=== PATIENT | female | born 1985 | race Caucasian/White ===

== ENCOUNTER → 2017-09-23 09:07 | Outpatient (POV) | payer OTHER, SELFPAY | PROVIDERS: PCP Internal Medicine Adolescent Medicine; Visit Provider Otolaryngology | DX: Z00.00 Encounter for general adult medical examination without abnormal findings (principal) ==

== ENCOUNTER → 2017-10-31 14:35 | Outpatient (CLI) | payer OTHER, SELFPAY ==
[2017-10-31 16:57] LABS: Free Thyroxine Index 5.2 ug/dL (5.93-13.13); T4 (Thyroxine) 15.4 ug/dl (4.7-13.3); Thyroid Stimulating Hormone 1.44 uIU/ml (0.358-3.740); Triiodothryronine (T3) Uptake 34 % (31-39)
== END ==
PROVIDERS: Visit Provider Nurse Practitioner Family
DX: E03.9 Hypothyroidism, unspecified (principal)
CPT/HCPCS: 36415; 84436; 84443; 84479

== ENCOUNTER → 2017-12-18 08:42 | Outpatient (POV) | payer OTHER, SELFPAY | PROVIDERS: Visit Provider Dermatology | DX: Z00.00 Encounter for general adult medical examination without abnormal findings (principal) ==

== ENCOUNTER → 2018-02-04 15:14 | Outpatient (CLI) | payer OTHER, SELFPAY ==
--- NOTE | 2018-02-04 15:15 | CA_ITS ---
CA echo doppler complete PROCEDURE: INDICATIONS FOR THE TEST: Chest pain COPD Heart Murmur Tobacco Smoking Palpitations Fatigue Syncope Edema Hypertension Diabetes Mellitus Rheumatic Fever SOB+THORNE Obesity Hyperlipidemia Family History HD Additional History HYPOTHYROIDISM PATIENT INFORMATION HEIGHT: 63 WEIGHT:150 GENDER: Female B/P:128/78 2-D/M-MODE INTERPRETATION: 2-D MEASUREMENTS OBSERVED VALUES IN CMS Right Ventricular Dimension (RVDd) 2.0 Interventricular Septum (Thickness)(IVsd) 1.0 Left Ventricular Internal Dimensions(LVIDd) 4.7 Left Ventricular Posterior Wall (Thickness)(LVPWd) 0.8 Aortic Root 2.9 Aortic Cusp Separation 2.1 Left Atrial Dimensions (LAD) 3.3 2D 1. Left atrium is normal size, left ventricle is normal size, there is no concentric left ventricular hypertrophy, visually estimated ejection fraction 55% with no obvious regional wall motion abnormality. 2. The right atrium and right ventricle are normal size and contractility. 3. The aortic, mitral and tricuspid valve are structurally normal. 4. The pulmonic valve is poorly visualized. 5. No significant pericardial effusion noted. DOPPLER INTERROGATION: Doppler interrogation of the aortic, mitral and tricuspid valvular presence of mild mitral and tricuspid regurgitation, tricuspid and jet velocity is insufficient for calculation of the right ventricular systolic pressure, diastolic parameters are within normal range. CONCLUSION: 1. Normal left ventricular size, preserved left ventricular systolic function, visually estimated ejection fraction 55% with no obvious regional motion abnormality, diastolic parameters are within normal range. 2. Mild mitral and tricuspid regurgitation 3. No significant pericardial effusion noted.
== END ==
PROVIDERS: Family Provider Internal Medicine Adolescent Medicine; PCP Internal Medicine Adolescent Medicine; Visit Provider Internal Medicine Cardiovascular Disease
DX: R06.00 Dyspnea, unspecified (principal)
CPT/HCPCS: 93306

== ENCOUNTER → 2018-05-06 14:43 | Outpatient (CLI) | payer OTHER, SELFPAY ==
[2018-05-06 16:36] LABS: Free Thyroxine Index 5.1 ug/dL (5.93-13.13); T4 (Thyroxine) 16.5 ug/dl (4.7-13.3); Thyroid Stimulating Hormone 1.42 uIU/ml (0.358-3.740); Triiodothryronine (T3) Uptake 31 % (31-39)
[2018-05-06 17:02] LABS: HCG,Quantitative 0 mIU/mL
== END ==
PROVIDERS: PCP Internal Medicine Adolescent Medicine; Visit Provider Physician Assistant
DX: R11.0 Nausea (principal)
CPT/HCPCS: 36415; 84436; 84443; 84479; 84702

== ENCOUNTER → 2018-06-05 12:19 | Outpatient (REF) | payer OTHER, SELFPAY | LOC: LAB 12:19 | PROVIDERS: Visit Provider Internal Medicine Adolescent Medicine | DX: J02.9 Acute pharyngitis, unspecified (principal) | CPT/HCPCS: 87070; 87077 ==

== ENCOUNTER → 2018-06-23 10:29 | Outpatient (POV) | payer OTHER, SELFPAY | PROVIDERS: Visit Provider Otolaryngology | DX: Z00.00 Encounter for general adult medical examination without abnormal findings (principal) ==

== ENCOUNTER → 2018-08-05 14:56 | Outpatient (CLI) | payer OTHER, SELFPAY ==
[2018-08-05 15:29] LABS: HCG,Quantitative 0 mIU/mL
== END ==
PROVIDERS: PCP Internal Medicine Adolescent Medicine; Visit Provider Internal Medicine Adolescent Medicine
DX: N91.2 Amenorrhea, unspecified (principal)
CPT/HCPCS: 36415; 84702

== ENCOUNTER 2018-10-03 14:45 | Emergency (ER) | payer OTHER, SELFPAY ==
--- NOTE | 2018-10-03 14:55 | XR_ITS ---
XR foot RT min 3V Ordering Physician: Terence Harrison Patient Age: 33 years: Female HISTORY: ITS.REASON: FELL OVER A TOY. Pain at the lateral foot TECHNIQUE: 3 views right foot nonweightbearing COMPARISON :May 2017 right foot 3 view FINDINGS No acute fracture nor dislocation The lateral foot, and fifth metatarsal appear intact with no fracture nor dislocation here. The other metatarsals intact. Cuboid and tarsals appear similar to previous study 2017. No acute finding. Hindfoot unremarkable.. Toes intact. IMPRESSION: . Right foot intact. No fracture
[2018-10-03 15:11] VITALS: BP 145/92; PULSE 85; RESP 18; TEMP 36.6; O2SAT 98; BMI 25.1
--- NOTE | 2018-10-03 15:13 | HMH.EDUTC ---
[facility] [place] Disposition Clinical Impression: Ankle injury Qualifiers: Encounter type: initial encounter Laterality: right Qualified Code(s): S99.911A - Unspecified injury of right ankle, initial encounter Foot injury Qualifiers: Encounter type: initial encounter Laterality: right Qualified Code(s): S99.921A - Unspecified injury of right foot, initial encounter Foot pain Qualifiers: Laterality: right Qualified Code(s): M79.671 - Pain in right foot Foot sprain Qualifiers: Encounter type: initial encounter Laterality: right Qualified Code(s): S93.601A - Unspecified sprain of right foot, initial encounter Disposition: Home, Self-Care Condition on Discharge: Good Instructions: DI for Ankle Pain, DI for Foot Pain, DI for Foot Sprain Additional Instructions: Rest the extremity, apply ice for 15 minutes 4 times per day for 15 minutes as tolerated, wear the compression bandage for comfort, elevate the extremity as tolerated while resting. Take ibuprofen for the pain. Follow up with your primary care physician or podiatry (Dr. Arboleda) if it is not getting better in 48 hours or so. GO TO THE ER FOR ANY WORSENING SYMPTOMS OR LIFE THREATENING SYMPTOMS Prescriptions: Ibuprofen [Ibuprofen 600mg Tablet] 600 mg PO Q6HP PRN #30 tab PRN Reason: Mild Pain Referrals: Nolberto Benavidez MD [Primary Care Provider] - Isadora Arboleda DPM [Staff Physician] - Forms: Work/School Release Time of Disposition: 15:33 Medical Decision Making - Medical Records Medical records reviewed: No: I reviewed the patient's medical records. - Elio Inquiry Pt receiving controlled substance: No Elio was queried for this patient: No Vital Signs: 10/03/18 15:11 10/03/18 15:39 Temperature 97.9 F 98 F Temperature Source Oral Oral Pulse Rate 82 Pulse Rate [Right Radial] 85 Respiratory Rate 18 18 Blood Pressure 140/87 Blood Pressure [Right Arm] 145/92 H Blood Pressure Mean [Right Arm] 109 02 Sat by Pulse Oximetry 98 Oxygen Delivery Method Room Air Room Air Orders (Tests/Meds): ED MEDICATIONS Discontinued Medications Generic Name Dose Route Start Last Admin Trade Name Freq PRN Reason Stop Dose Admin Ibuprofen 800 mg 10/03/18 15:16 10/03/18 15:21 Motrin 400mg Tablet PO 10/03/18 15:17 800 mg ONCE ONE Administration ORDERS Category Date Time Status XR foot RT min 3V Stat Exams 10/03/18 14:55 Taken - Radiology Data #1 Image(s): Ankle, Foot/Toes Image Reviewed: Yes I reviewed the patient's radiology image, Yes I reviewed the patient's radiology image w/the ED provider Preliminary Findings: Normal/NAD [facility] [place] HPI - General Stated complaint: AO [id number] Injured R foot Time Seen by Provider: 10/03/18 15:13 - History of Present Illness Provider Complaint: She states that earlier today she tripped over some toys in her floor. She felt a pop in her right foot and since then she has had right foot pain with ambulation. - Related Data Home Medications Medication Instructions Recorded Confirmed levothyroxine 50 mcg tablet 50 mcg PO DAILY tab 11/10/17 05/18/18 bupropion HCl XL 150 mg 24 hr 150 mg PO DAILY 05/18/18 05/18/18 tablet, extended release topiramate XR 50 mg PO 30 Days #30 cap 09/09/18 09/09/18 capsule,extended release 24 hr Previous Rx's Medication Instructions Recorded norgestimate 0.25 mg-ethinyl 1 tab PO DAILY 30 Days #30 tab 05/18/18 estradiol 35 mcg tablet fluconazole 150 mg tablet 150 mg PO ONCE 3 Days #2 tab 09/08/18 nitrofurantoin 100 mg PO BID 10 Days #20 cap 09/09/18 monohydrate/macrocrystals 100 mg capsule phenazopyridine 100 mg tablet 100 mg PO TID #9 tab 09/09/18 Ibuprofen [Ibuprofen 600mg 600 mg PO Q6HP PRN #30 tab 10/03/18 Tablet] Allergies Allergy/AdvReac Type Severity Reaction Status Date / Time amoxicillin [AMOXICILLIN] Allergy Unknown I-RASH Verified 10/03/18 15:14 [facility] History - Hepatitis A
[2018-10-03 15:39] VITALS: BP 140/87; PULSE 82; RESP 18; TEMP 36.6; O2SAT 100
== END 2018-10-03 15:43 | disposition home or self-care (01) ==
PROVIDERS: Emergency Provider Nurse Practitioner Family; PCP Internal Medicine Adolescent Medicine
DX: S93.601A Unspecified sprain of right foot, initial encounter (principal); W01.0XXA Fall on same level from slipping, tripping and stumbling without subsequent striking against object, initial encounter; Y92.019 Unspecified place in single-family (private) house as the place of occurrence of the external cause; Z88.1 Allergy status to other antibiotic agents
CPT/HCPCS: 73630; 99201

== ENCOUNTER → 2018-10-28 13:10 | Outpatient (CLI) | payer OTHER, SELFPAY ==
[2018-10-28 13:45] LABS: Basophils % 0.4 % (0.1-2.0); Eosinophils % 0.4 % (0.1-12.0); Hematocrit 43.1 % (37.0-47.0); Lymphocytes # 3.2 K/mm3 (0.7-4.5); Lymphocytes % 31.7 % (10-50); Mean Corpuscular HGB Conc 32.5 g/dL (31.8-35.4); Mean Corpuscular Volume 95.4 fl (81-99); Mean Platelet Volume 6.9 fl (7.4-10.4); Monocytes # 0.3 K/mm3 (0.1-1.0); Monocytes % 2.8 % (1.7-9.3); Neutrophils # 6.5 K/mm3 (1.8-7.8); Neutrophils % 64.5 % (37.0-80.0); Platelet Count 435 K/mm3 (142-424); Red Blood Count 4.52 M/mm3 (4.20-5.40); Red Cell Distribution Width 13.2 % (11.5-17.5)
== END ==
PROVIDERS: Visit Provider Urology
DX: R23.3 Spontaneous ecchymoses (principal); T14.8XXA Other injury of unspecified body region, initial encounter
CPT/HCPCS: 36415; 85025

== ENCOUNTER → 2018-11-10 15:32 | Outpatient (CLI) | payer OTHER, SELFPAY ==
[2018-11-10 15:35] LABS: Microscopic, Urine URINE MICROSCOPIC (MICROSCOPIC)
[2018-11-10 16:32] LABS: Appearance,Urine CLEAR (Clear); Bilirubin,Urine Negative (Negative); Blood, Urine TRACE-I (Negative); Color,Urine YELLOW (Yellow); Glucose,Urine (UA) Negative (Negative); Ketones,Urine Negative (Negative); Leukocyte Esterase,Urine 2+ (Negative); Nitrate,Urine Negative (Negative); PH,Urine 6.5 (5.0-8.5); Protein,Urine Negative (Negative); Specific Gravity, Urine <= 1.005 (1.005-1.030); Urobilinogen,Urine 0.2 EU/dl (0.2)
[2018-11-10 16:50] LABS: Bacteria,Urine Trace /lpf; RBC,Urine Occasional #/hpf (0-3)
== END ==
PROVIDERS: Visit Provider Urology
DX: R39.89 Other symptoms and signs involving the genitourinary system (principal)
CPT/HCPCS: 81001; 87086; 87088; 87186

== ENCOUNTER → 2018-11-27 14:59 | Outpatient (CLI) | payer OTHER, SELFPAY ==
--- NOTE | 2018-11-27 15:13 | CT_ITS ---
CT abdomen pelvis wo con CLINICAL INDICATION: Right flank pain ITS.REASON: STONE ORDERING PHYSICIAN: Nolberto Benavidez MD PATIENT AGE: 33 years COMPARISON: None TECHNIQUE: Axial images obtained with sagittal and coronal reformats. All CT scans at the facility use one or more dose reduction, viz: automated exposure control, ma/kV adjustment per patient size (including targeted exams where dose is matched to indication, i.e. head), or iterative reconstruction technique. PROCEDURE: Oral Contrast: None IV Contrast: None . FINDINGS: No acute finding in the lung bases. The liver, spleen, adrenal glands, and pancreas and gallbladder have an unremarkable unenhanced CT appearance. No renal or ureteral calculi. No hydronephrosis. There is minimal prominence of the right ureter nonspecific and could be related to recently passed stone or urinary tract infection. There is mild amount of retained colonic feces. No intestinal obstruction or free air apparent no evidence of appendicitis or diverticulitis. No pelvic mass or abnormal fluid collection or focal inflammatory change. No acute bony findings. IMPRESSION: There is no renal or ureteral calculi. There is minimal ectasia of the right ureter nonspecific but could be related to a recently passed stone or urinary tract infection Otherwise negative CT abdomen pelvis without contrast
== END ==
PROVIDERS: PCP Internal Medicine Adolescent Medicine; Visit Provider Internal Medicine Adolescent Medicine
DX: N20.0 Calculus of kidney (principal)
CPT/HCPCS: 74176

== ENCOUNTER → 2019-03-16 12:55 | Outpatient (CLI) | payer OTHER, SELFPAY ==
--- NOTE | 2019-03-16 12:59 | XR_ITS ---
XR chest 2V HISTORY: ITS.REASON: cough wheezing ORDERING PHYSICIAN: YEN Anguiano PATIENT AGE: 33 years COMPARISON: 02/20/2019 FINDINGS: The cardiomediastinal silhouette and pulmonary vascularity are within normal limits. The lungs are clear without infiltrates, suspicious nodules, or pleural effusions. No acute bony abnormalities. IMPRESSION: Negative chest, no acute finding
[2019-03-16 14:53] LABS: Basophils # 0.1 K/mm3 (0-0.2); Basophils % 0.4 % (0.1-2.0); Eosinophils # 0.1 K/mm3 (0.0-0.4); Eosinophils % 0.7 % (0.1-12.0); Hematocrit 43.3 % (37.0-47.0); Hemoglobin 13.9 g/dL (12.2-16.2); Lymphocytes # 2.6 K/mm3 (0.7-4.5); Lymphocytes % 19.8 % (10-50); Mean Corpuscular Hemoglobin 30.6 pg (27.0-31.2); Mean Corpuscular Volume 95.6 fl (81-99); Mean Platelet Volume 6.9 fl (7.4-10.4); Monocytes # 0.6 K/mm3 (0.1-1.0); Monocytes % 4.7 % (1.7-9.3); Neutrophils # 9.6 K/mm3 (1.8-7.8); Neutrophils % 74.4 % (37.0-80.0); Platelet Count 377 K/mm3 (142-424); Red Blood Count 4.53 M/mm3 (4.20-5.40); Red Cell Distribution Width 12.9 % (11.5-17.5); White Blood Count 12.9 K/mm3 (4.8-10.8)
== END ==
PROVIDERS: PCP Internal Medicine Adolescent Medicine; Visit Provider Physician Assistant
DX: R05 Cough (principal); R06.2 Wheezing
CPT/HCPCS: 36415; 71046; 85025

== ENCOUNTER → 2019-05-31 14:15 | Outpatient (CLI) | payer OTHER, SELFPAY ==
[2019-05-31 17:28] LABS: Free Thyroxine Index 4.9 ug/dL (5.93-13.13); T4 (Thyroxine) 14.5 ug/dl (4.7-13.3); Thyroid Stimulating Hormone 2.31 uIU/ml (0.358-3.740); Triiodothryronine (T3) Uptake 34 % (31-39)
== END ==
PROVIDERS: Visit Provider Physician Assistant
DX: E03.9 Hypothyroidism, unspecified (principal)
CPT/HCPCS: 36415; 84436; 84443; 84479

== ENCOUNTER → 2019-06-08 08:41 | Outpatient (CLI) | payer OTHER, SELFPAY ==
--- NOTE | 2019-06-08 09:00 | US_ITS ---
PROCEDURE: US GALLBLADDER CLINICAL INDICATION: UPPER ABD PAIN Right upper quadrant pain with nausea COMPARISON: No exams were available for comparison FINDINGS: Pancreas: Unremarkable/Not well seen Liver: Unremarkable. There is appropriate direction of blood flow within a non dilated portal vein. Right kidney: Unremarkable appearing. No hydronephrosis. Gallbladder: No stones are evident. There is no gallbladder wall thickening. Common duct is normal in diameter. Minimal amount of gallbladder sludge noted IMPRESSION: No gallstones apparent. Minimal gallbladder sludge of questionable clinical significance Dictated by: Delonte Murphy MD 06/08/2019 18:06 Electronically signed by Delonte Murphy MD in [place] 06/08/2019 18:06
== END ==
PROVIDERS: PCP Internal Medicine Adolescent Medicine; Visit Provider Nurse Practitioner Family
DX: R10.10 Upper abdominal pain, unspecified (principal)
CPT/HCPCS: 76705

== ENCOUNTER → 2019-08-27 13:01 | Outpatient (CLI) | payer OTHER, SELFPAY ==
--- NOTE | 2019-08-27 13:02 | CA_ITS ---
APPROVED REPORT Left Lower Extremity Venous Study for DVT. Cnc Lathe Machine Operator: Joyce Kaur RT(R) Indications Lower Extremity Pain: Lower Extremity Edema: Left left leg edema/pain Vein Imaging CFV (L): compressive, spontaneous, phasic, augmentation FEM (L): compressive, spontaneous, phasic, augmentation POP (L): compressive, spontaneous, phasic, augmentation PTV (L): Compressible GSV (L): compressive, spontaneous, phasic, augmentation SSV (L): Compressible Peroneals (L):Compressible GAS (L): Compressible Findings No evidence of DVT or superficial thrombophlebitis in the veins scanned of the left lower extremity. Conclusion No evidence of DVT or superficial thrombophlebitis in the veins scanned of the left lower extremity. Electronically signed by : Delonte Murphy MD 08/27/2019 15:46:29
== END ==
PROVIDERS: PCP Internal Medicine Adolescent Medicine; Visit Provider Internal Medicine Cardiovascular Disease
DX: R60.0 Localized edema (principal)
CPT/HCPCS: 93971

== ENCOUNTER → 2019-09-06 08:42 | Outpatient (CLI) | payer OTHER, SELFPAY ==
[2019-09-06 10:04] LABS: Free T4 (Free Thyroxine) 1.29 ng/dl (0.76-1.46); Thyroid Stimulating Hormone 1.62 uIU/ml (0.358-3.740)
[2019-09-06 10:05] LABS: HCG,Quantitative 0 mIU/mL
[2019-09-08 18:16] LABS: Triiodothyronine (T3) Free 3.1 pg/mL (2.0-4.4)
== END ==
PROVIDERS: Nurse Practitioner Obstetrics & Gynecology; Visit Provider Internal Medicine
DX: Z34.90 Encounter for supervision of normal pregnancy, unspecified, unspecified trimester (principal); E07.9 Disorder of thyroid, unspecified
CPT/HCPCS: 36415; 84439; 84443; 84481; 84702

== ENCOUNTER → 2019-09-24 15:22 | Outpatient (CLI) | payer OTHER, SELFPAY ==
[2019-09-24 16:17] LABS: Alanine Aminotransferase 17 U/L (12-78); Albumin Level 3.4 gm/dL (3.4-5.0); Albumin/Globulin Ratio 1.2 (1.1-1.8); Alkaline Phosphatase 58 U/L (46-116); Anion Gap 11.9 mEq/L (5-15); Aspartate Amino Transferase 13 U/L (15-37); Bilirubin,Total 0.3 mg/dL (0.2-1.0); Blood Urea Nitrogen 9 mg/dL (7-18); Calcium 8.5 mg/dL (8.5-10.1); Carbon Dioxide 27 mmol/L (21.0-32.0); Chloride 105 mmol/L (98-107); Creatinine,Serum 0.86 mg/dL (0.55-1.02); Estimated Glomerular Filt Rate 76 ml/min (>60); GFR (African American) 93 ML/MIN (>60); Globulin 2.8 gm/dl (1.3-3.2); Glucose 92 mg/dL (74-106); Potassium 3.9 mmoL/L (3.5-5.1); Sodium 140 mmol/L (136-145); Total Protein,Serum 6.2 gm/dL (6.4-8.2)
== END ==
PROVIDERS: Visit Provider Internal Medicine Adolescent Medicine
DX: R10.11 Right upper quadrant pain (principal)
CPT/HCPCS: 36415; 80053

== ENCOUNTER → 2019-09-30 10:20 | Outpatient (CLI) | payer OTHER, SELFPAY ==
--- NOTE | 2019-09-30 10:24 | NM_ITS ---
PROCEDURE: NM HEPATOBILIARY W PHARM CLINICAL INDICATION: RUQ pain, GB SLUDGE COMPARISON: No exams were available for comparison TECHNIQUE: DOSE: 8.14 mCi technetium Choletec and 1.3 mcg of CCK FINDINGS: Homogeneous activity is present within the hepatic parenchyma. Activity is present in the gallbladder by 50 minutes. Activity is present in the small bowel by 5 minutes. The gallbladder ejection fraction is calculated to be 22 percent.. There was delay in visualization of the gallbladder only noted at 50 minutes. At this time CCK was administered. Most of the activity at that time was in the small bowel. There was no symptoms noted with CCK infusion IMPRESSION: 1. There was some delay in visualization of the gallbladder only noted at 50 minutes. Small bowel is visualized by 5 minutes. 2. Gallbladder ejection fraction is low at 22 percent. This could however in part be due to the delayed visualization of the gallbladder versus gallbladder dyskinesia. No symptoms were reported with CCK infusion Dictated by: Delonte Murphy MD 10/01/2019 09:26 Electronically signed by Delonte Murphy MD in [place] 10/01/2019 09:26
[2019-09-30 11:03] LABS: Urine Pregnancy, HCG Qual. Negative (Negative)
== END ==
PROVIDERS: PCP Internal Medicine Adolescent Medicine; Visit Provider Internal Medicine Adolescent Medicine
DX: R10.11 Right upper quadrant pain (principal); K82.8 Other specified diseases of gallbladder
CPT/HCPCS: 78227; 81025; A9537; J2805

== ENCOUNTER → 2019-10-11 08:31 | Outpatient (CLI) | payer OTHER, SELFPAY ==
--- NOTE | 2019-10-11 08:33 | XR_ITS ---
PROCEDURE: XR CERVICAL SPINE W FLEX/EXT CLINICAL INDICATION: neck pain COMPARISON: No exams were available for comparison FINDINGS: There is straightening of the cervical lordosis. There is normal alignment. No fracture or dislocation. No lytic or blastic change. No evidence of cervical rib. No significant degenerative changes. Flexion and extension views are obtained. No abnormal subluxation in flexion. On the extension image, there is slight increased posterior subluxation C4 on C5 compared to the remaining levels. The posterior subluxation at this level is approximately 2 mm. This is of questionable clinical significance. The disc spaces are well preserved. IMPRESSION: 1. There is straightening/reversal of the normal lordosis which may be due to patient positioning or muscle spasm. 2. Mild posterior subluxation in extension of C4 on C5 of approximately 2 mm Dictated by: Delonte Murphy MD 10/11/2019 09:11 Electronically signed by Delonte Murphy MD in [place] 10/11/2019 09:11
== END ==
PROVIDERS: PCP Internal Medicine Adolescent Medicine; Visit Provider Nurse Practitioner Family
DX: G43.919 Migraine, unspecified, intractable, without status migrainosus (principal); M54.2 Cervicalgia
CPT/HCPCS: 72052

== ENCOUNTER → 2019-10-12 16:01 | Outpatient (CLI) | payer OTHER, SELFPAY ==
--- NOTE | 2019-10-12 16:01 | MR_ITS ---
PROCEDURE: MR CERVICAL SPINE WO CON CLINICAL INDICATION: abn cspine xr, neck pn, bilat upper ext weaknes Neck pain, abnormal radiograph. COMPARISON: XR CERVICAL SPINE W FLEX/EXT from 10/11/2019 MR HEAD/BRAIN WO CON from 10/12/2019 TECHNIQUE: Standard multiplanar multiecho sequences are performed without contrast. 3-D MIP and myelographic images are also rendered and reviewed FINDINGS: There is straightening of the cervical lordosis. This is nonspecific and could be due to patient positioning or muscle spasm. Craniocervical junction has an unremarkable appearance. C2-C3: Unremarkable. C3-C4: Unremarkable. C4-C5: Unremarkable. No abnormal ligamentous signal. There is normal alignment at C4-C5. C5-C6: Very minimal bulging of the disc centrally slightly eccentric toward the right without impingement. C6-C7 and C7-T1 have an unremarkable appearance. No prevertebral abnormal signal or soft tissue swelling. There is an air-fluid level in the sphenoid sinus IMPRESSION: 1. Straightening of cervical lordosis. 2. Minimal bulging disc at C5-C6 3. No disc herniation or canal stenosis. Dictated by: Delonte Murphy MD 10/13/2019 10:17 Electronically signed by Delonte Murphy MD in [place] 10/13/2019 10:17
--- NOTE | 2019-10-12 16:01 | MR_ITS ---
PROCEDURE: MR HEAD/BRAIN WO CON CLINICAL INDICATION: migraine Severe headache with neck pain, cluster headache COMPARISON: No exams were available for comparison TECHNIQUE: Routine multiplanar multi echo sequences are performed without gadolinium enhancement. FINDINGS: No midline shift, mass effect, intracranial hemorrhage, or hydrocephalus is evident. The cerebellopontine angles, cerebellum, and brainstem are unremarkable. There are few scattered small punctate foci increased T2 white matter signal intensity in the frontal lobes and right parietal lobe. These are nonspecific. Unremarkable pituitary, optic chiasm, corpus callosum, and craniocervical junction. There is an air-fluid level in the sphenoid sinus on the right with mucosal thickening of the sphenoid sinus. There is marked mucosal thickening of the left maxillary sinus with air-fluid level in the left maxillary sinus and with bilateral ethmoid sinus mucosal thickening and minimal mucosal thickening of the right maxillary sinus. IMPRESSION: 1. Nonspecific small T2 white matter hyperintensities. This may be seen with migraine headache. Ischemic gliotic foci or demyelinating process would be included in the differential diagnosis. 2. Sinusitis with air-fluid levels in the right sphenoid sinus and the left maxillary sinus. Dictated by: Delonte Murphy MD 10/13/2019 13:25 Electronically signed by Delonte Murphy MD in [place] 10/13/2019 13:25
== END ==
PROVIDERS: PCP Internal Medicine Adolescent Medicine; Visit Provider Nurse Practitioner Family
DX: G43.919 Migraine, unspecified, intractable, without status migrainosus (principal); M54.2 Cervicalgia; R29.898 Other symptoms and signs involving the musculoskeletal system; R93.7 Abnormal findings on diagnostic imaging of other parts of musculoskeletal system
CPT/HCPCS: 70551; 72141; 76376

== ENCOUNTER 2019-10-14 08:00 | Outpatient (RCR) | payer OTHER, SELFPAY ==
--- NOTE | 2019-10-11 16:12 | HMH.PTOPEV ---
PT Outpatient Evaluation Rehab PT Outpatient Evaluation Start: 10/11/19 14:59 Freq: Status: Active Protocol: Document 10/11/19 15:29 ROSALINDA (Rec: 10/11/19 16:11 ROSALINDA [id number]) Electronically Signed By Faisal Phillips, PT 10/11/19 15:29 Outpatient Therapy Subjective History Subjective History Pt reports h/o chronic neck pain and tightness, however, reports migraine/cervicogenic CAMARGO's over the last couple months. Pt reports CAMARGO freq at ~5-6x/wk, and reports R > L sided neck, no radicular s/s. Recent cervical Xray reveals some decreased lordosis. Chief Complaint Pain,Stiff Symptom Type Ache,Dull Symptoms Relieved By Rest/Positioning,Heat Symptoms Aggravated By Physical Activity,Lifting Prior Functional Limitations Reaching,Lifting,Housework Current Functional Limitations Reaching,Lifting,Housework Symptom Description Constant but Variable Level of pain today (0-10) 6 Pain scale - at its best (0-10) 5 Pain scale - at its worst (0-10) 9 Cervical Eval Palpation Cervical Muscles R Cervical Paraspinal,R Suboccipital,R CT Junction,L CT Junction,R Upper Trapezius Cervical/Thoracic Palpation Findings Tenderness,Trigger Point Posture Head/C-Spine Posture Sitting Position Neutral Position Head/C-Spine Posture Standing Position Neutral Position Flexibility Deficits Upper Trapezius Muscle Length (R) Mild Tightness,(R) Moderate Tightness Pectoralis Major Muscle Length (R) Mild Tightness,(L) Mild Tightness Pectoralis Minor Muscle Length (R) Mild Tightness,(L) Mild Tightness Passive Joint Mobility Cervical PIVM WNL: R OA L OA R AA L AA R C2/3 L C2/3 R C3/4 L C3/4 R C4/5 L C4/5 R C5/6 L C5/6 R C6/7 L C6/7 R C7/T1 L C7/T1 AROM Cervical Spine Extension Active Range of 0-35 Motion (degrees) Cervical Spine Flexion Active Range of 0-35 Motion (degrees)
== END 2019-10-14 08:55 | disposition home or self-care (01) ==
LOC: PT 08:00
PROVIDERS: PCP Internal Medicine Adolescent Medicine; Visit Provider Nurse Practitioner Family
DX: M54.2 Cervicalgia (principal); G43.919 Migraine, unspecified, intractable, without status migrainosus
CPT/HCPCS: 20560; 97010; 97014; 97035; 97110; 97140; 97163; G0283

== ENCOUNTER → 2019-11-05 13:00 | Outpatient (CLI) | payer OTHER, SELFPAY | PROVIDERS: PCP Internal Medicine Adolescent Medicine; Visit Provider Physician Assistant | DX: R06.02 Shortness of breath (principal) | CPT/HCPCS: 93306 ==

== ENCOUNTER → 2019-12-29 08:52 | Outpatient (CLI) | payer OTHER, SELFPAY ==
[2019-12-29 09:19] LABS: Basophils # 0.1 K/mm3 (0-0.2); Basophils % 0.9 % (0.1-2.0); Eosinophils # 0.1 K/mm3 (0.0-0.4); Eosinophils % 1.1 % (0.1-12.0); Hematocrit 43.6 % (37.0-47.0); Hemoglobin 14.1 g/dL (12.2-16.2); Lymphocytes # 2.5 K/mm3 (0.7-4.5); Lymphocytes % 41.3 % (10-50); Mean Corpuscular HGB Conc 32.3 g/dL (31.8-35.4); Mean Corpuscular Hemoglobin 30.6 pg (27.0-31.2); Mean Corpuscular Volume 94.6 fl (81-99); Mean Platelet Volume 7.2 fl (7.4-10.4); Monocytes # 0.3 K/mm3 (0.1-1.0); Monocytes % 4.7 % (1.7-9.3); Neutrophils # 3.2 K/mm3 (1.8-7.8); Platelet Count 343 K/mm3 (142-424); Red Blood Count 4.61 M/mm3 (4.20-5.40); Red Cell Distribution Width 12.7 % (11.5-17.5); White Blood Count 6.1 K/mm3 (4.8-10.8)
[2019-12-29 10:13] LABS: Chloride 104 mmol/L (98-107); Potassium 4.2 mmoL/L (3.5-5.1); Sodium 136 mmol/L (136-145)
[2019-12-29 10:16] LABS: Alanine Aminotransferase 8 U/L (12-78); Albumin Level 3.9 g/dl (3.5-5.0); Albumin/Globulin Ratio 1.5 (1.1-1.8); Alkaline Phosphatase 52 U/L (38-126); Anion Gap 10.2 mEq/L (5-15); Aspartate Amino Transferase 18 U/L (14-36); Bilirubin,Total 0.6 mg/dl (0.2-1.3); Blood Urea Nitrogen 15 mg/dl (7-17); Calcium 9.2 mg/dl (8.4-10.2); Carbon Dioxide 26 mmol/L (22.0-30.0); Estimated Glomerular Filt Rate 83 ml/min (>60); GFR (African American) 101 ML/MIN (>60); Globulin 2.6 g/dL (1.3-3.2); Glucose 95 mg/dl (74-100); Total Protein,Serum 6.5 g/dl (6.3-8.2)
[2019-12-29 10:21] LABS: Urine Pregnancy, HCG Qual. Negative (Negative)
[2019-12-30 14:12] LABS: Covid-19 Nasal PCR Sendout Lex NOT DETECTED
== END ==
PROVIDERS: PCP Nurse Practitioner Obstetrics & Gynecology; Visit Provider Surgery
DX: Z01.818 Encounter for other preprocedural examination (principal); R10.11 Right upper quadrant pain
CPT/HCPCS: 36415; 80053; 81025; 85025; U0004

== ENCOUNTER 2019-12-31 06:01 | Day surgery (SDC) | payer OTHER, SELFPAY ==
--- NOTE | 2019-12-28 10:21 | SUR.PREOP ---
12/28/2019 @ 1000--PHONE CALL MADE TO PATIENT. PATIENT UNDERSTANDS THAT LAB WORK AND COVID TESTING NEEDS TO BE COMPLETED BY 11 AM ON 12/29/2019. PATIENT UNDERSTANDS IF LAB WORK AND COVID-19 TESTS ARE NOT COMPLETED BY 12PM ON THAT DATE, THE SURGERY SCHEDULED WILL BE CANCELLED AND RESCHEDULED FOR ANOTHER TIME.
[2019-12-30 14:16] VITALS: BMI 24.4
[2019-12-31] VITALS (14 sets, daily range): BP systolic 127–147; BP diastolic 79–96; PULSE 70–90; RESP 12–18; TEMP 36.2–43; O2SAT 97–100
--- NOTE | 2019-12-31 08:10 | HMH.ANESCL ---
[facility] Anesthesia Checklist - Structural Data Admitted From: Home Planned Operative Procedure/s: lap nikunj/btl Consent for Planned Operative Procedure(s) Verified: Yes - Additional verifications Anesthesia Reactions: No Hx Blood Transfusions: No - Airway Assessment C-Spine Mobility Assessed: Yes TMJ Mobility Assessed: Yes Dentition: Good Dentition - Neurological Assessment Level of Consciousness: Awake, Alert, Appropriate - Anesthesia Plan Anesthesia Risk discussed: Yes Anesthesia Plan: Verified ASA Class: II Anesthesia Type: General [facility] History I have reviewed the patient's past medical history: Yes Medical History: Reports:: Anxiety, Gastroesophageal Reflux Disease(GERD), Migraine, Palpitations Denies:: Cancer, Diabetes Mellitus Type 1, Diabetes Mellitus Type 2, Internal Pacemaker, MRSA, Seizures *Have you ever received a pneumonia vaccine?: No *Have you received a flu vaccine this season?: Yes Other Medical History: Reports: Thyroid Disease Anesthesia experience/problems:: none Other Surgeries: Yes: , Other. No: Pacemaker Amputation: No Fractures: No - *Social History Educational Level: Completed College Smoking Status: Never smoker Alcohol Intake: never Alcohol Intake Frequency:: a few times a month Substance Use Type: denies use *Occupational Status:: employed Housing: house Household Members: spouse, family *Travel in the last 8 weeks: None - Psychiatric History Pschychiatric History:: Reports:: Anxiety Family Hx:: No significant family history
--- NOTE | 2019-12-31 08:25 | HMH.OPNOTE ---
Date of procedure: 12/31/19 Pre-op Diagnosis:: Biliary dyskinesia Post-op Diagnosis:: Chronic cholecystitis Procedure performed:: Laparoscopic cholecystectomy Surgeon:: Idris Lroenzo MD TIMEKEEPING SUPERVISOR:: Leonardo Brady Anesthesia: GETA Estimated blood loss (mL): 10 Operative findings:: Moderate gallbladder distention with mild wall thickening and moderate fat stranding Operative note:: After informed consent was obtained, the patient was taken to the operating room and placed in the supine position. General anesthesia was induced and the abdomen was prepped and draped in a sterile fashion. After infiltration with local anesthetic an infraumbilical incision was made. A Veress needle was placed in position. The abdomen was insufflated. A 5 mm optical trocar was placed in position. Under direct visualization, a 12 mm trocar was placed in the subxiphoid position and 2 additional 5 mm trocars were placed in the right upper quadrant. The gallbladder was elevated up and over the liver margin. The tissue around the cystic duct was carefully dissected. 3 clips were placed proximally and the duct was transected with harmonic jensen. Harmonic jensen were then utilized to dissect the gallbladder away from the liver margin with careful attention to the control of the cystic artery. The gallbladder was placed in a retrieval bag and removed through the subxiphoid trocar site. The right upper quadrant was thoroughly irrigated. No active bleeding or bile leak was noted. Fascia at the subxiphoid trocar site was reapproximated utilizing 0 Ethibond. The right upper quadrant trocars were removed. Wounds were irrigated and skin was closed with 4-0 Monocryl in a subcuticular fashion. Steri-Strips were applied. General anesthesia was maintained for the patient's laparoscopic bilateral tubal ligation (Dr. Gil). Note: The 5 mm infraumbilical trocar remained in place for the patient's laparoscopic bilateral tubal ligation. Please see Dr. Gil's operative report for separate detail. Condition: stable Disposition: PACU Specimens:: Gallbladder and contents Complications:: No immediate
--- NOTE | 2019-12-31 09:16 | HMH.ANESI ---
[facility] Anesthesia Record Part I Intake, IV Amount: 2,000 Estimated blood loss (mL): 0 Urine output (mL): 0 Blood Pressure: 135/93 SaO2: 97 Pulse Rate: 77 Respiratory Rate: 12 Temperature: 98.4 F Patient is:: Awake, Drowsy, Stable Stable to PACU at:: 09:10
--- NOTE | 2019-12-31 09:20 | HMH.OPNOTE ---
Date of procedure: 12/31/19 Pre-op Diagnosis:: Desire for sterilization Post-op Diagnosis:: Desire for sterilization Procedure performed:: Laparoscopic bilateral salpingectomy Surgeon:: Khalif Gil MD SUPERVISOR OFFSET PLATE PREPARATION:: Leonardo Brady Anesthesia: GETA Estimated blood loss (mL): 10 Clinical Note:: She is a 34-year-old 2 para 2 lady who expressed desire for sterilization. She was also here for a laparoscopic cholecystectomy performed by Dr. Lorenzo. Risk and benefits of surgery as well as the irreversibility of bilateral salpingectomy were discussed with the patient prior surgery Operative findings:: She had a normal-appearing uterus. The ovaries and tubes appeared normal. Operative note:: She had been previously prepped and draped in the supine position by Dr. Torres and we prepped and draped the perineum and place her in the lithotomy position. A weighted speculum is placed in vagina and the anterior lip of the cervix was grasped with a tenaculum. I then inserted a Shawanda uterine milliliter and inserted the balloon. The umbilical trocar was already in place. The abdominal cavity was insufflated with carbon oxide gas to pressure 15 mmHg. We then injected through and through the pubic hairline, made a small incision and inserted an 8 mm trocar under direct vision. I identified the inferior gastric arteries on the left side, went lateral to these and injected through and through. I then inserted a 5 mm trocar under direct vision. The right tube was then grasped and cauterized at the cornua. I then grasped the distal end of the tube and using harmonic scalpel I cut along the mesosalpinx. The tube was then removed. This was similar performed on the patient's left side. After assuring hemostasis we then injected approximately 10 cc of 0. 2 5% ropivacaine into the pelvis. The secondary trochars were then removed under direct vision. The gas was then of the abdomen the primary trocar was removed. The 8 mm trocar site was closed deeply with 2-0 Vicryl suture followed by subcuticular 4-0 Monocryl suture. The 5 mm trocar sites were closed with subcuticular 4-0 Monocryl suture. Sterile dressings were applied. She tolerated procedure well and was taken recovery in the next condition. All sponge, instrument and needle counts were correct. The estimated blood loss during the tubal ligation was less than 10 cc. Condition: stable Disposition: PACU Specimens:: Bilateral fallopian tubes Complications:: None
--- NOTE | 2019-12-31 10:04 | PC.NURSE ---
0935- 4 mg zofran given per blue leather setter orders. see emar. pt also has scope patch behind r ear.
--- NOTE | 2019-12-31 13:31 | SUR.OPER ---
0829-end of lap nikunj procedure at this time 0838-incision made for lap bilateral salpingectomy at this time; counts correct and verified prior to incision per Pranav,RN and Jose Alberto,RN-additional time out performed with Dr. Gil and OR team
--- NOTE | 2019-12-31 13:38 | HMH.ANESII ---
[facility] Anesthesia Record Part II Discharge Time: 09:40 Destination: [facility] PACU nurse assessment reviewed?: Yes Patient Condition:: Good Anesthesia Complications:: None Swallowing reflex intact?: Yes Cyanosis?: No Blood Pressure: 141/79 Pulse Rate: 79 Temperature: 97.1 F Mental Status: Alert & Oriented Pain level:: 8 Nausea and/or vomitting:: Nauseated Intake, IV Amount: 1,500
== END 2019-12-31 10:53 | disposition home or self-care (01) ==
LOC: OR 06:02
PROVIDERS: Nurse Practitioner Obstetrics & Gynecology; PCP Internal Medicine Adolescent Medicine; Visit Provider Surgery
PROC: 0FT44ZZ Resection of Gallbladder, Percutaneous Endoscopic Approach (ICD-10-PCS; CPT 47562; principal; 2019-12-31 07:30)
PROC: (CPT 58661; 2019-12-31 07:30)
DX: K81.1 Chronic cholecystitis (principal); Z30.2 Encounter for sterilization
CPT/HCPCS: 47562; 58661; 96374; J2405

== ENCOUNTER → 2020-01-19 10:48 | Outpatient (CLI) | payer OTHER, SELFPAY ==
--- NOTE | 2020-01-19 10:51 | US_ITS ---
PROCEDURE: US BREAST RT COMPLETE CLINICAL INDICATION: Right Breast Lump near the 4 o'clock position COMPARISON: BL US BREAST-LT from 04/12/2014 FINDINGS: Diffuse heterogenic echogenicity is seen in the areas of the breast scanned not unexpected in a young lady. There is no cystic or solid nodule identified in the area of the patient's complaint. There is a normal appearing node in the axilla. IMPRESSION: Ultrasound findings consistent with moderate fibrocystic changes not unexpected at this age, if there is a persistent lump or subsequent interval change in the possible lump than possibly a follow-up mammogram should be considered. Dictated by: Dr. Eder Car MD 01/21/2020 12:[address] Eder Car MD in [place] 01/21/2020 12:05
== END ==
PROVIDERS: PCP Internal Medicine Adolescent Medicine; Visit Provider Nurse Practitioner Obstetrics & Gynecology
DX: N63.10 Unspecified lump in the right breast, unspecified quadrant (principal)
CPT/HCPCS: 76641

== ENCOUNTER → 2020-02-09 08:56 | Outpatient (CLI) | payer OTHER, SELFPAY ==
[2020-02-09 10:25] LABS: Coronavirus 19 IgG Antibody Negative (Negative); Coronavirus 19 IgM Antibody Negative (Negative)
== END ==
PROVIDERS: Visit Provider Surgery
DX: Z01.818 Encounter for other preprocedural examination (principal)
CPT/HCPCS: 36415; 86328

== ENCOUNTER 2020-02-10 07:14 | Day surgery (SDC) | payer OTHER, SELFPAY ==
--- NOTE | 2020-02-08 09:45 | SUR.PREOP ---
02/08/2020 @ 0945--PHONE CALL MADE TO PATIENT. PATIENT UNDERSTANDS THAT LAB WORK AND COVID TESTING NEEDS TO BE COMPLETED BETWEEN 8-12 ON 02/09/2020. PATIENT UNDERSTANDS IF LAB WORK AND COVID-19 TESTS ARE NOT COMPLETED BY 12PM ON THAT DATE, THE SURGERY SCHEDULED WILL BE CANCELLED AND RESCHEDULED FOR ANOTHER TIME.
[2020-02-10 07:26] VITALS: BMI 23.9
[2020-02-10 07:27] VITALS: BP 126/66; PULSE 77; RESP 18; TEMP 36.6; O2SAT 100
--- NOTE | 2020-02-10 07:48 | P.PN_ITS ---
[facility] Anesthesia Checklist - Patient Identification Patient Identification: Arm Band, Verbal (Name & ) - Structural Data Admitted From: Home Planned Operative Procedure/s: egd Consent for Planned Operative Procedure(s) Verified: Yes Verified Documents: History and Physical - NPO Status Verified Time NPO: 00:00 - Chart Verification Results Verified: CBC, BMP - Additional verifications Patient : No Anesthesia Reactions: No Hx Blood Transfusions: No Blood Transfusion Reaction: No Cephalosporin Allergy: No Previous Colonoscopy: No - Cardiovascular Assessment Heart Sounds: S1 & S2 Pulse Strength: Baseline Pulse Rhythm: Regular Peripheral Edema: No - Airway Assessment C-Spine Mobility Assessed: Yes TMJ Mobility Assessed: Yes Dentition: Good Dentition - Neurological Assessment Level of Consciousness: Awake, Alert, Appropriate Hx Seizures: No Numbness or tingling in extremities: No - Anesthesia Plan Anesthesia Risk discussed: Yes Anesthesia Plan: Verified ASA Class: II Anesthesia Type: MAC [facility] History I have reviewed the patient's past medical history: Yes Medical History: Reports:: Anxiety, Gastroesophageal Reflux Disease(GERD), Migraine, Palpitations Denies:: Cancer, Diabetes Mellitus Type 1, Diabetes Mellitus Type 2, Internal Pacemaker, MRSA, Seizures *Have you ever received a pneumonia vaccine?: No *Have you received a flu vaccine this season?: Yes Other Medical History: Reports: Thyroid Disease Anesthesia experience/problems:: none Other Surgeries: Yes: Cholecystectomy, , Tubal Ligation, Other. No: Pacemaker Amputation: No Fractures: No - *Social History Educational Level: Completed College Smoking Status: Never smoker Alcohol Intake: current Alcohol Intake Frequency:: holidays/special occasions only Substance Use Type: denies use *Occupational Status:: employed Housing: house Household Members: spouse, family *Travel in the last 8 weeks: None - Psychiatric History Pschychiatric History:: Reports:: Anxiety Family Hx:: No significant family history
[2020-02-10 08:32] VITALS: O2SAT 99
--- NOTE | 2020-02-10 08:40 | HMH.SCOPE ---
- Procedure: Date: 02/10/20 Procedure Performed:: Esophagogastroduodenoscopy with biopsy Indications:: Epigastric pain Gastroesophageal reflux Performing Provider:: Idris Lorenzo MD Referring Provider:: . Sedation:: Monitored anesthesia care Procedure:: After informed consent was obtained the patient was taken to the endoscopy suite. Sedation ensued after the patient was transferred to the left lateral decubitus position. Pulse, blood pressure, and oxygen saturation were monitored throughout the procedure. The endoscope was advanced beyond the duodenal bulb. Retroflexion within the gastric lumen was accomplished. The gastroscope was carefully removed and the patient was transferred to recovery in stable condition. Please see findings and specimens below for detail. Findings:: Gastroesophageal junction at 40 cm Mild gastritis Acute angulation of duodenal bulb/duodenal sweep without signs of inflammation or obstruction Specimens:: Antral biopsy Recommendations:: Follow-up pathology Consider UGI/SBFT Consider gastric emptying scan Possible gastroenterology consultation Complications:: No immediate Estimated blood obtained (mL): 1
[2020-02-10 08:42] VITALS: BP 111/67; PULSE 99; RESP 18; TEMP 36.1; O2SAT 96
[2020-02-10 08:52] VITALS: BP 106/68; PULSE 88; RESP 18; O2SAT 100
[2020-02-10 09:02] VITALS: BP 122/77; PULSE 73; RESP 18; O2SAT 99
[2020-02-10 09:12] VITALS: BP 119/86; PULSE 68; RESP 18; O2SAT 99
== END 2020-02-10 09:19 | disposition home or self-care (01) ==
LOC: OUTP 07:15
PROVIDERS: PCP Internal Medicine Adolescent Medicine; Visit Provider Surgery
PROC: 0DJ08ZZ Inspection of Upper Intestinal Tract, Via Natural or Artificial Opening Endoscopic (ICD-10-PCS; CPT 43235; principal; 2020-02-10 08:30)
DX: K29.70 Gastritis, unspecified, without bleeding (principal)
CPT/HCPCS: 43239

== ENCOUNTER 2020-03-07 07:39 | Emergency (ER) | payer OTHER, SELFPAY ==
[2020-03-07 07:49] VITALS: BP 138/95; PULSE 80; RESP 16; TEMP 36.8; O2SAT 98; BMI 24.7
[2020-03-07 07:51] LABS: Microscopic, Urine URINE MICROSCOPIC (MICROSCOPIC)
[2020-03-07 07:55] LABS: Appearance,Urine CLEAR (Clear); Bilirubin,Urine Negative (Negative); Blood, Urine Negative (Negative); Color,Urine YELLOW (Yellow); Glucose,Urine (UA) Negative (Negative); Ketones,Urine Negative (Negative); Leukocyte Esterase,Urine Negative (Negative); Nitrate,Urine Negative (Negative); PH,Urine 8.5 (5.0-8.5); Protein,Urine Negative (Negative); Urobilinogen,Urine 0.2 EU/dl (0.2)
[2020-03-07 07:57] LABS: Urine Pregnancy, HCG Qual. Negative (Negative)
[2020-03-07 07:59] VITALS: BP 156/103; PULSE 96; O2SAT 97
[2020-03-07 08:07] LABS: RBC,Urine Occasional #/hpf (0-3); WBC,Urine Occasional #/hpf (0-3)
--- NOTE | 2020-03-07 08:08 | CT_ITS ---
Procedure: CT ANGIO NECK CLINICAL HISTORY: headache, neck pain, right arm numb Severe headache with pressure in front of head with nausea, right arm numbness the COMPARISON: No exams were available for comparison TECHNIQUE: IV Contrast: 100ml Optiray 350 Axial images obtained with sagittal and coronal reformats. All CT scans at the facility use one or more dose reduction, viz: automated exposure control, ma/kV adjustment per patient size (including targeted exams where dose is matched to indication, i.e. head), or iterative reconstruction technique. FINDINGS: CT angio neck: The aortic arch has an unremarkable appearance. The great vessels are unremarkable. Unremarkable appearing bilateral vertebral arteries. The carotids, carotid bulbs, and internal carotid arteries are unremarkable without evidence of stenosis, aneurysm, or dissection. There is an anatomic variant. The left occipital artery arises from the carotid bulb and not from the external carotid artery. CT angio head: No aneurysm, AVM, or major intracranial occlusive process is evident. No evidence of carotid dissection. Vertebral basilar circulation has an unremarkable appearance No midline shift, mass effect, intracranial hemorrhage, or hydrocephalus is evident. No enhancing lesions are apparent. No mastoid effusion or sinus air-fluid level. The cervical spine has an unremarkable appearance. Lung apices are clear IMPRESSION: Negative CTA of the neck and head. No acute finding Dictated by: Delonte Murphy MD 03/07/2020 09:09 Electronically signed by Delonte Murphy MD in [place] 03/07/2020 09:09
--- NOTE | 2020-03-07 08:13 | HMH.EDGENADL ---
ED Disposition Clinical Impression: Cervicogenic headache Migraine Qualifiers: Migraine type: chronic without aura Status migrainosus presence: without status migrainosus Intractability: not intractable Qualified Code(s): G43.709 - Chronic migraine without aura, not intractable, without status migrainosus Disposition: Home, Self-Care Condition on Discharge: Fair Instructions: DI for Migraine, DI for Cervical Radiculopathy Additional Instructions: You have been evaluated for headache, consistent with migraine headache. Also evaluated for cervical neck pain. Please take medications as prescribed, follow-up with your neurologist. Try to keep a headache journal, keep track of your sleep habits, diet, alleviating and exacerbating factors. Return to the emergency department if you have any new or worsening symptoms, fevers, stiff neck, worsening headache. Referrals: Nolberto Benavidez MD [Primary Care Provider] - Time of Disposition: 09:53 - Critical Care Critical Care Time: No Attestation: On 03/07/20, the high probability of a clinically significant, sudden or life threatening deterioration of the following system(s) required my full and direct attention, intervention and personal management. The time I documented below is in addition to time spent performing reported procedures but includes the following listed in this critical care notation. Medical Decision Making - Medical Records Medical records reviewed: Yes: I reviewed the patient's medical records. - Elio Inquiry Pt receiving controlled substance: No Vital Signs: 03/07/20 07:49 03/07/20 07:59 03/07/20 08:36 Temperature 98.3 F Temperature Source Oral Pulse Rate [Right] 80 96 H 81 Respiratory Rate 16 Blood Pressure [Right Arm] 138/95 H 156/103 H 147/98 H Blood Pressure Mean [Right Arm] 109 120 114 Blood Pressure Source [Right Arm] Automatic Cuff Automatic Cuff Automatic Cuff Blood Pressure Position [Right Arm] Sitting Supine Sitting 02 Sat by Pulse Oximetry 98 97 97 Oxygen Delivery Method Room Air Room Air Room Air 03/07/20 09:00 Temperature Temperature Source Pulse Rate [Right] 85 Respiratory Rate Blood Pressure [Right Arm] 130/89 Blood Pressure Mean [Right Arm] 102 Blood Pressure Source [Right Arm] Automatic Cuff Blood Pressure Position [Right Arm] Sitting 02 Sat by Pulse Oximetry 100 Oxygen Delivery Method Room Air - Lab Data Lab Results 03/07/20 07:40: Urine Color Yellow, Urine Appearance Clear, Urine pH 8.5, Ur Specific [place] 1.020, Urine Protein Negative, Urine Glucose (UA) Negative, Urine Ketones Negative, Urine Blood Negative, Urine Nitrate Negative, Urine Bilirubin Negative, Urine Urobilinogen 0.2, Ur Leukocyte Esterase Negative, Urine RBC Occasional, Urine WBC Occasional, Ur Squamous Epith Cells 10-20, Urine Bacteria None 03/07/20 07:40: Urine HCG, Qual Negative 03/07/20 08:01: WBC 9.6, RBC 4.43, Hgb 14.3, Hct 42.3, MCV 95.4, MCH 32.3 H, MCHC 33.9, RDW 13.0, Plt Count 324, MPV 7.8, Neut % (Auto) 72.7, Lymph % (Auto) 22.1, Weber % (Auto) 3.4, Eos % (Auto) 1.1, Baso % (Auto) 0.7, Neut # (Auto) 7.0, Lymph # (Auto) 2.1, Weber # (Auto) 0.3, Eos # (Auto) 0.1, Baso # (Auto) 0.1 03/07/20 08:01: Sodium 141, Potassium 3.8, Chloride 107, Carbon Dioxide 27, Anion Gap 10.8, BUN 12, Creatinine 0.70, Estimated Creat Clear 116, Estimated GFR 97, Est GFR ( Amer) 117, Glucose 111 H, Calcium 9.2, Total Bilirubin 0.5, AST 23, ALT 15, Alkaline Phosphatase 90, Total Protein 7.1, Albumin 4.3, Globulin 2.8, Albumin/Globulin Ratio 1.5 03/07/20 08:01: Serum HCG, Qual Negative Result diagrams: 03/07/20 08:01 03/07/20 08:01 Orders (Tests/Meds): ED MEDICATIONS Discontinued Medications Generic Name Dose Route Start Last Admin Trade Name Freq PRN Reason Stop Dose Admin Dexamethasone Sodium Phosphate 8 mg 03/07/20 08:56 03/07/20 09:07 Decadron 4mg/Ml 1ml Vial IV 03/07/20 08:57 8 mg ONCE ONE Administration Diphenhydramine HCl
[2020-03-07 08:18] LABS: Basophils # 0.1 K/mm3 (0-0.2); Basophils % 0.7 % (0.1-2.0); Eosinophils # 0.1 K/mm3 (0.0-0.4); Eosinophils % 1.1 % (0.1-12.0); Hematocrit 42.3 % (37.0-47.0); Hemoglobin 14.3 g/dL (12.2-16.2); Lymphocytes # 2.1 K/mm3 (0.7-4.5); Lymphocytes % 22.1 % (10-50); Mean Corpuscular HGB Conc 33.9 g/dL (31.8-35.4); Mean Corpuscular Hemoglobin 32.3 pg (27.0-31.2); Mean Corpuscular Volume 95.4 fl (81-99); Mean Platelet Volume 7.8 fl (7.4-10.4); Monocytes # 0.3 K/mm3 (0.1-1.0); Monocytes % 3.4 % (1.7-9.3); Neutrophils % 72.7 % (37.0-80.0); Platelet Count 324 K/mm3 (142-424); Red Blood Count 4.43 M/mm3 (4.20-5.40); White Blood Count 9.6 K/mm3 (4.8-10.8)
[2020-03-07 08:21] LABS: Alanine Aminotransferase 15 U/L (12-78); Albumin Level 4.3 g/dl (3.5-5.0); Albumin/Globulin Ratio 1.5 (1.1-1.8); Alkaline Phosphatase 90 U/L (38-126); Anion Gap 10.8 mEq/L (5-15); Aspartate Amino Transferase 23 U/L (14-36); Bilirubin,Total 0.5 mg/dl (0.2-1.3); Blood Urea Nitrogen 12 mg/dl (7-17); Calcium 9.2 mg/dl (8.4-10.2); Carbon Dioxide 27 mmol/L (22.0-30.0); Chloride 107 mmol/L (98-107); Creatinine Clearance Estimated 116 mL/min (50-200); Estimated Glomerular Filt Rate 97 ml/min (>60); GFR (African American) 117 ML/MIN (>60); Globulin 2.8 g/dL (1.3-3.2); Glucose 111 mg/dl (74-100); Potassium 3.8 mmoL/L (3.5-5.1); Sodium 141 mmol/L (136-145); Total Protein,Serum 7.1 g/dl (6.3-8.2)
[2020-03-07 08:23] LABS: HCG Qualitative, Serum Negative (Negative)
--- NOTE | 2020-03-07 08:26 | PC.NURSE ---
Pt with rad
--- NOTE | 2020-03-07 08:30 | PC.NURSE ---
Pt returned from rad
[2020-03-07 08:36] VITALS: BP 147/98; PULSE 81; O2SAT 97
[2020-03-07 09:00] VITALS: BP 130/89; PULSE 85; O2SAT 100
[2020-03-07 10:07] VITALS: BP 130/89; PULSE 85; RESP 16; TEMP 36.8; O2SAT 100
[2020-03-08 15:21] LABS: Covid-19 Nasal PCR Sendout Lex NOT DETECTED
== END 2020-03-07 10:09 | disposition home or self-care (01) ==
PROVIDERS: Emergency Provider Emergency Medicine; PCP Internal Medicine Adolescent Medicine
DX: G43.909 Migraine, unspecified, not intractable, without status migrainosus (principal); E11.9 Type 2 diabetes mellitus without complications; E03.9 Hypothyroidism, unspecified; K21.9 Gastro-esophageal reflux disease without esophagitis; F41.9 Anxiety disorder, unspecified; Z88.1 Allergy status to other antibiotic agents; Z90.49 Acquired absence of other specified parts of digestive tract
CPT/HCPCS: 70496; 70498; 80053; 81001; 81025; 84703; 85025; 96374; 96375; 99284; Q9967; U0004

== ENCOUNTER 2020-03-08 18:58 | Emergency (ER) | payer OTHER, SELFPAY ==
[2020-03-08 19:13] VITALS: BP 132/86; PULSE 82; RESP 21; TEMP 36.6; O2SAT 100; BMI 25.4
[2020-03-08 19:21] LABS: UTC Strep Screen (Rapid) Positive (Negative)
--- NOTE | 2020-03-08 19:24 | HMH.EDUTC ---
[facility] [place] Clinical Impression: Strep [place] Disposition: Home, Self-Care Condition on Discharge: Good Instructions: DI for Strep Throat, Strep Throat Additional Instructions: Follow up with neurology as scheduled. Drink plenty of fluids. Take tylenol or ibuprofen for pain or fever. Take the medications as directed. Follow up with your regular doctor. GO TO THE ER FOR ANY WORSENING SYMPTOMS Throw your tooth brush away and get a new one tomorrow. Prescriptions: Azithromycin [Z-Praveen 250mg Tab*] 250 mg PO UD DOSE PK #6 tab Transmission Status: Pending to [facility] Referrals: Terence Jasso MD [Primary Care Provider] - Forms: Work/School Release Time of Disposition: 19:27 Medical Decision Making - Medical Records Medical records reviewed: No: I reviewed the patient's medical records. - Elio Inquiry Pt receiving controlled substance: No Vital Signs: 03/08/20 19:13 Temperature 97.9 F Temperature Source Oral Pulse Rate [Right Brachial] 82 Respiratory Rate 21 Blood Pressure [Right Arm] 132/86 Blood Pressure Mean [Right Arm] 101 Blood Pressure Source [Right Arm] Automatic Cuff Blood Pressure Position [Right Arm] Sitting 02 Sat by Pulse Oximetry 100 Oxygen Delivery Method Room Air - Lab Data Lab results reviewed: Yes: I reviewed the patient's lab results. Lab Results 03/08/20 19:04: Strep Scn Rapid Clinic Positive [place] [facility] [place] - General Stated complaint: sore throat Time Seen by Provider: 03/08/20 19:24 Mode of Arrival: Ambulatory Source of Information: Patient Limitations: No Limitations Description of Symptoms (Recalled from Triage Doc. by RN): PATIENT C/O SORE THROAT, NECK PAIN AND NAUSEA. SHE STATES SHE WAS SEEN IN THE ER YESTERDAY AND WAS TREATED FOR MIGRAINES. SHE NOTICED AND SORE THROAT, NECK PAIN, AND WHITE PATCHES ON TONSILS TODAY. SHE STATES SHE ALSO NOTICED RED PLACES ON SCALP IN AREA WHERE SHE WAS HAVING HEAD PAIN. DENIES FEVER HEENT Symptoms (Recalled from RN notes): Yes Resp Symptoms (Recalled from RN notes): No Skin Symptoms (Recalled from RN notes): Yes MS Symptoms (Recalled from RN notes): No Functional Status (Recalled from RN notes): WNL - History of Present Illness Provider Complaint: She c/o sore throat since yesterday. She has also been having frequent headaches and a rash on the right side of her scalp. She is scheduled to see neurology tomorrow regarding the headaches. - Related Data Home Medications Medication Instructions Recorded Confirmed levothyroxine 50 mcg tablet 50 mcg PO DAILY tab 11/10/17 03/08/20 bupropion HCl 75 mg tablet 75 mg PO DAILY 10/06/19 03/08/20 famotidine 40 mg tablet 40 mg PO DAILY 12/13/19 03/08/20 Omeprazole [Omeprazole 40mg 40 mg PO DAILY 12/30/19 03/08/20 Capsule] Levocetirizine Dihydrochloride 5 mg PO DAILY 12/31/19 03/08/20 [Xyzal] Previous Rx's Medication Instructions Recorded Azithromycin [Z-Praveen 250mg Tab*] 250 mg PO UD DOSE PK #6 tab 03/08/20 Allergies Allergy/AdvReac Type Severity Reaction Status Date / Time amoxicillin [AMOXICILLIN] Allergy Unknown I-RASH Verified 03/07/20 07:56 - Worker's Comp Is this a Worker's Comp case?: No [facility] History - Hepatitis A Screen Drug use history?: No High risk sexual behaviors?: No History of sexually transmitted infection?: No Currently employed?: No Childcare worker?: No Do you have indoor plumbing?: Yes Do you have electricity?: Yes Attestation statement:: This patient has been screened for Hepatitis A risk factors. I have reviewed the patient's past medical history: Yes Medical History: Reports:: Anxiety, Diabetes Mellitus Type 2, Gastroesophageal Reflux Disease(GERD), Migraine, Palpitations Denies:: Cancer, Diabetes Mellitus Type 1, Internal Pacemaker, MRSA, Seizures Other Medical History: Reports: Thyroid Disease. Denies: Blood Transfusion Reaction Comment: FIBROCYSTIC BREASTS Other Surgeries: Yes: Cholecystectom
[2020-03-08 19:28] VITALS: BP 132/86; PULSE 82; RESP 21; TEMP 36.6; O2SAT 100
== END 2020-03-08 19:30 | disposition home or self-care (01) ==
PROVIDERS: Emergency Provider Nurse Practitioner Family; PCP Internal Medicine Adolescent Medicine
DX: J02.0 Streptococcal pharyngitis (principal); E11.9 Type 2 diabetes mellitus without complications; K21.9 Gastro-esophageal reflux disease without esophagitis; Z79.899 Other long term (current) drug therapy
CPT/HCPCS: 87880; 99201

== ENCOUNTER → 2020-03-09 08:57 | Outpatient (CLI) | payer OTHER, SELFPAY ==
[2020-03-09 09:29] LABS: Monoscreen (Rapid) Negative (Negative)
== END ==
PROVIDERS: Visit Provider Specialist
DX: G43.909 Migraine, unspecified, not intractable, without status migrainosus (principal); J02.0 Streptococcal pharyngitis; R53.81 Other malaise
CPT/HCPCS: 36415; 86318

== ENCOUNTER 2020-03-11 08:02 | Emergency (ER) | payer OTHER, SELFPAY ==
[2020-03-11 08:03] VITALS: BP 133/97; PULSE 82; RESP 17; O2SAT 100
[2020-03-11 08:08] VITALS: BP 133/97; PULSE 88; RESP 18; TEMP 37; O2SAT 100; BMI 24.7
--- NOTE | 2020-03-11 08:23 | HMH.EDGENADL ---
ED Disposition Clinical Impression: Strep tonsillitis Disposition: Home, Self-Care Condition on Discharge: Good Instructions: DI for Strep Throat Additional Instructions: Stop Zithromax and start cefuroxime. [place] as needed for pain. Drink plenty of fluids. Follow-up with primary care provider if not improved in 2 to 3 days. Return to the emergency department if unable to swallow or open mouth, uncontrollable fever greater than 104 degrees, difficulty breathing. Additional instructions for CONTROLLED SUBSTANCES: You have been prescribed a medication that is a controlled substance. Controlled substances include pain medications known as opiates and sedative nerve medications known as benzodiazepines. Tramadol, fioricet, and gabapentin are also controlled substances. Some common opiates include: Codeine (such as Tylenol #3) Hydrocodone (Vicodin, Lortab, Lorcet, [place]) Oxycodone (Percocet, Percodan, Oxycodone, Oxy IR) Some common benzodiazepines include: Diazepam (Valium) Lorazepam (Ativan) Alprazolam (Xanax) Clonazepam (Klonopin) Oxazepam (Serax) All of these controlled substances are highly addictive and frequently abused. Misuse can and frequently does lead to addiction as well as overdose and . Medication should be stored in a locked cabinet or other secure storage unit. Do not store the medication in a motor vehicle. Short term supplies, 3 days or less, are prescribed because of the highly addictive nature of the medication. Any of the controlled substance medication NOT taken should be disposed of properly and NOT SAVED. The recommended method of disposing of unused medications is: Place the medicines in a sealable plastic bag. If the medicine is a solid, crush it or add water to dissolve it. Add something undesirable (cat litter, coffee grounds, etc.) Dispose of sealed bag in household trash Do not flush or pour unused medicines down a sink or drain. Controlled substances should not be shared, given away or sold. Because of the addictive nature and frequent abuse, these medications are sometimes stolen. These medications should be kept in a safe place where they cannot be stolen. Do not keep them in your car or purse. Lost or stolen prescriptions for controlled substances WILL NOT BE REFILLED in this emergency department, regardless of whether a police report was filed. Prescriptions: Hydrocod/Acet 5/325 mg [[place] 5/325mg tablet] 1 tab PO Q6HP PRN #10 tab PRN Reason: Pain Transmission Status: Sent to [facility] cefUROXime axetiL [Ceftin 250mg Tablet] 250 mg PO BID #8 tab Transmission Status: Pending to [facility] Referrals: Nolberto Benavidez MD [Primary Care Provider] - - Critical Care Critical Care Time: No Attestation: On 03/11/20, the high probability of a clinically significant, sudden or life threatening deterioration of the following system(s) required my full and direct attention, intervention and personal management. The time I documented below is in addition to time spent performing reported procedures but includes the following listed in this critical care notation. Medical Decision Making - Elio Inquiry Pt receiving controlled substance: Yes Elio was queried for this patient: Yes Reference #:: [id number] Risks and benefits of using a controlled substance: were discussed with pt by me Comment: 2 rxs. last rx 23 norco 12/31/19. Vital Signs: 03/11/20 08:03 03/11/20 08:08 03/11/20 09:03 Temperature 98.6 F Temperature Source Oral Pulse Rate [Radial] 82 88 65 Respiratory Rate 17 18 16 Blood Pressure [Right Arm] 133/97 H 133/97 H 130/92 H Blood Pressure Mean [Right Arm] 109 109 104 Blood Pressure Source [Right Arm] Automatic Cuff Blood Pressure Position [Right Arm] Sitting 02 Sat by Pulse Oximetry 100 100 100 Oxygen Delivery Method Room Air - Lab Data Lab Results 03/11/20 08:17: WBC 9.5, RBC 4.64, Hgb 14.8, Hct 43.8,
[2020-03-11 08:28] LABS: Basophils # 0.1 K/mm3 (0-0.2); Basophils % 0.5 % (0.1-2.0); Chloride 103 mmol/L (98-107); Eosinophils # 0.1 K/mm3 (0.0-0.4); Eosinophils % 1.5 % (0.1-12.0); Hematocrit 43.8 % (37.0-47.0); Hemoglobin 14.8 g/dL (12.2-16.2); Lymphocytes # 1.8 K/mm3 (0.7-4.5); Mean Corpuscular HGB Conc 33.9 g/dL (31.8-35.4); Mean Corpuscular Volume 94.5 fl (81-99); Mean Platelet Volume 7.9 fl (7.4-10.4); Monocytes # 0.4 K/mm3 (0.1-1.0); Monocytes % 4.6 % (1.7-9.3); Neutrophils % 74.4 % (37.0-80.0); Platelet Count 330 K/mm3 (142-424); Potassium 3.8 mmoL/L (3.5-5.1); Red Blood Count 4.64 M/mm3 (4.20-5.40); Red Cell Distribution Width 12.8 % (11.5-17.5); Sodium 140 mmol/L (136-145); White Blood Count 9.5 K/mm3 (4.8-10.8)
[2020-03-11 08:31] LABS: Alanine Aminotransferase 16 U/L (12-78); Albumin Level 4.3 g/dl (3.5-5.0); Albumin/Globulin Ratio 1.5 (1.1-1.8); Alkaline Phosphatase 90 U/L (38-126); Anion Gap 11.8 mEq/L (5-15); Aspartate Amino Transferase 25 U/L (14-36); Bilirubin,Total 0.4 mg/dl (0.2-1.3); Blood Urea Nitrogen 9 mg/dl (7-17); Calcium 9.1 mg/dl (8.4-10.2); Carbon Dioxide 29 mmol/L (22.0-30.0); Creatinine Clearance Estimated 116 mL/min (50-200); Estimated Glomerular Filt Rate 97 ml/min (>60); GFR (African American) 117 ML/MIN (>60); Globulin 2.8 g/dL (1.3-3.2); Glucose 94 mg/dl (74-100); Total Protein,Serum 7.1 g/dl (6.3-8.2)
[2020-03-11 08:37] LABS: Monoscreen (Rapid) Negative (Negative)
[2020-03-11 09:03] VITALS: BP 130/92; PULSE 65; RESP 16; O2SAT 100
[2020-03-11 09:32] VITALS: BP 140/89; PULSE 72; RESP 17; TEMP 36.7; O2SAT 100
== END 2020-03-11 09:35 | disposition home or self-care (01) ==
PROVIDERS: Emergency Provider Emergency Medicine; PCP Internal Medicine Adolescent Medicine
DX: J02.0 Streptococcal pharyngitis (principal); F41.9 Anxiety disorder, unspecified; E11.9 Type 2 diabetes mellitus without complications; K21.9 Gastro-esophageal reflux disease without esophagitis; G43.709 Chronic migraine without aura, not intractable, without status migrainosus; R00.2 Palpitations; E03.9 Hypothyroidism, unspecified; Z90.49 Acquired absence of other specified parts of digestive tract; Z88.1 Allergy status to other antibiotic agents; Z79.899 Other long term (current) drug therapy
CPT/HCPCS: 80053; 85025; 86318; 96365; 96367; 96375; 99283; J2405

== ENCOUNTER → 2020-03-21 16:34 | Outpatient (CLI) | payer OTHER, SELFPAY | PROVIDERS: Visit Provider Internal Medicine Adolescent Medicine | DX: Z20.828 Contact with and (suspected) exposure to other viral communicable diseases (principal); J02.9 Acute pharyngitis, unspecified | CPT/HCPCS: U0003 ==

== ENCOUNTER → 2020-03-23 11:31 | Outpatient (CLI) | payer OTHER, SELFPAY | PROVIDERS: Visit Provider Nurse Practitioner Family | DX: J02.9 Acute pharyngitis, unspecified (principal) | CPT/HCPCS: 87070; 87077; 87186 ==

== ENCOUNTER → 2020-04-17 15:16 | Outpatient (POV) | payer OTHER, SELFPAY | PROVIDERS: Visit Provider Nurse Practitioner Family | DX: Z00.00 Encounter for general adult medical examination without abnormal findings (principal) ==

== ENCOUNTER → 2020-06-21 11:41 | Outpatient (CLI) | payer OTHER, SELFPAY ==
[2020-06-21 11:43] LABS: Microscopic, Urine URINE MICROSCOPIC (MICROSCOPIC)
[2020-06-21 12:01] LABS: Basophils # 0.1 K/mm3 (0-0.2); Basophils % 0.6 % (0.1-2.0); Eosinophils # 0.1 K/mm3 (0.0-0.4); Eosinophils % 0.9 % (0.1-12.0); Hemoglobin 13.7 g/dL (12.2-16.2); Lymphocytes # 2.5 K/mm3 (0.7-4.5); Lymphocytes % 30.4 % (10-50); Mean Corpuscular HGB Conc 31.8 g/dL (31.8-35.4); Mean Corpuscular Hemoglobin 30.8 pg (27.0-31.2); Mean Corpuscular Volume 96.8 fl (81-99); Mean Platelet Volume 7.5 fl (7.4-10.4); Monocytes # 0.4 K/mm3 (0.1-1.0); Monocytes % 4.4 % (1.7-9.3); Neutrophils # 5.2 K/mm3 (1.8-7.8); Neutrophils % 63.7 % (37.0-80.0); Platelet Count 276 K/mm3 (142-424); Red Blood Count 4.44 M/mm3 (4.20-5.40); Red Cell Distribution Width 12.4 % (11.5-17.5); White Blood Count 8.2 K/mm3 (4.8-10.8)
[2020-06-21 12:03] LABS: Appearance,Urine CLEAR (Clear); Bilirubin,Urine Negative (Negative); Blood, Urine Negative (Negative); Color,Urine YELLOW (Yellow); Glucose,Urine (UA) Negative (Negative); Ketones,Urine Negative (Negative); Leukocyte Esterase,Urine Negative (Negative); Nitrate,Urine Negative (Negative); PH,Urine 6.5 (5.0-8.5); Protein,Urine Negative (Negative); Specific Gravity, Urine 1.025 (1.005-1.030); Urobilinogen,Urine 0.2 EU/dl (0.2)
[2020-06-21 13:30] LABS: Alanine Aminotransferase 13 U/L (12-78); Albumin Level 4.4 g/dl (3.5-5.0); Alkaline Phosphatase 70 U/L (38-126); Aspartate Amino Transferase 26 U/L (14-36); Bilirubin,Direct 0.1 mg/dl (0.0-0.4); Bilirubin,Indirect 0.3 mg/dL (0.0-0.9); Bilirubin,Total 0.4 mg/dl (0.2-1.3); Bilirubin,Unconjugated 0.4 mg/dL (0.0-1.1); Total Protein,Serum 6.9 g/dl (6.3-8.2)
== END ==
PROVIDERS: Visit Provider Nurse Practitioner Family
DX: R10.9 Unspecified abdominal pain (principal)
CPT/HCPCS: 36415; 80076; 81001; 85025

== ENCOUNTER → 2020-07-05 09:29 | Outpatient (CLI) | payer OTHER, SELFPAY ==
[2020-07-05 09:40] LABS: Adenovirus,PCR Not Detected (NotDetected); Bordetella Pertussis Not Detected (NotDetected); Chlamydophila Pneumoniae, PCR Not Detected (NotDetected); Coronavirus 19, PCR Not Detected (NotDetected); Coronavirus 229E Not Detected (NotDetected); Coronavirus NL63 Not Detected (NotDetected); Coronavirus OC43 Not Detected (NotDetected); Coronovirus HKU1,PCR Not Detected (NotDetected); Human Metapneumovirus Not Detected (NotDetected); Influenza A, PCR Not Detected (NotDetected); Influenza AH1, 2009 Not Detected (NotDetected); Influenza AH1, PCR Not Detected (NotDetected); Influenza AH3,PCR Not Detected (NotDetected); Influenza B, PCR Not Detected (NotDetected); Mycoplasma Pneumoniae, PCR Not Detected (NotDetected); Parainfluenza 1, PCR Not Detected (NotDetected); Parainfluenza 2, PCR Not Detected (NotDetected); Parainfluenza 3, PCR Not Detected (NotDetected); Parainfluenza 4, PCR Not Detected (NotDetected); Respiratory Syncytial Virus Not Detected (NotDetected); Rhinovirus/Enterovirus Not Detected (NotDetected)
== END ==
PROVIDERS: PCP Internal Medicine Adolescent Medicine; Visit Provider Internal Medicine Adolescent Medicine
DX: Z03.818 Encounter for observation for suspected exposure to other biological agents ruled out (principal)
CPT/HCPCS: 87581; 87633; 87798

== ENCOUNTER → 2020-07-17 15:02 | Outpatient (POV) | payer OTHER, SELFPAY | PROVIDERS: Visit Provider Nurse Practitioner Family | DX: Z00.00 Encounter for general adult medical examination without abnormal findings (principal) ==

== ENCOUNTER → 2020-08-25 13:36 | Outpatient (CLI) | payer OTHER, SELFPAY ==
[2020-08-25 15:02] LABS: T4 (Thyroxine) 9.2 ug/dl (5.53-11.0); Triiodothryronine (T3) Uptake 33 % (23.5-40.5)
[2020-08-25 15:15] LABS: Thyroid Stimulating Hormone 2.48 uIU/mL (0.465-4.68)
== END ==
PROVIDERS: Visit Provider Urology
DX: E07.9 Disorder of thyroid, unspecified (principal)
CPT/HCPCS: 36415; 84436; 84443; 84479

== ENCOUNTER → 2020-08-28 12:16 | Outpatient (CLI) | payer OTHER, SELFPAY ==
[2020-08-28 14:38] LABS: Basophils # 0.1 K/mm3 (0-0.2); Basophils % 0.9 % (0.1-2.0); Eosinophils # 0.1 K/mm3 (0.0-0.4); Eosinophils % 1.2 % (0.1-12.0); Hematocrit 45.8 % (37.0-47.0); Hemoglobin 14.7 g/dL (12.2-16.2); Lymphocytes # 2.7 K/mm3 (0.7-4.5); Lymphocytes % 38.4 % (10-50); Mean Corpuscular HGB Conc 32.2 g/dL (31.8-35.4); Mean Corpuscular Hemoglobin 31.5 pg (27.0-31.2); Mean Corpuscular Volume 97.9 fl (81-99); Mean Platelet Volume 7.3 fl (7.4-10.4); Monocytes # 0.3 K/mm3 (0.1-1.0); Monocytes % 4.4 % (1.7-9.3); Neutrophils # 3.8 K/mm3 (1.8-7.8); Platelet Count 360 K/mm3 (142-424); Red Blood Count 4.67 M/mm3 (4.20-5.40); Red Cell Distribution Width 13.3 % (11.5-17.5); White Blood Count 6.9 K/mm3 (4.8-10.8)
[2020-08-28 15:27] LABS: Alanine Aminotransferase 12 U/L (12-78); Albumin Level 4.5 g/dl (3.5-5.0); Albumin/Globulin Ratio 1.6 (1.1-1.8); Alkaline Phosphatase 75 U/L (38-126); Anion Gap 13.5 mEq/L (5-15); Aspartate Amino Transferase 24 U/L (14-36); Bilirubin,Total 0.5 mg/dl (0.2-1.3); Blood Urea Nitrogen 13 mg/dl (7-17); Calcium 9.8 mg/dl (8.4-10.2); Carbon Dioxide 27 mmol/L (22.0-30.0); Chloride 105 mmol/L (98-107); Estimated Glomerular Filt Rate 83 ml/min (>60); GFR (African American) 101 ML/MIN (>60); Globulin 2.9 g/dL (1.3-3.2); Glucose 97 mg/dl (74-100); Potassium 4.5 mmoL/L (3.5-5.1); Sodium 141 mmol/L (136-145); Total Protein,Serum 7.4 g/dl (6.3-8.2)
== END ==
PROVIDERS: PCP Nurse Practitioner Family; Visit Provider Nurse Practitioner Family
DX: Z20.822 Contact with and (suspected) exposure to COVID-19 (principal); U07.1 COVID-19; R52 Pain, unspecified; R53.81 Other malaise
CPT/HCPCS: 36415; 80053; 85025; U0003

== ENCOUNTER → 2020-09-29 14:19 | Outpatient (CLI) | payer OTHER, SELFPAY ==
--- NOTE | 2020-09-29 14:26 | XR_ITS ---
PROCEDURE: XR LUMBAR SPINE MIN 4V CLINICAL INDICATION: LFT SCIATIC NERVE PAIN COMPARISON: No exams were available for comparison FINDINGS: There is normal curvature and alignment. All lumbar vertebrae appear intact. Disc spaces are well maintained throughout. There is no pars defect. The SI joints are normal. IMPRESSION: Unremarkable lumbar spine Dictated by: Dr. Eder Car MD 09/29/2020 14:50 Dr. Eder Car MD in [place] 09/29/2020 14:50
== END ==
PROVIDERS: PCP Internal Medicine Adolescent Medicine; Visit Provider Internal Medicine Adolescent Medicine
DX: M54.32 Sciatica, left side (principal)
CPT/HCPCS: 72110

== ENCOUNTER → 2020-10-13 15:09 | Outpatient (CLI) | payer OTHER, SELFPAY ==
--- NOTE | 2020-10-13 15:20 | MR_ITS ---
PROCEDURE: MR PELVIS WO CON CLINICAL INDICATION: ACUTE LEFT SIDED BACK PAIN S/P FALL COMPARISON: CT ABDPELWO CT abdomen pelvis wo con from 11/27/2018 CR XR LUMBAR SPINE MIN 4V from 09/29/2020 TECHNIQUE: Routine multiplanar multi echo sequences are performed without gadolinium enhancement. FINDINGS: The hips have an unremarkable appearance. No evidence of fracture or dislocation. No evidence avascular necrosis. In the right adnexa there is a rounded 3.5 cm area of isointense T1 signal slightly hyperintense on T2 with focal increased T2 signal superiorly at 2.4 cm. This is consistent with mildly prominent right ovary with a cyst superiorly. Pelvic ultrasound suggested for confirmation. A normal left ovary is not identified. Does the patient have a left ovary. The left ovary may be small and not ascertained from the overlying bowel loops. No muscular masses or abnormal fluid collections. No inguinal hernia evident. No bony abnormalities apparent. IMPRESSION: 1. Mildly enlarged right ovary with cystic involvement superiorly. Consider pelvic ultrasound for further evaluation. 2. Otherwise negative MRI of the pelvis Dictated by: Delonte Murphy MD 10/14/2020 10:31 Delonte Murphy MD in [place] 10/14/2020 10:31
--- NOTE | 2020-10-13 15:20 | MR_ITS ---
PROCEDURE: MR LUMBAR SPINE WO CON CLINICAL INDICATION: ACUTE LEFT SIDED BACK PAIN S/P FALL 09/14/20 COMPARISON: MR MR HEAD/BRAIN WO CON from 10/12/2019 TECHNIQUE: Standard multiplanar multiecho sequences are performed without contrast. 3-D MIP and myelographic images are also rendered and reviewed FINDINGS: There is normal alignment. The spinal cord ends at the L1-L2 level no disc herniation, canal stenosis, or significant degenerative change evident. No fracture or dislocation. IMPRESSION: Negative MRI of the lumbar spine. Dictated by: Delonte Murphy MD 10/14/2020 09:44 Delonte Murphy MD in [place] 10/14/2020 09:44
== END ==
PROVIDERS: PCP Internal Medicine Adolescent Medicine; Visit Provider Internal Medicine Adolescent Medicine
DX: M54.42 Lumbago with sciatica, left side (principal)
CPT/HCPCS: 72148; 72195; 76376

== ENCOUNTER 2020-10-18 08:00 | Outpatient (RCR) | payer OTHER, SELFPAY ==
--- NOTE | 2020-10-03 13:59 | HMH.PTOPEV ---
PT Outpatient Evaluation Rehab PT Outpatient Evaluation Start: 10/03/20 13:15 Freq: Status: Active Protocol: Document 10/03/20 13:20 ROSALINDA (Rec: 10/03/20 13:58 ROSALINDA [id number]) Electronically Signed By Fiasal Phillips, PT 10/03/20 13:20 Outpatient Therapy Subjective History Subjective History Pt reports h/o chronic L sided LBP since early , then severe exacerbation w/ fall on 09/14/20. Pt reports landing on L hip/low back, now presents w/L sided LBP and radicular s/s from L glut to toes. Pt reports B LE weakness w/Covid 19 in Aug, however, reports L LE weakness is now more severe than R. Chief Complaint Pain,Stiff,Paresthesia, Weakness Symptom Type Ache,Sharp,Dull,Stabbing, Burning,Numbness,Tingling Symptoms Relieved By Rest/Positioning,Heat Symptoms Aggravated By Supine,Sitting,Standing, Bending/Stooping,Twisting, Lifting Prior Functional Limitations Lifting,Housework,Standing, Squatting,Bending/Stooping Current Functional Limitations Lifting,Housework,Standing, Sitting,Bending/Stooping Symptom Description Constant but Variable Level of pain today (0-10) 4 Pain scale - at its best (0-10) 4 Pain scale - at its worst (0-10) 8 Lumbopelvic Eval Posture Thoracic Spine Posture Standing Position Neutral Lumbar Spine Posture Standing Position Neutral Assistive device Assistive Devices None / NA Gait Observation General Gait Pattern Observation No Deviations/Normal Palapation tenderness left lumbar spinal tenderness Yes: 3/4 paraspinal tenderness Yes: 3/4 buttock tenderness Yes: 3/4 Lumbar/Sacral Palpation Findings Tenderness,Muscle Guarding Accessory Movement L-spine Vertebrae Accessory Movements [employer] [place] that Elicit Symptoms L3 left,bilateral L4 left,bilateral L5 left,bilateral S1 left Range of Motion Lumbar Spine Active Flexion Range of 0-40 Motion (degrees) Lumbar Spine Active Extension Range of 0-10 Motion (degrees) Left Lumbar Spine Lateral Flexion Active 0-25 Range of Motion (degrees) Right Lumbar Spine Lateral Flexion 0-20 Active Range of Motion (degrees) Lumbar Spine ROM Limitations Pain Manual Muscle Test R
== END 2020-10-18 08:05 | disposition home or self-care (01) ==
LOC: PT 08:00
PROVIDERS: Visit Provider Internal Medicine Adolescent Medicine
DX: M54.42 Lumbago with sciatica, left side (principal)
CPT/HCPCS: 97012; 97014; 97035; 97110; 97140; 97163; G0283

== ENCOUNTER → 2020-11-10 14:00 | Outpatient (CLI) | payer OTHER, SELFPAY ==
--- NOTE | 2020-11-10 14:01 | CT_ITS ---
PROCEDURE: CT ANGIO CHEST CLINCIAL INDICATION: palpitations, SOA, history of COVID COMPARISON: No exams were available for comparison TECHNIQUE: IV Contrast: 70ML Isovue 370 Axial images obtained with sagittal and coronal reformats. All CT scans at the facility use one or more dose reduction, viz: automated exposure control, ma/kV adjustment per patient size (including targeted exams where dose is matched to indication, i.e. head), or iterative reconstruction technique. FINDINGS: HEART AND MEDIASTINAL STRUCTURES: No evidence of pulmonary embolus, aortic aneurysm, or aortic dissection.. There is some increased density in the anterior mediastinum which may be related to residual thymic tissue. LUNGS AND PLEURAL SPACES: Small linear opacity in the right apex and may be due to an area of scarring. No lobar consolidation or collapse. No ground-glass infiltrates apparent. No effusions. BONY STRUCTURES: No acute bony abnormalities apparent. UPPER ABDOMEN: Unremarkable. ADDITIONAL FINDINGS: No other significant abnormalities. IMPRESSION: No acute finding. No evidence of pulmonary embolus. Nonspecific opacity in the right apex measures approximately 9 3 mm and may be due to an area of scarring or atelectatic change. Stability may be confirmed with follow-up. Dictated by: Delonte Murphy MD 11/10/2020 15:17 Delonte Murphy MD in [facility] 11/10/2020 15:17
== END ==
PROVIDERS: PCP Internal Medicine Adolescent Medicine; Visit Provider Physician Assistant
DX: R06.02 Shortness of breath (principal); R00.2 Palpitations; Z86.16 Personal history of COVID-19
CPT/HCPCS: 71275; Q9967

== ENCOUNTER → 2020-11-14 15:21 | Outpatient (CLI) | payer OTHER, SELFPAY ==
--- NOTE | 2020-11-14 15:24 | US_ITS ---
PROCEDURE: US TRANSVAGINAL CLINICAL INDICATION: ovarian cyst COMPARISON: CT ABDPELWO CT abdomen pelvis wo con from 11/27/2018 MR MR LUMBAR SPINE WO CON from 10/13/2020 MR MR PELVIS WO CON from 10/13/2020 FINDINGS: UTERUS: x 4cmx 3cm with a combined endometrial thickness of 3.6mm LEFT OVARY: 0pdl0lrf4.1cm with a volume of 3.8ml. RIGHT OVARY: 4cmx 6udf6so with a volume of 12.6ml. Anechoic lesion is noted in the right ovary measuring 2.5 x 2 centimeters, most likely represents a cyst.. IMPRESSION: Findings are suggestive of right ovarian cyst measuring 2.5 x 2 centimeter. Otherwise unremarkable study. Follow-up as clinically indicated. Dictated by: Giselle Uribe 11/14/2020 17:02 Giselle Uribe in [facility] 11/14/2020 17:02
== END ==
PROVIDERS: PCP Internal Medicine Adolescent Medicine; Visit Provider Nurse Practitioner Obstetrics & Gynecology
DX: N83.209 Unspecified ovarian cyst, unspecified side (principal)
CPT/HCPCS: 76830

== ENCOUNTER → 2020-11-16 08:07 | Outpatient (CLI) | payer OTHER, SELFPAY ==
[2020-11-16 09:03] LABS: Basophils # 0.1 K/mm3 (0-0.2); Basophils % 1.2 % (0.1-2.0); Eosinophils # 0.1 K/mm3 (0.0-0.4); Eosinophils % 1.7 % (0.1-12.0); Hematocrit 44.8 % (37.0-47.0); Hemoglobin 13.8 g/dL (12.2-16.2); Lymphocytes # 2.3 K/mm3 (0.7-4.5); Lymphocytes % 39.8 % (10-50); Mean Corpuscular HGB Conc 30.9 g/dL (31.8-35.4); Mean Corpuscular Hemoglobin 30.8 pg (27.0-31.2); Mean Corpuscular Volume 99.4 fl (81-99); Monocytes # 0.3 K/mm3 (0.1-1.0); Monocytes % 4.9 % (1.7-9.3); Neutrophils # 3.1 K/mm3 (1.8-7.8); Neutrophils % 52.4 % (37.0-80.0); Platelet Count 313 K/mm3 (142-424); Red Cell Distribution Width 12.5 % (11.5-17.5); White Blood Count 5.8 K/mm3 (4.8-10.8)
[2020-11-16 09:35] LABS: Alanine Aminotransferase 14 U/L (12-78); Albumin Level 4.4 g/dl (3.5-5.0); Albumin/Globulin Ratio 1.6 (1.1-1.8); Alkaline Phosphatase 68 U/L (38-126); Anion Gap 11.3 mEq/L (5-15); Aspartate Amino Transferase 26 U/L (14-36); Bilirubin,Total 0.5 mg/dl (0.2-1.3); Blood Urea Nitrogen 12 mg/dl (7-17); Calcium 9.4 mg/dl (8.4-10.2); Carbon Dioxide 27 mmol/L (22.0-30.0); Chloride 106 mmol/L (98-107); Estimated Glomerular Filt Rate 83 ml/min (>60); GFR (African American) 100 ML/MIN (>60); Globulin 2.7 g/dL (1.3-3.2); Glucose 94 mg/dl (74-100); Potassium 4.3 mmoL/L (3.5-5.1); Sodium 140 mmol/L (136-145); Total Protein,Serum 7.1 g/dl (6.3-8.2)
[2020-11-16 09:53] LABS: Free Thyroxine Index 3.3 ug/dL (5.93-13.13); T4 (Thyroxine) 9.4 ug/dl (5.53-11.0); Triiodothryronine (T3) Uptake 35 % (23.5-40.5)
[2020-11-16 10:06] LABS: Thyroid Stimulating Hormone 3.77 uIU/mL (0.465-4.68)
[2020-11-16 10:25] LABS: Vitamin B12 267 pg/mL (239-931)
== END ==
PROVIDERS: Visit Provider Internal Medicine Adolescent Medicine
DX: R00.2 Palpitations (principal); E03.9 Hypothyroidism, unspecified
CPT/HCPCS: 36415; 80053; 82607; 83735; 84436; 84443; 84479; 85025

== ENCOUNTER → 2020-11-27 09:00 | Outpatient (CLI) | payer OTHER, SELFPAY ==
--- NOTE | 2020-11-27 09:02 | FL_ITS ---
PROCEDURE: FL BARIUM SWALLOW CLINICAL INDICATION: HYPOTHYROIDISM Chronic coarseness, evaluate for reflux COMPARISON: No exams were available for comparison TECHNIQUE: In the upright position the patient was observed to swallow barium in both the AP and lateral view. The cervical esophagus was examined under fluoroscopy with images obtained. The patient was then placed prone in the right anterior oblique position and was observed to swallow barium with Valsalva technique . FLUOROSCOPY TIME: 59 seconds FINDINGS: There was no evidence of aspiration. There was normal peristalsis. No filling defects or mucosal abnormalities. No masses or strictures. No evidence of hiatal hernia. Reflux was not demonstrated during the exam. IMPRESSION: Negative barium swallow. Dictated by: Delonte Murphy MD 11/27/2020 10:28 Delonte Murphy MD in [facility] 11/27/2020 10:28
--- NOTE | 2020-11-27 09:03 | US_ITS ---
PROCEDURE: US THYROID CLINICAL INDICATION: HYPOTHYROIDISM COMPARISON: No exams were available for comparison FINDINGS: The thyroid gland has an unremarkable appearance. There is homogeneous echogenicity. The right lobe is 4.5 x 1.4 x 1.5 cm. Left lobe is 4.3 x 1.2 x 1.6 cm. No thyroid nodules demonstrated. The isthmus has an unremarkable appearance IMPRESSION: Unremarkable ultrasound of the thyroid gland Dictated by: Delonte Murphy MD 11/27/2020 14:43 Delonte Murphy MD in [facility] 11/27/2020 14:43
== END ==
PROVIDERS: PCP Internal Medicine Adolescent Medicine; Visit Provider Internal Medicine Adolescent Medicine
DX: E03.9 Hypothyroidism, unspecified (principal); R09.89 Other specified symptoms and signs involving the circulatory and respiratory systems
CPT/HCPCS: 74220; 76536

== ENCOUNTER → 2021-01-07 18:45 | Outpatient (CLI) | payer OTHER, SELFPAY ==
[2021-01-07 19:19] LABS: D-Dimer 0.47 ug/mL (0.0-0.5)
[2021-01-07 19:37] LABS: Troponin I < 0.01 ng/ml (0.00-0.034)
== END ==
PROVIDERS: PCP Internal Medicine Adolescent Medicine; Visit Provider Internal Medicine
DX: R06.00 Dyspnea, unspecified (principal)
CPT/HCPCS: 36415; 84484; 85378

== ENCOUNTER → 2021-01-22 15:51 | Outpatient (POV) | payer OTHER, SELFPAY | PROVIDERS: Visit Provider Nurse Practitioner Family | DX: Z00.00 Encounter for general adult medical examination without abnormal findings (principal) ==

== ENCOUNTER → 2021-02-28 08:02 | Outpatient (CLI) | payer OTHER, SELFPAY ==
--- NOTE | 2021-02-28 08:05 | XR_ITS ---
PROCEDURE: XR FOOT WT BEARING LT 3V CLINICAL INDICATION: pain Left lateral foot pain COMPARISON: CR FTL3 FOOT-LT-3 VIEWS from 05/21/2017 CR FTR3 FOOT-RT-3 VIEWS from 05/21/2017 CR [id number] XR foot RT min 3V from 10/03/2018 FINDINGS: No fracture or dislocation. No lytic or blastic change. There is normal mineralization. The joint spaces are well-preserved. No significant degenerative/arthritic changes. No erosive changes evident. Other findings:Borderline pes planus. IMPRESSION: No acute findings. Dictated by: Delonte Murphy MD 02/28/2021 08:24 Delonte Murphy MD in [facility] 02/28/2021 08:24
== END ==
PROVIDERS: PCP Internal Medicine Adolescent Medicine; Visit Provider Podiatrist
DX: M79.672 Pain in left foot (principal)
CPT/HCPCS: 73630

== ENCOUNTER → 2021-03-23 09:04 | Outpatient (CLI) | payer OTHER, SELFPAY ==
[2021-03-23 09:51] LABS: Urine Pregnancy, HCG Qual. Negative (Negative)
== END ==
PROVIDERS: Visit Provider Internal Medicine Gastroenterology
DX: Z01.812 Encounter for preprocedural laboratory examination (principal); Z11.52 Encounter for screening for COVID-19; Z13.810 Encounter for screening for upper gastrointestinal disorder; R10.13 Epigastric pain
CPT/HCPCS: 81025; U0003

== ENCOUNTER 2021-03-26 09:15 | Day surgery (SDC) | payer OTHER, SELFPAY ==
[2021-03-21 11:08] VITALS: BMI 24.7
--- NOTE | 2021-03-26 09:24 | HMH.ANESCL ---
[facility] Anesthesia Checklist - Patient Identification Patient Identification: Arm Band - Structural Data Admitted From: Home Planned Operative Procedure/s: EGD Consent for Planned Operative Procedure(s) Verified: Yes - NPO Status Verified Time NPO: 00:00 - Additional verifications Anesthesia Reactions: No Hx Blood Transfusions: No Blood Transfusion Reaction: No - Airway Assessment C-Spine Mobility Assessed: Yes TMJ Mobility Assessed: Yes Dentition: Good Dentition - Neurological Assessment Level of Consciousness: Awake Hx Seizures: No Numbness or tingling in extremities: No - Anesthesia Plan Anesthesia Risk discussed: Yes Anesthesia Plan: Verified ASA Class: II Anesthesia Type: MAC [facility] History Medical History: Reports:: Anxiety, Diabetes Mellitus Type 2, Gastroesophageal Reflux Disease(GERD), Migraine, Palpitations Denies:: Cancer, Diabetes Mellitus Type 1, Internal Pacemaker, MRSA, Seizures *Have you ever received a pneumonia vaccine?: No *Have you received a flu vaccine this season?: Yes Other Medical History: Reports: Hypothyroidism, Thyroid Disease. Denies: Blood Transfusion Reaction Anesthesia experience/problems:: None Other Surgeries: Yes: Cholecystectomy, , EGD, Tubal Ligation, Other. No: Pacemaker Amputation: No Fractures: No - *Social History Last grade of school completed: Advanced degree Smoking Status: Never smoker #Yrs smoked (if former smoker): 10 Alcohol Intake: never Alcohol Intake Frequency:: holidays/special occasions only Substance Use Type: denies use *Occupational Status:: employed Housing: house Household Members: spouse, family *Travel in the last 8 weeks: None - Psychiatric History Pschychiatric History:: Reports:: Anxiety Family Hx:: No significant family history
[2021-03-26 09:28] VITALS: BP 131/85; PULSE 75; RESP 18; TEMP 36.3; O2SAT 100
--- NOTE | 2021-03-26 10:16 | HMH.PROC ---
[facility] Procedure Note Procedure Note:: Upper Endoscopy Procedure Report: Esophagogastroduodenoscopy with cold biopsies Endoscopost: Chas Prince II, MD Referring Physician: Nolberto Benavidez M.D. Date of Procedure: March 26, 2021 Equipment: Olympus GIF 190 standard upper endoscope Sedation: MAC sedation Indications: Mrs. Pryor is a 35-year-old female with abdominal pain primarily in the right upper quadrant. The patient does have IBS constipation, functional dyspepsia and functional intestinal disorder. The patient did have cholecystectomy in December 2019 and had improvement of her right upper quadrant abdominal pain. She did have epigastric pain subsequently and had an EGD with Dr. Idris Lorenzo M.D. last year showing mild gastritis and biopsies showed reactive gastropathy. She has been skipping 4 to 5 days without a bowel movement. She more recently has been taking MiraLAX plus collagen. The patient states that after taking a Medrol Dosepak and antibiotics more recently she had severe spasms in the right upper quadrant radiating into the back that lasted for 2 hours. This did radiate into her shoulder blade. She did try omeprazole, Tums, Pepcid and Gas-X and eventually got relief. She states that this pain was similar to her gallbladder. She has had bloating, gassiness and belching. She reports no nausea or dysphagia. She continues to have pain across the upper abdomen that is band-like in nature. Procedure: Prior to the procedure, a history and physical exam was performed, and patient's medications and allergies were reviewed. The risks, benefits and alternatives of the sedation and procedure were discussed with the patient. All questions were answered and informed consent was obtained. The patient was brought to the procedure room. Patient identification and proposed procedure were verified by the physician and the nurse. The patient was placed in a left lateral decubitus position and the scope was passed under direct vision. Throughout the procedure, the patient's blood pressure, pulse, and oxygen saturations were monitored continuously. The upper GI endoscopy was accomplished without difficulty. The patient tolerated the procedure well. Findings: The scope was passed directly into the upper esophagus and advanced to the third portion of the duodenum. The post bulbar duodenum and duodenal bulb were normal with normal mucosa and conniventes. Cold biopsies were taken from the post bulbar duodenum to rule out celiac disease. The scope was withdrawn through a normal duodenal bulb and pylorus into the stomach. There was bile reflux with moderate linear reactive gastropathy of the antrum and body of the stomach. The remainder of the fundus of the stomach was grossly normal. Upon retroflexion there was no hiatal hernia. 2 biopsies were taken in the antrum and along the lesser curvature for histology to rule out gastritis and/or H pylori. The scope was then withdrawn into the esophagus. There was a serrated Z-line and biopsies were taken at the GE junction. There was no evidence of reflux esophagitis, Philip's or Schatzki's ring. There were tertiary contractions and mild esophageal dysmotility. The remainder of the esophageal mucosa was normal. Impression: 1. Nonerosive GERD with moderate esophageal dysmotility 2. Bile reflux with moderate linear reactive gastropathy Plan: I do feel that the patient's pain is related to obstipation with colonic fermentation creating significant gas pressure gradients. The patient also has visceral sensitivity associated with her functional dyspepsia/IBS (functional intestinal disorder). I will follow-up the biopsies. I will discussed dietary measures and treatment options. If her right upper quadrant pain recurs and is similar to biliary colic, I would consider evaluation for sphincter of Oddi dysfunction.
[2021-03-26 10:20] VITALS: BP 111/83; PULSE 111; RESP 18; TEMP 36.2; O2SAT 91
[2021-03-26 10:30] VITALS: BP 100/65; PULSE 99; RESP 18; O2SAT 95
[2021-03-26 10:40] VITALS: BP 105/69; PULSE 79; RESP 18; O2SAT 95
[2021-03-26 11:05] VITALS: BP 115/76; PULSE 65; RESP 18; O2SAT 100
[2021-03-26 15:16] VITALS: O2SAT 97
== END 2021-03-26 11:07 | disposition home or self-care (01) ==
LOC: OUTP 09:17
PROVIDERS: PCP Internal Medicine Adolescent Medicine; Visit Provider Internal Medicine Gastroenterology
PROC: 0DJ08ZZ Inspection of Upper Intestinal Tract, Via Natural or Artificial Opening Endoscopic (ICD-10-PCS; CPT 43235; principal; 2021-03-26 10:30)
DX: K21.9 Gastro-esophageal reflux disease without esophagitis; K22.4 Dyskinesia of esophagus; K31.9 Disease of stomach and duodenum, unspecified; K58.1 Irritable bowel syndrome with constipation; K30 Functional dyspepsia; F41.9 Anxiety disorder, unspecified; E11.9 Type 2 diabetes mellitus without complications; G43.909 Migraine, unspecified, not intractable, without status migrainosus; R00.2 Palpitations; E03.9 Hypothyroidism, unspecified; Z90.49 Acquired absence of other specified parts of digestive tract; Z79.899 Other long term (current) drug therapy
CPT/HCPCS: 43239; J2704

== ENCOUNTER → 2021-06-29 12:58 | Outpatient (CLI) | payer OTHER, SELFPAY ==
[2021-06-29 21:41] LABS: Vitamin B12 395 pg/mL (239-931)
== END ==
PROVIDERS: Visit Provider Nurse Practitioner Family
DX: R42 Dizziness and giddiness (principal); E03.9 Hypothyroidism, unspecified
CPT/HCPCS: 36415; 82607

== ENCOUNTER → 2021-07-04 15:57 | Outpatient (CLI) | payer OTHER, SELFPAY | PROVIDERS: Visit Provider Nurse Practitioner Family | DX: Z01.84 Encounter for antibody response examination (principal); W57.XXXA Bitten or stung by nonvenomous insect and other nonvenomous arthropods, initial encounter | CPT/HCPCS: 36415; 86618 ==

== ENCOUNTER → 2021-07-17 07:17 | Outpatient (CLI) | payer OTHER, SELFPAY ==
--- NOTE | 2021-07-17 07:17 | CT_ITS ---
PROCEDURE: CT SINUS WO CON CLINICAL HISTORY: sinusitis COMPARISON: CT SINUS CT SINUS (MAX-FACIAL W/O CONT) from 07/30/2017 TECHNIQUE: Axial images obtained with sagittal and coronal reformats. All CT scans at the facility use one or more dose reduction, viz: automated exposure control, ma/kV adjustment per patient size (including targeted exams where dose is matched to indication, i.e. head), or iterative reconstruction technique. FINDINGS: No sinus air-fluid level or significant mucosal thickening. No polyps or masses. The ostiomeatal units are patent. No significant nasal septal deviation. TMJs have an unremarkable appearance. Unremarkable orbits. Artifact is present from the patient's dental work. IMPRESSION: Negative CT sinuses Dictated by: Delonte Murphy MD 07/17/2021 10:17 Delonte Murphy MD in [facility] 07/17/2021 10:17
== END ==
PROVIDERS: PCP Internal Medicine Adolescent Medicine; Visit Provider Otolaryngology
DX: J34.2 Deviated nasal septum (principal); J35.1 Hypertrophy of tonsils
CPT/HCPCS: 70486

== ENCOUNTER → 2021-08-22 08:02 | Outpatient (CLI) | payer OTHER, SELFPAY ==
[2021-08-22 08:04] VITALS: BMI 24.0
[2021-08-22 09:05] LABS: Influenza A, PCR Not Detected (NotDetected); Influenza B, PCR Not Detected (NotDetected)
[2021-08-22 09:55] LABS: Coronavirus 19, PCR Detected (NotDetected)
== END ==
PROVIDERS: PCP Internal Medicine Adolescent Medicine; Visit Provider Nurse Practitioner
DX: U07.1 COVID-19 (principal)
CPT/HCPCS: C9803; U0003; U0005

== ENCOUNTER → 2021-10-26 08:26 | Outpatient (CLI) | payer OTHER, SELFPAY | PROVIDERS: PCP Internal Medicine Adolescent Medicine; Visit Provider Nurse Practitioner Family | DX: R00.2 Palpitations (principal) | CPT/HCPCS: 93225 ==

== ENCOUNTER → 2021-11-15 13:47 | Outpatient (CLI) | payer OTHER, SELFPAY ==
[2021-11-15 15:14] LABS: Basophils # 0.1 K/mm3 (0-0.2); Eosinophils # 0.1 K/mm3 (0.0-0.4); Eosinophils % 1.2 % (0.1-12.0); Hematocrit 40.9 % (37.0-47.0); Lymphocytes # 2.8 K/mm3 (0.7-4.5); Lymphocytes % 34.5 % (10-50); Mean Corpuscular HGB Conc 31.8 g/dL (31.8-35.4); Mean Corpuscular Hemoglobin 30.8 pg (27.0-31.2); Mean Corpuscular Volume 96.6 fl (81-99); Mean Platelet Volume 8.2 fl (7.4-10.4); Monocytes # 0.4 K/mm3 (0.1-1.0); Monocytes % 5.1 % (1.7-9.3); Neutrophils # 4.7 K/mm3 (1.8-7.8); Neutrophils % 58.3 % (37.0-80.0); Platelet Count 374 K/mm3 (142-424); Red Blood Count 4.24 M/mm3 (4.20-5.40); Red Cell Distribution Width 13.3 % (11.5-17.5); White Blood Count 8.1 K/mm3 (4.8-10.8)
[2021-11-15 15:41] LABS: Amylase 76 U/L (30-110); Lipase 123 U/L (23-300)
[2021-11-15 15:42] LABS: Alanine Aminotransferase 20 U/L (12-78); Albumin Level 4.2 g/dl (3.5-5.0); Alkaline Phosphatase 69 U/L (38-126); Aspartate Amino Transferase 30 U/L (14-36); Bilirubin,Direct 0.1 mg/dl (0.0-0.4); Bilirubin,Indirect 0.4 mg/dL (0.0-0.9); Bilirubin,Total 0.5 mg/dl (0.2-1.3); Bilirubin,Unconjugated 0.4 mg/dL (0.0-1.1); Total Protein,Serum 6.6 g/dl (6.3-8.2)
[2021-11-15 15:53] LABS: Free T4 (Free Thyroxine) 1.12 ng/dl (0.78-2.19)
[2021-11-15 16:12] LABS: Thyroid Stimulating Hormone 1.57 uIU/mL (0.465-4.68)
== END ==
PROVIDERS: Internal Medicine; PCP Internal Medicine Adolescent Medicine; Visit Provider Nurse Practitioner Family
DX: R07.9 Chest pain, unspecified (principal); R00.2 Palpitations; R10.9 Unspecified abdominal pain
CPT/HCPCS: 36415; 80076; 82150; 83690; 84439; 84443; 85025

== ENCOUNTER 2021-12-26 16:00 | Outpatient (RCR) | payer OTHER, SELFPAY ==
--- NOTE | 2021-12-06 15:30 | HMH.PTOPWND ---
Rehab Outpt Wound Evaluation Rehab OP Wound Evaluation Start: 12/06/21 15:23 Freq: Status: Active Protocol: Document 12/06/21 15:23 ESTHER (Rec: 12/06/21 15:30 PHORNE [id number]) Electronically Signed By Roshan Rock, PT 12/06/21 15:23 Subjective/History History History Pt is 36 yowf who presents with increasing edema and, more notably, pain throughout the L lower leg for ~ 5 yrs overall and worse x ~ 1 yr. 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 No problems noted until she became with her 1st child and has had intermittent problems since that time with increaing pain. She reports pain now throughout the medial side of the R lowe leg. She also reports symptoms are significantly worse during her menstrual cycle. She has hx of x 2, CCY, and tubal ligation. Subjective Subjective Pain currently 4/10, at worst 10/10. Minimal tenderness to palpation noted on the site of the hemangioma. Increased calor noted at the hemangioma site as well. Lymphedema Eval Classification of Lymphedema Secondary Lymphedema Yes Other Lymphedema Cause Yes Stemmer's sign Stemmer's Sign no Stage of Lymphedema Lymphedema stages Stage 0 (subjective c/o heaviness and aching) Skin Changes Redness Yes Other Changes Yes Pain Scale Pain Scale (0-10) 10 Affected Extremities Areas Affected by Lymphedema/Edema Left Lower Extremity Manual Lymphatic Drainage Treatment Area MLD Treatment Area Left Lower Extremity Wound Problems/Impairments Impairments Problems/Impairmments Palpation Tenderness,Impaired Walking,Impaired Standing, Impaired Recreational Activities,Impaired Work Activities,Increased Edema, Lymphedema Present,Subjective
== END 2021-12-26 16:10 | disposition home or self-care (01) ==
LOC: PT 16:00
PROVIDERS: PCP Internal Medicine Adolescent Medicine; Visit Provider Nurse Practitioner Family
DX: I83.812 Varicose veins of left lower extremity with pain (principal)
CPT/HCPCS: 97140; 97163; 97760

== ENCOUNTER → 2022-02-06 15:16 | Outpatient (CLI) | payer OTHER, SELFPAY ==
--- NOTE | 2022-02-06 15:20 | US_ITS ---
FINAL REPORT CLINICAL HISTORY: lower left pelvic pain FINDINGS: Transvaginal sonographic images of the pelvis were obtained. The uterus measures 8.2 x 4.2 x 5.9 cm. The endometrium measures 4 mm, which is within normal limits. There are probable small endometrial calcifications. The right ovary measures 2.3 cm in length and left ovary measures 2.8 cm in length. Normal blood flow seen to the ovaries. Small follicles are present. There is no evidence of free fluid. IMPRESSION: No acute abnormality identified. Reviewed, Interpreted and Dictated by Jay Navarro III, MD Transcribed by Sofía Hoover Authenticated and [facility]
== END ==
PROVIDERS: PCP Internal Medicine Adolescent Medicine; Visit Provider Nurse Practitioner Obstetrics & Gynecology
DX: R10.2 Pelvic and perineal pain (principal)
CPT/HCPCS: 76830

== ENCOUNTER → 2022-04-03 08:12 | Outpatient (CLI) | payer OTHER, SELFPAY ==
[2022-04-03 10:34] LABS: Anion Gap 8.4 mEq/L (5-15); Blood Urea Nitrogen 9 mg/dl (7-17); Calcium 8.6 mg/dl (8.4-10.2); Carbon Dioxide 27 mmol/L (22.0-30.0); Chloride 108 mmol/L (98-107); Chol/HDL Ratio 2.9 (1-3.5); Cholesterol 137 mg/dl (140-200); Estimated Glomerular Filt Rate 96 ml/min (>60); GFR (African American) 116 ML/MIN (>60); Glucose 86 mg/dl (74-100); HDL Cholesterol 48 mg/dl (40-60); Potassium 4.4 mmoL/L (3.5-5.1); Sodium 139 mmol/L (136-145); Triglycerides 50 mg/dl (30-150); VLDL Cholesterol 10 mg/dL (0-40)
[2022-04-03 11:01] LABS: Hemoglobin A1C 5.4 % (4.0-6.0)
[2022-04-04 08:51] LABS: Direct LDL Cholesterol 78 mg/dL (100-129)
== END ==
PROVIDERS: PCP Internal Medicine Adolescent Medicine; Visit Provider Physician Assistant
DX: R42 Dizziness and giddiness (principal); R73.03 Prediabetes; Z82.49 Family history of ischemic heart disease and other diseases of the circulatory system
CPT/HCPCS: 36415; 80048; 80061; 83036

== ENCOUNTER → 2022-05-06 08:24 | Outpatient (CLI) | payer OTHER, SELFPAY ==
[2022-05-06 09:32] LABS: Alanine Aminotransferase 22 U/L (12-78); Alkaline Phosphatase 92 U/L (38-126); Amylase 72 U/L (30-110); Aspartate Amino Transferase 33 U/L (14-36); Bilirubin,Unconjugated 0.3 mg/dL (0.0-1.1); Gamma Glutamyl Transpeptidase 17 U/L (12-43); Lipase 85 U/L (23-300); Total Protein,Serum 6.6 g/dl (6.3-8.2)
[2022-05-06 09:33] LABS: Bilirubin,Total < 0.1 mg/dl (0.2-1.3)
[2022-05-06 10:14] LABS: Bilirubin,Direct 0.1 mg/dl (0.0-0.4)
== END ==
PROVIDERS: PCP Internal Medicine Adolescent Medicine; Visit Provider Internal Medicine
DX: R10.9 Unspecified abdominal pain (principal); K21.9 Gastro-esophageal reflux disease without esophagitis
CPT/HCPCS: 36415; 80076; 82150; 82977; 83690

== ENCOUNTER → 2022-05-07 08:20 | Outpatient (CLI) | payer OTHER, SELFPAY ==
--- NOTE | 2022-05-07 08:23 | CA_ITS ---
APPROVED REPORT EXAM: Comprehensive 2D, Doppler, and color-flow Echocardiogram Corporate Affairs Manager: Radha Brennan RVT Ht: 5 ft 3 in Wt: 139lbs BSA: 1.66 BP: 115/70 mmHg Indications: ABN EKG,GERD,CP 2D Dimensions LVOT 2.30 cm (M/F) 1.5-2.5 LA Volume 17.50 mL LA Volume Index 10.60 mL/m2 (M/F) 16-34 M-Mode Dimensions RVDd 2.24 cm (0.9-2.6) LA Diam 2.98 cm (1.9-4.0) LVDd 4.76 cm (3.5-5.7) Ao Diam 3.13 cm (2.0-3.7) LVDs 3.32 cm (3.5-5.7) IVSd 0.60 cm (0.6-1.1) PWd 0.77 cm (0.6-1.1) EF (Teich) 57.50% FS 30.30% EDV (Teich) 105.40 mL TAPSE 2.12 (<1.7) ESV (Teich) 44.80 mL LV Diastology E Decel Time 187.00 (160-240 msec) E/A Ratio 1.1 MED E' 11.60 (< 7 cm/sec) E'/MED E' Ratio 5.58 (>14) LAT E' 15.80 (<10 cm/sec) E/LAT E' Ratio 4.09 (>14) Aortic Valve AO Peak GR. 4.90 mmHg Mitral Valve MV E Max Josef. 65.00 (40-130 cm/s) MV A Velocity 60.00 (40-130 cm/s) E/A Ratio 1.07 MV Decel. Time 187.00 (160-240 ms) MV PHT 55.00 ms Pulmonary Valve PV Peak Velocity 74.00 (50-150 cm/s) Left Ventricle Left atrium is normal size left ventricle is normal size there is no concentric left ventricular hypertrophy, estimated ejection fraction 55% with no regional wall motion abnormality, diastolic parameters are within normal range. Right Ventricle Right atrium and right ventricle are normal size and contractility. Aortic Valve Aortic valve is grossly normal, there is no aortic stenosis or aortic insufficiency. Mitral Valve Mitral valve grossly normal, there is trace mitral regurgitation. Tricuspid Valve Tricuspid grossly normal, there is trace tricuspid regurgitation, tricuspid regurgitation jet velocity is inadequate for calculation of the right ventricular systolic pressure. Pulmonic Valve Pulmonic valve is poorly visualized. Great Vessels Aortic root is normal size. Inferior vena cava is normal size with normal inspiratory collapse. Pericardium No significant pericardial effusion noted. Conclusion 1. Normal left ventricular size, preserved left ventricular systolic function, estimated ejection fraction 55% with no regional wall motion abnormality, diastolic parameters are within normal range. 2. Trace mitral and tricuspid regurgitation. 3. No significant pericardial effusion noted. 4. Inferior vena cava is normal size with normal inspiratory collapse. Electronically signed by : Dakotah Berrios MD 05/07/2022 18:15:19
== END ==
PROVIDERS: PCP Internal Medicine Adolescent Medicine; Visit Provider Nurse Practitioner Family
DX: R06.02 Shortness of breath (principal); R07.9 Chest pain, unspecified; R94.31 Abnormal electrocardiogram [ECG] [EKG]
CPT/HCPCS: 93306

== ENCOUNTER → 2022-05-23 08:23 | Outpatient (CLI) | payer OTHER, SELFPAY ==
[2022-05-23 09:49] LABS: Free T4 (Free Thyroxine) 1.13 ng/dl (0.78-2.19)
[2022-05-23 10:04] LABS: Thyroid Stimulating Hormone 1.64 uIU/mL (0.465-4.68)
== END ==
PROVIDERS: PCP Internal Medicine Adolescent Medicine; Visit Provider Nurse Practitioner Family
DX: E03.9 Hypothyroidism, unspecified (principal)
CPT/HCPCS: 36415; 84439; 84443

== ENCOUNTER 2022-09-11 07:30 | Day surgery (SDC) | payer OTHER, SELFPAY ==
[2022-09-10 13:38] VITALS: BMI 25.0
[2022-09-11] VITALS (21 sets, daily range): BP systolic 128–154; BP diastolic 74–100; PULSE 63–105; RESP 16–18; TEMP 36.1–43; O2SAT 95–100
--- NOTE | 2022-09-11 07:54 | ECG_ITS ---
APPROVED REPORT Exam: Resting ECG HR:77 bpm ECG Measurements Heart Rate 77 AXES IN 162 P 80 QRSd 90 QRS 72 QT 388 T 64 QTc 419 Conclusion SINUS RHYTHM NORMAL ECG UNCONFIRMED REPORT Electronically signed by : Nolberto Benavidez MD 09/11/2022 17:36:54
[2022-09-11 08:01] LABS: Urine Pregnancy, HCG Qual. Negative (Negative)
[2022-09-11 08:02] LABS: Basophils # 0.1 K/mm3 (0-0.2); Basophils % 1.5 % (0.1-2.0); Eosinophils # 0.1 K/mm3 (0.0-0.4); Eosinophils % 1.9 % (0.1-12.0); Hematocrit 36.6 % (37.0-47.0); Lymphocytes # 2.3 K/mm3 (0.7-4.5); Lymphocytes % 37.2 % (10-50); Mean Corpuscular HGB Conc 32.7 g/dL (31.8-35.4); Mean Corpuscular Hemoglobin 29.5 pg (27.0-31.2); Mean Corpuscular Volume 90.3 fl (81-99); Mean Platelet Volume 7.9 fl (7.4-10.4); Monocytes # 0.3 K/mm3 (0.1-1.0); Monocytes % 5.3 % (1.7-9.3); Neutrophils # 3.3 K/mm3 (1.8-7.8); Neutrophils % 54.2 % (37.0-80.0); Platelet Count 389 K/mm3 (142-424); Red Blood Count 4.05 M/mm3 (4.20-5.40); Red Cell Distribution Width 13.2 % (11.5-17.5); White Blood Count 6.1 K/mm3 (4.8-10.8)
[2022-09-11 08:17] LABS: Alanine Aminotransferase 20 U/L (12-78); Albumin Level 4.1 g/dl (3.5-5.0); Albumin/Globulin Ratio 1.6 (1.1-1.8); Alkaline Phosphatase 70 U/L (38-126); Anion Gap 7.5 mEq/L (5-15); Aspartate Amino Transferase 27 U/L (14-36); Bilirubin,Total 0.4 mg/dl (0.2-1.3); Blood Urea Nitrogen 11 mg/dl (7-17); Calcium 8.3 mg/dl (8.4-10.2); Carbon Dioxide 26 mmol/L (22.0-30.0); Chloride 108 mmol/L (98-107); Creatinine Clearance Estimated 114 mL/min (50-200); Estimated Glomerular Filt Rate 96 ml/min (>60); GFR (African American) 116 ML/MIN (>60); Globulin 2.6 g/dL (1.3-3.2); Glucose 92 mg/dl (74-100); Potassium 3.5 mmoL/L (3.5-5.1); Sodium 138 mmol/L (136-145); Total Protein,Serum 6.7 g/dl (6.3-8.2)
--- NOTE | 2022-09-11 08:45 | P.PN_ITS ---
[facility] Disclaimer: The information contained in this section may have been updated after the patient was seen, as this information can be updated by other users. Medical History Cervicogenic headache Chronic GERD Enlarged tonsils Hypothyroidism Migraine Surgical History History of section History of cholecystectomy Family History Other Family history of hypertension Social History Smoking Status: Never smoker second hand exposure: No alcohol intake: current substance use type: denies use current occupational status: employed Travel in the last 8 weeks: None household members: spouse and family housing: house current occupation: [employer] current occupational exposures/hazards: No caffeine: Yes [employer] Anesthesia Checklist Patient Identification Patient Identification: Arm Band Structural Data Admitted From: Home Planned Operative Procedure/s: Tonsillectomy Consent for Planned Operative Procedure(s) Verified: Yes Verified Documents: Surgical Consent and History and Physical NPO Status Verified Time NPO: 00:00 Additional verifications Anesthesia Reactions: No Hx Blood Transfusions: No Blood Transfusion Reaction: No Airway Assessment C-Spine Mobility Assessed: Yes TMJ Mobility Assessed: Yes Dentition: Good Dentition Neurological Assessment Level of Consciousness: Awake and Alert Anesthesia Plan Anesthesia Risk discussed: Yes Anesthesia Plan: Verified ASA Class: II Anesthesia Type: General
--- NOTE | 2022-09-11 09:00 | P.OP_ITS ---
Date of procedure: 09/11/22 Pre-op Diagnosis:: Chronic tonsillitis Post-op Diagnosis:: Chronic tonsillitis Procedure performed:: Tonsillectomy Surgeon:: Marcos Singer MD INSTRUMENT ASSEMBLER:: Corey Briceño Anesthesia: GETEder Estimated blood loss (mL): 0 Operative findings:: Enlarged inflamed tonsils bilaterally Operative note:: The patient was brought to the operating room and after adequate general anesthesia the mouth was draped in usual sterile fashion and a McIvor mouthgag placed. Tonsillectomy was then performed in the plane defined by the tonsillar capsule and superior constrictor muscle and this was done with electrocautery to simultaneously dissected and cauterized and this was done bilaterally then the tonsillar fossa's were infiltrated with half percent Marcaine with epinephrine and the procedure concluded. All counts correct. Blood loss minimal patient was sent recovery in stable condition. Condition: stable Disposition: PACU Complications:: none
--- NOTE | 2022-09-11 09:18 | PC.NURSE ---
humidified oxygen per collar at 10L in place for comfort.
--- NOTE | 2022-09-11 09:39 | PC.NURSE ---
medicated with Zofran 4mg IV for C/o nausea/belly pain.
--- NOTE | 2022-09-11 09:58 | PC.NURSE ---
Notified Toshia Briceño CRNA of severe abdominal pain. Tomeka Sanchez RN came to bedside to assess.
--- NOTE | 2022-09-11 10:05 | SUR.PHASEI ---
Toshia Briceño BENCH MOLDER APPRENTICE instructed this RN to give the prn Toradol for abdominal pain. Morphine 2mg given as well for throat pain
--- NOTE | 2022-09-11 10:14 | SUR.PHASEI ---
Pt reporting abdominal pain decreased to 3 and throat pain down to 3.
--- NOTE | 2022-09-11 11:06 | SUR.PHASEII ---
Pt reports pain is better, rating 2/10. Wishes to rest a little longer before getting dressed. Mother and @ bedside. No needs voiced @ this time.
--- NOTE | 2022-09-11 14:07 | P.PNANES_ITS ---
[facility] Anesthesia Record Part I Anesthesia Record I Intake, IV Amount: 800 Estimated blood loss (mL): 5 Urine output (mL): 0 Blood Pressure: 145/88 SaO2: 95 Pulse Rate: 100 Respiratory Rate: 16 Temperature: 97 F Patient is:: Drowsy and Stable Stable to PACU at:: 09:05
--- NOTE | 2022-09-11 14:08 | EXP.ANES.II ---
[facility] Anesthesia Record Part II Anesthesia Record Part II Discharge Time: 10:18 Destination: Surgical Day Care (OP Surgery) PACU nurse assessment reviewed?: Yes Patient Condition:: Good Anesthesia Complications:: None Swallowing reflex intact?: Yes Cyanosis?: No Blood Pressure: 136/88 Pulse Rate: 83 Temperature: 98 F Mental Status: Alert & Oriented Pain level:: 4 (Pt c/o stomach pain rating 4/10 and throat pain 3/10) Nausea and/or vomitting:: None Intake, IV Amount: 0
== END 2022-09-11 12:45 | disposition home or self-care (01) ==
PROVIDERS: PCP Internal Medicine Adolescent Medicine; Visit Provider Otolaryngology
PROC: (CPT 42826; principal; 2022-09-11 09:00)
DX: J35.01 Chronic tonsillitis (principal); Z79.899 Other long term (current) drug therapy
CPT/HCPCS: 42826; 80053; 81025; 85025; 93005; J2405

== ENCOUNTER → 2023-03-12 09:24 | Outpatient (CLI) | payer OTHER, SELFPAY ==
--- NOTE | 2023-03-12 09:28 | CT_ITS ---
FINAL REPORT TECHNIQUE: Axial CT of the abdomen and pelvis, without and with IV contrast. This study was performed with techniques to keep radiation doses as low as reasonably achievable (ALARA). Individualized dose reduction techniques using automated exposure control or adjustment of mA and/or kV according to the patient's size were employed. CLINICAL HISTORY: Severe RLQP COMPARISON: 11/27/2018 FINDINGS: Abdomen: Lung bases are clear. Liver has an unremarkable CT appearance. The spleen, pancreas and adrenal glands are unremarkable. Patient is status post cholecystectomy. Precontrast imaging shows no renal stone disease. Postcontrast imaging of the kidneys shows no mass or obstruction. No bowel obstruction or fluid collection is seen. Pelvis: The appendix is normal. The uterus and ovaries are unremarkable. There is mild diffuse fecal impaction. Pelvic bowel loops are unremarkable. No fluid collection or adenopathy is seen. IMPRESSION: Mild diffuse fecal impaction without evidence of appendicitis or inflammatory process. Reviewed, Interpreted and Dictated by Pat Morales MD Transcribed by Sofía Hoover Authenticated and [facility]
== END ==
PROVIDERS: PCP Internal Medicine Adolescent Medicine; Visit Provider Nurse Practitioner Obstetrics & Gynecology
DX: R10.31 Right lower quadrant pain (principal)
CPT/HCPCS: 74178; Q9967

== ENCOUNTER → 2023-04-08 08:12 | Outpatient (CLI) | payer OTHER, SELFPAY ==
[2023-04-08 08:28] LABS: Basophils # 0.1 K/mm3 (0-0.2); Basophils % 0.9 % (0.1-2.0); Eosinophils # 0.1 K/mm3 (0.0-0.4); Eosinophils % 1.7 % (0.1-12.0); Hematocrit 36.9 % (37.0-47.0); Lymphocytes # 2.3 K/mm3 (0.7-4.5); Mean Corpuscular HGB Conc 32.5 g/dL (31.8-35.4); Mean Corpuscular Hemoglobin 28.6 pg (27.0-31.2); Mean Platelet Volume 8.2 fl (7.4-10.4); Monocytes # 0.4 K/mm3 (0.1-1.0); Monocytes % 5.7 % (1.7-9.3); Neutrophils # 4.2 K/mm3 (1.8-7.8); Neutrophils % 58.7 % (37.0-80.0); Platelet Count 366 K/mm3 (142-424); Red Blood Count 4.19 M/mm3 (4.20-5.40); Red Cell Distribution Width 14.3 % (11.5-17.5); White Blood Count 7.1 K/mm3 (4.8-10.8)
[2023-04-08 09:25] LABS: Chloride 107 mmol/L (98-107); Potassium 4.1 mmoL/L (3.5-5.1); Sodium 139 mmol/L (136-145)
[2023-04-08 09:27] LABS: Alanine Aminotransferase 16 U/L (12-78); Anion Gap 12.1 mEq/L (5-15); Aspartate Amino Transferase 23 U/L (14-36); Blood Urea Nitrogen 11 mg/dl (7-17); Carbon Dioxide 24 mmol/L (22.0-30.0); Estimated Glomerular Filt Rate 82 ml/min (>60); GFR (African American) 99 ML/MIN (>60)
[2023-04-08 09:28] LABS: Albumin Level 3.8 g/dl (3.5-5.0); Albumin/Globulin Ratio 1.5 (1.1-1.8); Alkaline Phosphatase 80 U/L (38-126); Bilirubin,Total 0.5 mg/dl (0.2-1.3); Calcium 9.2 mg/dl (8.4-10.2); Cholesterol 179 mg/dl (140-200); Globulin 2.6 g/dL (1.3-3.2); Glucose 81 mg/dl (74-100); Total Protein,Serum 6.4 g/dl (6.3-8.2); Triglycerides 89 mg/dl (30-150); VLDL Cholesterol 18 mg/dL (0-40)
[2023-04-08 09:44] LABS: Free T4 (Free Thyroxine) 1.41 ng/dl (0.78-2.19)
[2023-04-08 09:58] LABS: Thyroid Stimulating Hormone 1.59 uIU/mL (0.465-4.68)
[2023-04-08 12:15] LABS: Chol/HDL Ratio 3.3 (1-3.5); HDL Cholesterol 54 mg/dl (40-60)
[2023-04-09 10:15] LABS: Ferritin 6.39 ng/ml (6.24-137)
[2023-04-09 13:32] LABS: Vitamin B12 490 pg/mL (239-931)
[2023-04-09 13:33] LABS: Folate 8.44 ng/mL
== END ==
PROVIDERS: Internal Medicine Adolescent Medicine; PCP Nurse Practitioner Family; Visit Provider Nurse Practitioner Family
DX: Z00.00 Encounter for general adult medical examination without abnormal findings (principal); E03.9 Hypothyroidism, unspecified
CPT/HCPCS: 36415; 80053; 80061; 82607; 82728; 82746; 84439; 84443; 85025

== ENCOUNTER → 2023-04-17 16:13 | Outpatient (CLI) | payer OTHER, SELFPAY ==
--- NOTE | 2023-04-17 16:20 | MR_ITS ---
PROCEDURE INFORMATION: Exam: MR Cervical Spine Without Contrast Exam date and time: 04/17/2023 4:14 PM Age: 37 years old Clinical indication: Radicular pain (radiculopathy); Cervical region; Additional info: Cervical radiculopathy. Pain down right arm with tingling and numbness TECHNIQUE: Imaging protocol: Magnetic resonance imaging of the cervical spine without contrast. COMPARISON: MR CERVICAL SPINE WO CON 10/12/2019 4:14 PM FINDINGS: Patient motion. Non-specific straightening. Vertebral body height and AP alignment is preserved. Disc desiccation. Negative for discitis/osteomyelitis. No epidural fluid collection. No pathologic cord signal or cord expansion. C2-C3: No significant central or foraminal stenosis. C3-C4: No significant central or foraminal stenosis. C4-C5: Minimal disc osteophyte complex without central or foraminal stenosis. C5-C6: Mild disc bulge with annular tear. No significant central or foraminal stenosis. C6-C7: No central or foraminal stenosis. C7-T1: No central or foraminal stenosis. IMPRESSION: 1. No acute abnormality involving the cervical spine. 2. No significant central or foraminal compromise throughout.
== END ==
PROVIDERS: PCP Nurse Practitioner Family; Visit Provider Nurse Practitioner Family
DX: M54.12 Radiculopathy, cervical region (principal)
CPT/HCPCS: 72141; 76376

== ENCOUNTER 2023-05-07 15:30 | Outpatient (RCR) | payer OTHER, SELFPAY | END 2023-05-07 15:35 | disposition home or self-care (01) | LOC: PT 15:30 | PROVIDERS: PCP Nurse Practitioner Family; Visit Provider Nurse Practitioner Family | DX: M54.12 Radiculopathy, cervical region (principal) | CPT/HCPCS: 20561; 97010; 97012; 97014; 97163; G0283 ==

== ENCOUNTER → 2023-08-15 09:46 | Outpatient (CLI) | payer OTHER, SELFPAY ==
--- NOTE | 2023-08-15 09:47 | US_ITS ---
PROCEDURE INFORMATION: Exam: US Right Breast, Complete Exam date and time: 08/15/2023 10:26 AM Age: 37 years old Clinical indication: Mass, lump, or swelling; Right; Additional info: Fibrocystic breast changes TECHNIQUE: Imaging protocol: Complete ultrasound of all four quadrants of the right breast and the retroareolar regions, including ultrasound of the axilla when performed. COMPARISON: US BREAST RT COMPLETE 01/19/2020 12:00 PM FINDINGS: Breast: No solid or cystic lesions. Other findings: Ultrasonographic images of the soft tissues in questions/palpable abnormality. No mass or fluid collection visualized. Lymph node in the right axillary region of approximately 1.8 cm. Fatty nidus. Intact cortex. Smaller lymph node of approximately 1.2 cm. IMPRESSION: Ultrasonographic images of the soft tissues in questions/palpable abnormality. No mass or fluid collection visualized. ASSESSMENT: Likely benign.
== END ==
LOC: RAD 09:47
PROVIDERS: PCP Nurse Practitioner Family; Visit Provider Nurse Practitioner Obstetrics & Gynecology
DX: N60.11 Diffuse cystic mastopathy of right breast (principal)
CPT/HCPCS: 76641

== ENCOUNTER 2024-03-04 07:53 | Outpatient (CLI) | payer OTHER, SELFPAY ==
[2024-03-04 08:20] LABS: Basophils # 0.1 K/mm3 (0-0.2); Basophils % 0.9 % (0.1-2.0); Eosinophils # 0.1 K/mm3 (0.0-0.4); Eosinophils % 1.9 % (0.1-12.0); Hematocrit 35.7 % (37.0-47.0); Hemoglobin 11.2 g/dL (12.2-16.2); Lymphocytes # 2.2 K/mm3 (0.7-4.5); Lymphocytes % 32.2 % (10-50); Mean Corpuscular HGB Conc 31.4 g/dL (31.8-35.4); Mean Corpuscular Hemoglobin 27.8 pg (27.0-31.2); Mean Corpuscular Volume 88.6 fl (81-99); Mean Platelet Volume 7.7 fl (7.4-10.4); Monocytes # 0.4 K/mm3 (0.1-1.0); Monocytes % 5.8 % (1.7-9.3); Neutrophils % 59.2 % (37.0-80.0); Platelet Count 366 K/mm3 (142-424); Red Blood Count 4.02 M/mm3 (4.20-5.40); Red Cell Distribution Width 15.5 % (11.5-17.5); White Blood Count 6.7 K/mm3 (4.8-10.8)
[2024-03-04 11:09] LABS: Alanine Aminotransferase 13 U/L (12-78); Albumin Level 3.7 g/dl (3.5-5.0); Alkaline Phosphatase 72 U/L (38-126); Aspartate Amino Transferase 26 U/L (14-36); Bilirubin,Indirect 0.4 mg/dL (0.0-0.9); Bilirubin,Total 0.4 mg/dl (0.2-1.3); Bilirubin,Unconjugated 0.5 mg/dL (0.0-1.1); Blood Urea Nitrogen 9 mg/dl (7-17); Calcium 8.9 mg/dl (8.4-10.2); Carbon Dioxide 26 mmol/L (22.0-30.0); Chloride 109 mmol/L (98-107); Chol/HDL Ratio 3.6 (1-3.5); Cholesterol 165 mg/dl (140-200); Estimated Glomerular Filt Rate 95 ml/min (>60); GFR (African American) 115 ML/MIN (>60); Glucose 82 mg/dl (74-100); HDL Cholesterol 46 mg/dl (40-60); Sodium 139 mmol/L (136-145); Total Protein,Serum 6.2 g/dl (6.3-8.2); Triglycerides 109 mg/dl (30-150); VLDL Cholesterol 22 mg/dL (0-40)
[2024-03-04 11:20] LABS: Direct LDL Cholesterol 90.86 mg/dL (100-129)
[2024-03-04 11:39] LABS: Thyroid Stimulating Hormone 2.39 uIU/mL (0.465-4.68)
[2024-03-04 12:53] LABS: Free T4 (Free Thyroxine) 1.12 ng/dl (0.78-2.19)
[2024-03-04 14:03] LABS: Iron 56 ug/dL (37-170)
[2024-03-04 14:12] LABS: Total Iron Binding Capacity 329 ug/dL (265-497)
[2024-03-04 14:13] LABS: Reticulocyte % (Auto) 0.8 % (0.9-3.2)
[2024-03-04 14:40] LABS: Ferritin 6.42 ng/ml (6.24-137)
[2024-03-04 18:39] LABS: Vitamin B12 392 pg/mL (239-931)
[2024-03-06 10:23] LABS: Transferrin 276 mg/dL (192-364)
== END 2024-03-04 23:59 | disposition home or self-care (01) ==
LOC: LAB 07:53
PROVIDERS: PCP Internal Medicine Adolescent Medicine; Visit Provider Nurse Practitioner Family
DX: E03.9 Hypothyroidism, unspecified (principal); G43.709 Chronic migraine without aura, not intractable, without status migrainosus; D64.9 Anemia, unspecified
CPT/HCPCS: 36415; 80048; 80061; 80076; 82533; 82607; 82728; 82746; 83540; 83550; 84439; 84443; 84466; 85025; 85044

== ENCOUNTER 2024-04-06 08:03 | Outpatient (CLI) | payer OTHER, SELFPAY ==
[2024-04-07 14:09] LABS: Estradiol 95.8 pg/mL (.); FSH 6.1 mIU/mL (.); LH 8.4 mIU/mL (.)
== END 2024-04-06 23:59 | disposition home or self-care (01) ==
LOC: LAB 08:03
PROVIDERS: PCP Internal Medicine Adolescent Medicine; Visit Provider Nurse Practitioner Obstetrics & Gynecology
DX: N92.0 Excessive and frequent menstruation with regular cycle (principal); N94.3 Premenstrual tension syndrome
CPT/HCPCS: 36415; 82670; 83001; 83002

== ENCOUNTER 2024-04-06 08:13 | Outpatient (CLI) | payer OTHER, SELFPAY ==
--- NOTE | 2024-04-06 08:13 | US_ITS ---
PROCEDURE: US TRANSVAGINAL CLINICAL INDICATION: thickened endometrium COMPARISON: US US TRANSVAGINAL from 02/06/[address] ABDOMEN PELVIS WO/W CON from 03/12/2023 FINDINGS: Transvaginal sonographic images of the pelvis were obtained. UTERUS: 8.7 cm x 5cmx 4.5cm anteverted with a combined endometrial thickness of 6.2mm. A scar is seen. LEFT OVARY: [id number] with a volume of 2.4ml. There is a follicle measuring 1.7 cm x 1.2 cm x 1.3 cm. RIGHT OVARY: 4.4cmx 4.2cm. There is a resolving hemorrhagic cyst in the right ovary measuring 4.2 cm x 2.7 cm x 4.3 cm. It has the typical lacy appearance. There is a trace amount of fluid adjacent to the right ovary. Both ovaries are seen . Doppler flow to both ovaries are seen. There is no fluid in the cul-de-sac. IMPRESSION: 1. Anteverted uterus normal in shape and size. The endometrium is normal and 6.2 mm. 2. Left ovary is seen and appears normal. There is a follicle measuring 1.7 cm. 3. The right ovary contains a hemorrhagic cyst measuring 4.3 cm. 4. No fluid in the cul-de-sac. Dictated by: Khalif Gil MD 04/06/2024 11:36 Khalif Gil MD in OV 04/06/2024 11:36
== END 2024-04-06 23:59 | disposition home or self-care (01) ==
LOC: RAD 08:13
PROVIDERS: PCP Internal Medicine Adolescent Medicine; Visit Provider Nurse Practitioner Obstetrics & Gynecology
DX: R93.89 Abnormal findings on diagnostic imaging of other specified body structures (principal)
CPT/HCPCS: 76830

== ENCOUNTER 2024-07-19 08:59 | Outpatient (CLI) | payer OTHER, SELFPAY ==
--- NOTE | 2024-07-19 09:02 | XR_ITS ---
FINAL REPORT CLINICAL HISTORY: ankle injury, fell Friday, medial malleolus pain COMPARISON: None FINDINGS: RIGHT ANKLE 3 views of the right ankle were obtained. There is no acute fracture or dislocation. The mortise is intact. Visualized joint spaces are normally aligned. Lateral soft tissue swelling is noted. IMPRESSION: Soft tissue swelling without acute bony abnormality. Reviewed, Interpreted and Dictated by Jay Navarro III, MD Transcribed by China Burch Authenticated and . [facility]
--- NOTE | 2024-07-19 09:02 | XR_ITS ---
FINAL REPORT CLINICAL HISTORY: foot injury, fell Friday, medial malleolus pain COMPARISON: None FINDINGS: RIGHT FOOT 3 views of the right foot were obtained. There is no acute fracture or dislocation. There is mild hallux valgus deformity. The joint spaces are otherwise preserved. Soft tissues are unremarkable. IMPRESSION: No acute bony abnormality. Reviewed, Interpreted and Dictated by Jay Navarro III, MD Transcribed by China Burch Authenticated and [facility]
== END 2024-07-19 23:59 | disposition home or self-care (01) ==
LOC: RAD 09:00
PROVIDERS: PCP Internal Medicine Adolescent Medicine; Visit Provider Nurse Practitioner
DX: M25.571 Pain in right ankle and joints of right foot (principal); M79.671 Pain in right foot
CPT/HCPCS: 73610; 73630

== ENCOUNTER 2024-08-09 10:04 | Outpatient (CLI) | payer OTHER, SELFPAY ==
--- NOTE | 2024-08-09 10:04 | XR_ITS ---
FINAL REPORT CLINICAL HISTORY: Ankle fracture; f/u FINDINGS: Right ankle Comparison: 07/19/2024 THREE VIEW FINDINGS: Three views show no evidence of an acute, displaced fracture or dislocation of the visualized bony architecture. The joint spaces appear normal. IMPRESSION: Unremarkable exam. Authenticated and [facility]
--- NOTE | 2024-08-09 10:04 | US_ITS ---
PROCEDURE: US TRANSVAGINAL CLINICAL INDICATION: 3 month f/u on ovarian cysts COMPARISON: US US TRANSVAGINAL from 04/06/2024 FINDINGS: Transvaginal sonographic images of the pelvis were obtained. UTERUS: 8.2cm x 5.4cmx 4.3cm anteverted with a combined endometrial thickness of 7.7mm. A scar is seen. There is a defect in the myometrium underneath the scar. There is a trace of fluid in the cervix. LEFT OVARY: 2.6 cmx1.9 cmx1.7cm with a volume of 4.2ml. There is a follicle measuring 1.1 cm x 0.8 cm x 0.8 cm. RIGHT OVARY: 2.1cmx 1.0cmx1.0cm with a volume of 1.1ml. There is a follicle measuring 1.0 cm x 0.5 cm x 0.7 cm. The previously described hemorrhagic cyst has completely resolved. Both ovaries are seen and appear normal. Doppler flow to both ovaries are seen. There is no fluid in the cul-de-sac. IMPRESSION: 1. Anteverted uterus normal in shape and size. 2. Both ovaries are seen and appear normal. Each ovary has a small follicle. The previously described right ovarian hemorrhagic cyst has now completely resolved. 3. No fluid in the cul-de-sac. Dictated by: Khalif Gil MD 08/10/2024 07:46 Khalif Gil MD in OV 08/10/2024 07:46
== END 2024-08-09 23:59 | disposition home or self-care (01) ==
LOC: RAD 10:04
PROVIDERS: PCP Internal Medicine Adolescent Medicine; Visit Provider Nurse Practitioner Obstetrics & Gynecology
DX: S99.921A Unspecified injury of right foot, initial encounter (principal); S93.401A Sprain of unspecified ligament of right ankle, initial encounter; N83.209 Unspecified ovarian cyst, unspecified side
CPT/HCPCS: 73610; 76830

== ENCOUNTER 2024-09-04 08:00 | Emergency (ER) | payer OTHER, SELFPAY ==
[2024-09-04 08:05] VITALS: BP 126/89; PULSE 83; RESP 18; TEMP 37.1; O2SAT 98; BMI 27.3
--- NOTE | 2024-09-04 08:13 | ED_ITS ---
Discharge Plan Disposition Patient Disposition: Home, Self-Care Condition: Good Prescriptions Prescriptions: No Action bupropion HCl 150 mg tablet extended release 24 hr 150 mg PO DAILY ondansetron 4 mg tablet,disintegrating 4 mg PO PRN Patient Comments: DISSOLVE ONE TABLET in MOUTH EVERY 6 HOURS NEEDED FOR NAUSEA AND VOMITING levothyroxine [Synthroid] 50 mcg tablet 50 mcg PO DAILY galcanezumab-gnlm 120 mg/mL pen injector 120 mg SQ QMONTH Qty: 1 11RF buspirone 5 mg tablet 5 mg PO DAILY Patient Comments: TAKE ONE TABLET BY MOUTH EVERY DAY Rx Instructions: 1 p.o. nightly famotidine 40 mg tablet 40 mg PO BID Qty: 180 3RF fluticasone propionate [Flonase Allergy Relief] 50 mcg/actuation spray,suspension 1 spray intranasal DAILY PRN (Reason: allergy symptoms) Qty: 16 5RF Rx Instructions: administer into each nostril cyclobenzaprine 10 mg tablet 10 mg PO Q8H Qty: 90 0RF omeprazole 40 mg capsule,delayed release(DR/EC) 40 mg PO BID Qty: 180 3RF fluconazole 150 mg tablet 150 mg PO Q3D Qty: 2 1RF Rx Instructions: may repeat second dose 72 hrs after first dose if symptoms persist levocetirizine 5 mg tablet 5 mg PO DAILY Referrals Follow up/Referrals: Nolberto Benavidez MD [Primary Care Provider] - See instructions Activity Restrictions/Add. Instructions Additional Instructions/Restrictions: Take Tylenol/Ibuprofen for pain/fever. Gargle with salt water or use throat lozenges to alleviate sore throat symptoms. If symptoms persist/worsen then return to clinic/PCP. Clinical Impressions Clinical Impression: Pharyngitis Qualifiers: Pharyngitis/tonsillitis etiology: unspecified etiology Qualified Code(s): J02.9 - Acute pharyngitis, unspecified Instructions Patient Instructions: DI for Viral Pharyngitis Print Language Print Language: [place]an Discharge ED Provider: Karin German [facility] General Stated complaint: sore throat Time Seen by Provider: 09/04/24 08:12 History of Present Illness Provider Complaint: Pt reports that she often has strep and has had her tonsils removed, but continues to get strep often. She reports that she awoke at 6 am and had a terrible sore throat. She denies any cough or sinus drainage. Related Data Home Medications ?Medication ?Instructions ?Recorded ?Confirmed levothyroxine 50 mcg tablet 50 mcg PO DAILY THYROID 11/10/17 08/09/24 (Synthroid) buspirone 5 mg tablet 5 mg PO DAILY 05/05/24 08/09/24 bupropion HCl 150 mg 24 hr tablet, 150 mg PO DAILY 09/04/24 09/04/24 extended release galcanezumab-gnlm 120 mg/mL 120 mg SQ MONTHLY 09/04/24 09/04/24 subcutaneous pen injector (Emgality Pen) Previous Rx's ?Medication ?Instructions ?Recorded famotidine 40 mg tablet 40 mg PO BID GERD #180 tabs 01/24/22 omeprazole 40 mg capsule,delayed 40 mg PO BID GERD #180 caps 02/13/24 release Allergies Allergy/AdvReac Type Severity Reaction Status Date / Time amoxicillin (AMOXICILLIN) Allergy Unknown I-RASH Verified 08/09/24 10:44 [facility] Disclaimer: The information contained in this section may have been updated after the patient was seen, as this information can be updated by other users. 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 exposures/hazards: No caffeine: Yes Have you lived/traveled outside US in past 30 days?: No Contact w/someone who lives/traveled outside US past 30 days?: No Exposure to someone with infectious disease in past 14 days?: No Do you have a fever (greater than 100.4 F or 38 C)?: No Have you tested positive for COVID-19: No Exposed to someone with COVID-19 in past 14 days?: No Do you have a sore throat?: Yes Do you have a cough?: No Do you have any weakness?: No Do you have any diarrhea?: No Are you experiencing any unusual bleeding?: No Do you have any muscle aches/pain?: No Do you have any abdominal pain?: No Are you experiencing loss of taste or smell?: No ROS Obtained: Yes All systems reviewed & no additional complaints except as documented Constitutional Constitutional: Reports system reviewed and no additional complaints, except as documented Eyes Eyes: Reports system reviewed and no additional complaints, except as documented ENT Ears, Nose, Mouth, and Throat: Reports system reviewed and no additional complaints, except as documented, Reports odynophagia and Reports sore throat Cardiovascular Cardiovascular: Reports system reviewed and no additional complaints, except as documented Respiratory Respiratory: Reports system reviewed and no additional complaints, except as documented Gastrointestinal Gastrointestingal: Reports system reviewed and no additional complaints, except as documented and odynophagia Genitourinary Female Genitourinary: Reports system reviewed and no additional complaints, except as documented Musculoskeletal Musculoskeletal: Reports system reviewed and no additional complaints, except as documented Integumentary/Breasts Skin/Breast: Reports system reviewed and no additional complaints, except as documented Neurologic Neurologic: Reports system reviewed and no additional complaints, except as documented Endocrine Endocrine: Reports system reviewed and no additional complaints, except as docum ented Hematologic/Lymphatic Henatologic/Lymphatic: Reports system reviewed and no additional complaints, except as documented Allergic/Immunologic Allergic/Immunologic: Reports system reviewed and no additional complaints, except as documented Physical Exam General General appearance: alert and in no apparent distress Head Head exam: atraumatic and normocephalic Eye Eye exam: Present normal appearance Expanded ENT Exam External ear exam: Present normal external inspection Nose exam: Absent sinus tenderness Nasal speculum exam: Bilateral: normal Mouth exam: Present normal external inspection Teeth exam: Present normal inspection Throat exam: Present normal inspection Comment: Tonsils absent Neck Neck exam: Present normal inspection; Absent lymphadenopathy Chest Chest inspection: Present normal inspection and symmetric chest wall rise Respiratory Respiratory exam: Present normal lung sounds bilaterally Cardiovascular Cardiovascular exam: Present regular rate and normal rhythm Abdominal Exam Abdominal exam: Present soft and normal bowel sounds Extremities Exam Extremities exam: Present normal inspection Back Exam Back exam: Present normal inspection Neurological Exam Neurological exam: Present alert and oriented X3 Psychiatric Psychiatric exam: Present normal affect and normal mood Skin Skin exam: Present warm, dry and intact Lymphatic Lymphatic Findings: no adenopathy Medical Decision Making Medical Records Screening: Per USPSTF and CDC recommendations, given the prevalence of disease in our region, it is our hospital?s policy to screen for HIV and viral Hepatitis for all patients aged 18 and over and those with ongoing risk factors. Elio Inquiry Pt receiving controlled substance: No Elio was queried for this patient: No
[2024-09-04 08:22] LABS: UTC Strep Screen (Rapid) Negative (Negative)
[2024-09-04 08:26] VITALS: BP 126/89; PULSE 83; RESP 18; TEMP 37.1; O2SAT 98
== END 2024-09-04 08:28 | disposition home or self-care (01) ==
PROVIDERS: Emergency Provider Nurse Practitioner Family; PCP Internal Medicine Adolescent Medicine
DX: J02.9 Acute pharyngitis, unspecified (principal)
CPT/HCPCS: 87880; 99213; G0381

== ENCOUNTER 2024-09-29 08:16 | Outpatient (CLI) | payer OTHER, SELFPAY ==
[2024-09-29 09:19] LABS: Basophils # 0.1 K/mm3 (0-0.2); Basophils % 0.9 % (0.1-2.0); Eosinophils # 0.1 K/mm3 (0.0-0.4); Eosinophils % 1.5 % (0.1-12.0); Hematocrit 36.7 % (37.0-47.0); Hemoglobin 11.5 g/dL (12.2-16.2); Lymphocytes # 2.3 K/mm3 (0.7-4.5); Lymphocytes % 27.7 % (10-50); Mean Corpuscular HGB Conc 31.3 g/dL (31.8-35.4); Mean Corpuscular Hemoglobin 27.2 pg (27.0-31.2); Mean Corpuscular Volume 86.8 fl (81-99); Mean Platelet Volume 8.8 fl (7.4-10.4); Monocytes # 0.5 K/mm3 (0.1-1.0); Monocytes % 6.2 % (1.7-9.3); Neutrophils # 5.1 K/mm3 (1.8-7.8); Neutrophils % 63.3 % (37.0-80.0); Platelet Count 365 K/mm3 (142-424); Red Blood Count 4.23 M/mm3 (4.20-5.40); Red Cell Distribution Width 14.3 % (11.5-17.5); White Blood Count 8.1 K/mm3 (4.8-10.8)
[2024-09-29 09:40] LABS: Albumin Level 4.4 g/dl (3.5-5.0); Chloride 106 mmol/L (98-107); Sodium 139 mmol/L (136-145)
[2024-09-29 10:00] LABS: Free T4 (Free Thyroxine) 1.17 ng/dl (0.78-2.19)
[2024-09-29 10:14] LABS: Thyroid Stimulating Hormone 1.77 uIU/mL (0.465-4.68)
[2024-09-29 10:15] LABS: Erythrocyte Sedimentation Rate 11 mm/hr (0-20)
[2024-09-29 11:09] LABS: Alanine Aminotransferase 21 U/L (12-78); Albumin/Globulin Ratio 1.6 (1.1-1.8); Alkaline Phosphatase 76 U/L (38-126); Aspartate Amino Transferase 31 U/L (14-36); Bilirubin,Total 0.5 mg/dl (0.2-1.3); Blood Urea Nitrogen 6 mg/dl (7-17); Calcium 9.1 mg/dl (8.4-10.2); Carbon Dioxide 24 mmol/L (22.0-30.0); Estimated Glomerular Filt Rate 94 ml/min (>60); GFR (African American) 114 ML/MIN (>60); Globulin 2.7 g/dL (1.3-3.2); Glucose 82 mg/dl (74-100); Total Protein,Serum 7.1 g/dl (6.3-8.2); Uric Acid 3.9 mg/dl (2.5-6.2)
[2024-09-29 11:16] LABS: C-Reactive Protein 1.7 mg/L (0-4)
[2024-09-29 11:28] LABS: 25-OH Vitamin D, Total 39.9 ng/mL (30-100)
[2024-09-29 11:50] LABS: Strep Scrn Group A (Rapid) Negative (Negative)
[2024-09-29 12:01] LABS: Vitamin B12 517 pg/mL (239-931)
[2024-09-30 07:11] LABS: RA Latex Turbid. 10.4 IU/mL (<14.0)
[2024-09-30 15:01] LABS: Anti-CCP Abs,IgG and IgA (RDL) 6 Units
[2024-09-30 15:15] LABS: Antinuclear Antibodies, IFA Negative (.)
== END 2024-09-29 23:59 | disposition home or self-care (01) ==
LOC: LAB 08:17
PROVIDERS: PCP Nurse Practitioner Family; Visit Provider Nurse Practitioner Family
DX: J31.2 Chronic pharyngitis (principal); M25.50 Pain in unspecified joint; Z68.28 Body mass index [BMI] 28.0-28.9, adult; E66.3 Overweight
CPT/HCPCS: 36415; 80053; 82306; 82607; 84439; 84443; 84550; 85025; 85651; 86038; 86140; 86200; 86431; 87070; 87430

== ENCOUNTER 2024-10-22 07:01 | Outpatient (CLI) | payer OTHER, SELFPAY ==
--- NOTE | 2024-10-22 07:02 | CT_ITS ---
FINAL REPORT TECHNIQUE: Thin section axial CT with coronal reconstruction without IV contrast This study was performed with techniques to keep radiation doses as low as reasonably achievable, (ALARA). Individualized dose reduction techniques using automated exposure control or adjustment of mA and/or kV according to the patient's size were employed. CLINICAL HISTORY: recurrent strep with out tonsils COMPARISON: 07/17/2021 FINDINGS: CT SINUSES: The sinuses are clear. No air-fluid levels or significant mucoperiosteal thickening is noted. There is 2 mm of left septal deviation. No significant adenoidal enlargement is present. The tonsillar pillars are unremarkable. IMPRESSION: Unremarkable paranasal sinuses. Reviewed, Interpreted and Dictated by Pat Morales MD Transcribed by Nat Triplett Authenticated and [facility]
== END 2024-10-22 23:59 | disposition home or self-care (01) ==
LOC: RAD 07:02
PROVIDERS: PCP Nurse Practitioner Family; Visit Provider Otolaryngology
DX: J02.0 Streptococcal pharyngitis (principal)
CPT/HCPCS: 70486

== ENCOUNTER 2024-12-21 11:31 | Outpatient (CLI) | payer OTHER, SELFPAY ==
[2024-12-21 12:04] VITALS: BMI 26.5
[2024-12-21 12:17] LABS: Basophils # 0.1 K/mm3 (0-0.2); Eosinophils # 0.1 Kmm3 (0.0-0.4); Eosinophils % 1.1 % (0.1-12.0); Hematocrit 34.6 % (37.0-47.0); Immature Granulocytes # 0.01 10^3uL; Immature Granulocytes % 0.2 %; Lymphocytes # 2.6 K/mm3 (0.7-4.5); Lymphocytes % 41.6 % (10-50); Mean Corpuscular HGB Conc 31.8 g/dL (31.8-35.4); Mean Corpuscular Hemoglobin 27.1 pg (27.0-31.2); Mean Corpuscular Volume 85.2 fl (81-99); Mean Platelet Volume 8.7 fl (7.4-10.4); Monocytes # 0.5 K/mm3 (0.1-1.0); Monocytes % 7.9 % (1.7-9.3); Neutrophils % 48.2 % (37.0-80.0); Nucleated Red Blood Cells # 0 10^3/uL; Nucleated Red Blood Cells % 0 %; Platelet Count 323 K/mm3 (142-424); Red Blood Count 4.06 M/mm3 (4.20-5.40); Red Cell Distribution Width-SD 43.8 fL; White Blood Count 6.2 K/mm3 (4.8-10.8)
[2024-12-21 12:25] LABS: Albumin Level 4.5 g/dl (3.5-5.0); Chloride 110 mmol/L (98-107); Sodium 139 mmol/L (136-145)
[2024-12-21 12:28] LABS: Alanine Aminotransferase 13 U/L (12-78); Albumin/Globulin Ratio 1.6 (1.1-1.8); Alkaline Phosphatase 65 U/L (38-126); Aspartate Amino Transferase 24 U/L (14-36); Bilirubin,Total 0.4 mg/dl (0.2-1.3); Blood Urea Nitrogen 10 mg/dl (7-17); Carbon Dioxide 24 mmol/L (22.0-30.0); Creatinine Clearance Estimated 103 mL/min (50-200); Estimated Glomerular Filt Rate 81 ml/min (>60); GFR (African American) 98 ML/MIN (>60); Globulin 2.8 g/dL (1.3-3.2); Total Protein,Serum 7.3 g/dl (6.3-8.2)
[2024-12-21 12:29] LABS: Calcium 8.9 mg/dl (8.4-10.2); Glucose 83 mg/dl (74-100)
[2024-12-21 13:00] LABS: HCG Qualitative, Serum Negative (Negative)
== END 2024-12-21 23:59 | disposition home or self-care (01) ==
LOC: PREOP 11:32
PROVIDERS: PCP Internal Medicine Adolescent Medicine; Visit Provider Nurse Practitioner Obstetrics & Gynecology
DX: Z01.812 Encounter for preprocedural laboratory examination (principal)
CPT/HCPCS: 80053; 84703; 85025

== ENCOUNTER 2024-12-27 07:29 | Day surgery (SDC) | payer OTHER, SELFPAY ==
[2024-12-21 14:02] VITALS: BMI 26.5
[2024-12-27] VITALS (11 sets, daily range): BP systolic 119–148; BP diastolic 78–108; PULSE 65–79; RESP 14–18; TEMP 36–36.6; O2SAT 98–100
[2024-12-27] MEDS: LACTATED RINGERS 1000ML 1,000 ML 25 ML IV (08:29)
--- NOTE | 2024-12-27 08:57 | P.PNANES_ITS ---
[facility] Disclaimer: The information contained in this section may have been updated after the patient was seen, as this information can be updated by other users. Medical History Recurrent streptococcal pharyngitis Anemia Acne vulgaris Acne Enlarged tonsils Hypothyroidism Chronic GERD Cervicogenic headache Migraine Surgical History History of salpingectomy Status post tonsillectomy History of section History of cholecystectomy Family History Other Family history of coronary artery disease Family history of hypertension Social History (Updated 12/27/24 @ 08:17 by Dafne Tran RN) Smoking Status: Never smoker second hand exposure: No alcohol intake: never substance use type: denies use current occupational status: employed Travel in the last 8 weeks?: Inside the [place] household members: spouse and family housing: house 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 exposures/hazards: No caffeine: Yes Have you lived/traveled outside US in past 30 days?: No Contact w/someone who lives/traveled outside US past 30 days?: No Exposure to someone with infectious disease in past 14 days?: No Do you have a fever (greater than 100.4 F or 38 C)?: No Have you tested positive for COVID-19?: No Exposed to someone with COVID-19 in past 14 days?: No Do you have a sore throat?: No Do you have a cough?: No Do you have any weakness?: No Are you experiencing any nausea/vomitting?: No Do you have any diarrhea?: No Are you experiencing any unusual bleeding?: No Do you have any muscle aches/pain?: No Do you have any abdominal pain?: No Are you experiencing loss of taste or smell?: No [facility] Anesthesia Checklist Patient Identification Patient Identification: Arm Band Structural Data Admitted From: Home Planned Operative Procedure/s: Hysteroscopy, D&C, Novasure Ablation Consent for Planned Operative Procedure(s) Verified: Yes Verified Documents: Surgical Consent and History and Physical NPO Status Verified Time NPO: 00:00 Additional verifications Anesthesia Reactions: No Hx Blood Transfusions: No Blood Transfusion Reaction: No Airway Assessment Mallampati Score:: Class II C-Spine Mobility Assessed: Yes TMJ Mobility Assessed: Yes Dentition: Good Dentition Neurological Assessment Level of Consciousness: Awake, Alert and Appropriate Anesthesia Plan Anesthesia Risk discussed: Yes Anesthesia Plan: Verified ASA Class: II Anesthesia Type: General
[2024-12-27] MEDS: CLINDAMYCIN PHOSPHATE/D5W 900 MG/50 ML PIGGYBACK 100 MG IV (09:10)
[2024-12-27] MEDS: ROPIVACAINE 0.5% 30ML VIAL 150 MG (09:39)
[2024-12-27] MEDS: SODIUM CHLORIDE IRRIG SOLUTION 3,000 ML 3000 ML IR (09:40)
--- NOTE | 2024-12-27 09:53 | P.OP_ITS ---
Date of procedure: 12/27/24 Pre-op Diagnosis:: Menorrhagia Post-op Diagnosis:: Menorrhagia Procedure performed:: Hysteroscopy, dilation and curettage, NovaSure ablation and Surgeon:: hKalif Gil MD CLINICAL PROVIDER TRAINER:: Other (Almaz Roldan) Anesthesia: LMA Estimated blood loss (mL): 25 Clinical Note:: She is a 39-year-old lady who complains of extremely heavy periods. She expressed desire for NovaSure ablation. Ultrasound was normal. Operative findings:: She had an anteverted uterus that sounded to 8 cm. The endometrium appeared somewhat erythematous. There were no polyps or other abnormalities. Both tubal ostia were seen. Operative note:: She was taken to the operating room where LMA anesthesia was found be adequate. She was prepped and draped in the normal sterile fashion in the lithotomy position. A weighted speculum was placed in the vagina and the anterior lip of the cervix was grasped with a tenaculum. The cervix was then dilated to approximately 6 mm. I then inserted a hysteroscope into the uterine cavity and the findings were as previously dictated. I then performed a gentle curettage with a medium curette. I then sounded the uterus and determine the length of the uterus. I then inserted the NovaSure device and determine the width of the endometrial cavity. The next of the cavity was 5.5 cm and the width was 4.0 cm. This was placed into the NovaSure device. I then ran the device through its program. I further inspected the endometrial cavity and was found to be completely charred. I then injected 30 cc of 0.5% ropivacaine at the 3:00, 5:00, 7:00, and 9:00 positions of the cervix. She tolerated procedure well and was taken to the recovery room in excellent condition. All sponge and instrument counts were correct. The estimated blood loss was less than 25 cc. Condition: stable Disposition: PACU Specimens:: Endometrial curettings Complications:: None
--- NOTE | 2024-12-27 09:53 | EXP.ANES.I ---
[facility] Anesthesia Record Part I Anesthesia Record I Intake, IV Amount: 800 Hydration: Adequate Estimated blood loss (mL): 0 Urine output (mL): 0 Blood Pressure: 119/78 SaO2: 100 Pulse Rate: 70 Airway Patency: Patent Respiratory Rate: 18 Temperature: 97 F Patient is:: Awake Stable to PACU at:: 09:58
--- NOTE | 2024-12-27 16:06 | EXP.ANES.II ---
[facility] Anesthesia Record Part II Anesthesia Record Part II Discharge Time: 10:20 Destination: Surgical Day Care (OP Surgery) PACU nurse assessment reviewed?: Yes Patient Condition:: Good Anesthesia Complications:: None Swallowing reflex intact?: Yes Airway Patency: Patent Cyanosis?: No Blood Pressure: 133/90 SaO2: 99 Respiratory Rate: 14 Pulse Rate: 66 Temperature: 96.8 F Mental Status: Alert & Oriented Pain level:: 0 Nausea and/or vomitting:: None Intake, IV Amount: 0 Hydration: Adequate
== END 2024-12-27 10:51 | disposition home or self-care (01) ==
PROVIDERS: PCP Internal Medicine Adolescent Medicine; Visit Provider Nurse Practitioner Obstetrics & Gynecology
PROC: 0U5B8ZZ Destruction of Endometrium, Via Natural or Artificial Opening Endoscopic (ICD-10-PCS; CPT 58563; principal; 2024-12-27 09:00)
DX: N92.0 Excessive and frequent menstruation with regular cycle (principal)
CPT/HCPCS: 58563; 96374; J0736; J1100; J1200; J1885; J2250; J2405; J3010; J7120

== ENCOUNTER 2025-01-08 11:06 | Outpatient (CLI) | payer OTHER, SELFPAY ==
[2025-01-08 11:19] LABS: Microscopic, Urine URINE MICROSCOPIC (MICROSCOPIC)
[2025-01-08 11:53] LABS: Appearance,Urine CLEAR (Clear); Bilirubin,Urine Negative (Negative); Blood, Urine 3+ (Negative); Color,Urine YELLOW (Yellow); Glucose,Urine (UA) Negative (Negative); Ketones,Urine Negative (Negative); Leukocyte Esterase,Urine 2+ (Negative); Nitrate,Urine Negative (Negative); PH,Urine 7.5 (5.0-8.5); Protein,Urine Negative (Negative); Specific Gravity, Urine 1.015 (1.005-1.030); Urobilinogen,Urine 0.2 EU/dl (0.2)
[2025-01-08 14:40] LABS: Bacteria,Urine Trace /lpf; RBC,Urine 50-100 #/hpf (0-3); WBC,Urine 50-100 #/hpf (0-3)
[2025-01-08 14:41] LABS: Renal Epithelial Cells,Urine Occasional #/lpf (0)
== END 2025-01-08 23:59 | disposition home or self-care (01) ==
LOC: LAB 11:08
PROVIDERS: PCP Internal Medicine Adolescent Medicine; Visit Provider Nurse Practitioner Obstetrics & Gynecology
DX: N39.0 Urinary tract infection, site not specified (principal)
CPT/HCPCS: 81001; 87086; 87088; 87186

== ENCOUNTER 2025-04-25 08:09 | Outpatient (CLI) | payer OTHER, SELFPAY ==
--- NOTE | 2025-04-25 08:11 | XR_ITS ---
FINAL REPORT CLINICAL HISTORY: Evaluation for Pain of the Right Foot COMPARISON: None FINDINGS: AP, oblique and lateral views of the right foot were obtained. There is no acute fracture or dislocation. The joint spaces are preserved. Soft tissues are unremarkable. IMPRESSION: No acute osseous abnormality of the right foot. Reviewed, Interpreted and Dictated by Rose Shaw MD Transcribed by Sandy Mitchell Authenticated and [facility]
== END 2025-04-25 23:59 | disposition home or self-care (01) ==
LOC: RAD 08:09
PROVIDERS: PCP Internal Medicine Adolescent Medicine; Visit Provider Nurse Practitioner
DX: M25.471 Effusion, right ankle (principal); M79.671 Pain in right foot
CPT/HCPCS: 73630

== ENCOUNTER 2025-05-11 09:01 | Outpatient (CLI) | payer OTHER, SELFPAY ==
--- OUTSIDE RECORDS SUMMARY | 2024-11-20 17:30 | XMS_ITS ---
Author Organization [facility] D [place] Address [address] [place] [address] Care Team Providers Care Director Government Name Role Phone Nolberto Benavidez Primary Care Provider Saima Tran Unavailable [phone] Nolberto Benavidez Unavailable Unavailable Migration, Provider Unavailable Unavailable Allergies Allergen (clinical drug ingredient) Drug/Non Drug Allergy documented on EMR Reaction Allergy Type Onset Date Status amoxicillin Amoxicillin rash Drug Allergy Act z[facility] Conversion Encounter Medications Medication SIG (Take, Route, Frequency, Duration) Notes Start Date End Date Status EMGALITY AUTOINJECTOR GNLM 120 MG/ML 120MG PEN SUBCUTANEOUSLY ONCE A MONTH; Duration: 30 DAYS *Please review for potential replacement for e-prescription and drug interaction check* Active Wellbutrin XL 150 MG 1 tab(s) orally every 24 hours; Duration: 30 days Active Fluticasone Propionate 50 MCG/ACT 1 spray(s) intranasally once a day prn; Duration: 30 days Active Xyzal Allergy 24HR 5 MG 1 tab(s) orally once a day (in the evening); Duration: 90 days Active busPIRone HCl 5 MG 1 tab(s) orally 1 times a day; Duration: 30 days Active Azelastine HCl 137 MCG/SPRAY 2 spray(s) intranasally 2 times a day; Duration: 30 day(s) prn 06/11/2021 Active Ubrelvy 100 MG 1 tab(s) orally once prn Active Omeprazole 40 MG 1 cap(s) orally once a day; Duration: 90 days Active Synthroid 50 MCG 1 tab(s) orally once a day; Duration: 90 Active Famotidine 40 MG 1 tab(s) orally 2 times a day; Duration: 30 days Active ALLERGY INJECTIONS WEEKLY *Please revie w for potential replacement for e-prescription and drug interaction check* Active Encounters Encounter Location Date Provider Diagnosis [facility] [place] [address] [facility] [address] [place] [address] 11/20/2024 Provider Migration Plan Of Treatment No Information Progress Notes * Catherine PRYOR BDOB: [birth year] (39 yo F)Acc No.[id number]:11/20/2024 Patient: Catherine GARCIA B Provider: Marissa cedeño Migration :1985 A ge:39 Y S ex:Female Date:11/20/2024 Address:[address] [place], [place] [address] [address] [place], [id number] Pcp:Nolberto Benavidez Subjective: * Chief Complaints: * 1 . [facility] Conversion Encounter. * Medical History: * Medications: T aking ALLERGY INJECTIONS WEEKLY , Notes to Pharmacist: *Please review for potential replacement for e-prescription and drug interaction check*, Taking Azelastine HCl 137 MCG/SPRAY Solution 2 spray(s) intranasally 2 times a day , Notes to Pharmacist: prn, Taking Ubrelvy 100 MG Tablet 1 tab(s) orally once prn , Taking Omeprazole 40 MG Capsule Delayed Release 1 cap(s) orally once a day , Taking Synthroid 50 MCG Tablet 1 tab(s) orally once a day , Taking Famotidine 40 MG Tablet 1 tab(s) orally 2 times a day , Taking Xyzal Allergy 24HR 5 MG Tablet 1 tab(s) orally once a day (in the evening) , Taking busPIRone HCl 5 MG Tablet 1 tab(s) orally 1 times a day , Taking Wellbutrin XL 150 MG Tablet Extended Release 24 Hour 1 tab(s) orally every 24 hours , Taking Fluticasone Propionate 50 MCG/ACT Suspension 1 spray(s) intranasally once a day prn , Taking EMGALITY AUTOINJECTOR GNLM 120 MG/ML SOLUTION 120MG PEN SUBCUTANEOUSLY ONCE A MONTH , Notes to Pharmacist: *Please review for potential replacement for e-prescription and drug interaction check* * Allergies: A moxicillin: rash. Objective: * Vitals: Assessment: Plan: * Treatment: * * Electronic signature of Tang puga Migration on 05/11/2025 at 09:12 AM EDT Sign off status: Pending * Provider: Marissa cedeño Migration Date: 0 11/20/2024 Generated for Jules melvin/Mainor/Tonya on: 0 05/11/2025 09:12 AM EDT
--- OUTSIDE RECORDS SUMMARY | 2025-05-11 09:13 | XMS_ITS | Patient Health Record ---
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 Name Role Phone Nolberto Benavidez Primary Care Provider Saima Tran Unavailable [phone] Nolberto Benavidez Unavailable Unavailable Migration, Provider Unavailable Unavailable Allergies Allergen (clinical drug ingredient) Drug/Non Drug Allergy documented on EMR Reaction Allergy Type Onset Date Status amoxicillin Amoxicillin rash Drug Allergy Act zari Results Component Value Reference Range Notes M-Free T4 (Free Thyroxine) Reviewed date:09/29/2024 02:54:29 PM Interpretation: Performing Lab: Notes/Report: T4F 1.17 0.78-2.19 ng/dl H-X-Hehchhwi Protein Reviewed date:09/29/2024 02:54:29 PM Interpretation: Performing Lab: Notes/Report: CRP 1.7 0-4 mg/L M-Uric Acid Reviewed date:09/29/2024 02:54:28 PM Interpretation: Performing Lab: Notes/Report: URIC 3.9 2.5-6.2 mg/dl M-Comprehensive Metabolic Pa woody Reviewed date:09/29/2024 02:54:28 PM Interpretation: Performing Lab: Notes/Report: NA 139 136-145 mmol/L K 4.0 3.5-5.1 mmoL/L CL 106 98-107 mmol/L CO2 24 22.0-30.0 mmol/L GAP 13.0 5-15 mEq/L BUN 6 7-17 mg/dl CREATT 0.70 0.52-1.04 mg/dl GFRAA 114 >60 ML/MIN EGFR 94 >60 ml/min GLU 82 74-100 mg/dl CA 9.1 8.4-10.2 mg/dl BILIT 0.5 0.2-1.3 mg/dl AST 31 14-36 U/L ALT 21 12-78 U/L TP 7.1 6.3-8.2 g/dl ALB 4.4 3.5-5.0 g/dl GLOB 2.7 1.3-3.2 g/dL AGRATIO 1.6 1.1-1.8 ALP 76 38-126 U/L M-Erythrocyte Sedimentation Rate Reviewed date:09/29/2024 02:54:28 PM Interpretation: Performing Lab: Notes/Report: ESR 11 0-20 mm/hr M-Complete Blood Count Auto Diff Reviewed date:09/29/2024 02:54:28 PM Interpretation: Performing Lab: Notes/Report: WBC 8.1 4.8-10.8 K/mm3 RBC 4.23 4.20-5.40 M/mm3 HGB 11.5 12.2-16.2 g/dL HCT 36.7 37.0-47.0 % MCV 86.8 81-99 fl MCH 27.2 27.0-31.2 pg MCHC 31.3 31.8-35.4 g/dL RDW 14.3 11.5-17.5 % PLT 365 142-424 K/mm3 MPV 8.8 7.4-10.4 fl NE% 63.3 37.0-80.0 % LY% 27.7 10-50 % MO% 6.2 1.7-9.3 % EO% 1.5 0.1-12.0 % BA% 0.9 0.1-2.0 % NE# 5.1 1.8-7.8 K/mm3 LY# 2.3 0.7-4.5 K/mm3 MO# 0.5 0.1-1.0 K/mm3 EO# 0.1 0.0-0.4 K/mm3 BA# 0.1 0-0.2 K/mm3 Rapid Strep Reviewed date:11/10/2024 09:25:44 PM Interpretation:Negative Performing Lab: Notes/Report: Negative H-TVITD Reviewed date:09/29/2024 02:54:00 PM Interpretation: Performing Lab: Notes/Report: TVITD 39.9 30-100 ng/mL Deficient <20 ng/mL Insufficient 20-30 ng/mL Sufficient 30-100 ng/mL Potential Toxicity >100 ng/mL H-VITB12 Reviewed date:09/29/2024 02:54:00 PM Interpretation: Performing Lab: Notes/Report: VITB12 517 239-931 pg/mL H-ACCP Reviewed date:09/30/2024 05:21:32 PM Interpretation: Performing Lab: Notes/Report: ACCP 6 REFERENCE INTERVAL: 0-19 NEGATIVE: <20 WEAK POSITIVE: 20-39 MODERATE POSITIVE: 40-59 STRONG POSITIVE: >59 Performed at: [address] [id number] Digital Artist: Prabhjot Ruiz PhD, Phone: [phone] M-Antinuclear Antibodies, IF A Reviewed date:10/01/2024 12:07:07 PM Interpretation: Performing Lab: Notes/Report: ANAIFA Negative . Negative <1:80 Borderline 1:80 Positive >1:80 ICAP nomenclature: AC-0 For more information about Hep-2 cell patterns use ANApatterns.org, the official website for the International Consensus on Antinuclear Antibody (ISABEL) Patterns (ICAP). Performed at: [address] [id number] Digital Artist: Prabhjot Ruiz PhD, Phone: [phone] M-Strep Screen Confirmation Reviewed date:10/01/2024 11:56:34 AM Interpretation: Performing Lab: Notes/Report: Rapid Strep Reviewed date:07/29/2024 08:23:05 AM Interpretation:Positive Performing Lab: Notes/Report: Positive Rapid Strep Reviewed date:09/06/2024 11:17:21 AM Interpretation:Positive Performing Lab: Notes/Report: Positive M-Thyroid Stimulating Hormon e Reviewed date:09/29/2024 02:54:29 PM Interpretation: Performing Lab: Notes/Report: TSH 1.77 0.465-4.68 uIU/mL M-Strep Scrn Group A (Rapid) Reviewed date:09/29/2024 02:54:29 PM Interpretation: Performing Lab: Notes/Report: SST Negative Negative M-RA Latex Turbid. Reviewed date:10/01/2024 02:00:40 PM Interpretation: Performing Lab: Notes/Report: RA 10.4 <14.0 IU/mL Performed at: [address] [id number] Digital Artist: Prabhjot Ruiz PhD, Phone: [phone] M-Throat Culture Reviewed date:10/01/2024 12:01:20 PM Interpretation: Performing Lab: Notes/Report: CUTC Normal Upper Respiratory Regina Medications Medication SIG (Take, Route, Frequency, Duration) Notes Start Date End Date Status busPIRone HCl 5 mg 1 tablet orally once a day; Duration: 90 days Active Xyzal Allergy 24HR 5 MG 1 tab(s) orally once a day (in the evening); Duration: 90 days Active Emgality 120 mg/mL INJECT 1 ML SUBCUTANEOUSLY ONCE a MONTH subcutaneously every 28 days; Duration: 28 days Active Fluticasone Propionate 50 MCG/ACT 1 spray(s) intranasally once a day prn; Duration: 30 days Active Famotidine 40 MG 1 tab(s) orally 2 times a day; Duration: 90 days Active Omeprazole 40 MG 1 cap(s) orally once a day; Duration: 90 days Active ALLERGY INJECTIONS WEEKLY *Please revie w for potential replacement for e-prescription and drug interaction check* Active Ubrelvy 100 MG 1 tablet as needed, may take second dose at least 2 hours after first dose up to 2 tablets per day as needed orally Once a day; Duration: 30 days Active Azelastine HCl 137 MCG/SPRAY 2 spray(s) intranasally 2 times a day; Duration: 30 days prn 06/11/2021 Active Synthroid 50 MCG 1 tab(s) orally once a day; Duration: 90 days Active Wellbutrin XL 150 MG 1 tab(s) orally every 24 hours; Duration: 90 days Active Problems Problem Type SNOMED Code ICD Code Onset Dates Problem Status W/U Status Risk Notes Problem Hypothyroidism (80797211) Hypothyroidism, unspecified (E03.9) Active confirmed Problem Overweight (317805620) Overweight (E66.3) Active confirmed Problem Irritable bowel syndrome (70681526) Irritable bowel syndrome without diarrhea (K58.9) Active confirmed Problem Wheezing (92996920) Wheezing (R06.2) Active con firmed Problem Gastroesophageal reflux disease (773077308) GERD (gastroesophagea l reflux disease) (K21.9) Active confirmed Problem Sciatica (90676004) Left sciatic nerve pain (M54.32) Active confirmed Problem Anxiety (61187100) Anxiety (F41.9) Active confi rmed Problem Allergic rhinitis (78127564) Chronic allergic rhinitis (J30.9) Active confirmed Problem Tonsillar hypertrophy (73934561) Tonsillar hypertrophy (J35.1) Active confirmed Problem Migraine with aura (4783512) Migraine with aura and without status migrainosus, not intractable (G43.109) Active confirmed Problem Tension headache (959843735) Tension headache (G44.209) Active confirmed Problem Migraine without aura, not refractory (886650439) Migraine without aura and without status migrainosus, not intractable (G43.009) Active confirmed Problem Recurrent sinusitis (935946465) Recurrent sinusitis (J32.9) Active confirmed Problem Bilateral tinnitus (3925253218560) Tinnitus of both ears (H93.13) Active confirmed Problem Migraine (17582689) Migraine wit hout status migrainosus, not intractable, unspecified migraine type (G43.909) Active confirmed Problem Amenorrhea (59849065) Amenorrhea (N91.2) Active confirmed Problem Cervical radiculopathy (97848487) Cervical radiculopathy (M54.12) Active confirmed Problem Depressed mood (856966334) Depressed mood (F32.9) Active confirmed Problem Sciatica (30840605) Acute left-s ided low back pain with left-sided sciatica (M54.42) Active confirmed Problem Chronic sore throat (420232172) Chronic sore throat (J31.2) Active confirmed Problem Vascular malformation (806694096) Vascular malformation (Q27.9) Active confirmed Problem Varicose veins of left lower limb (24636036961629396) Varicose veins of left lower extremity with pain (I83.812) Active confirmed Problem Anemia (106677455) Mild anemia (D64.9) Active confirmed Problem Biliary dyskinesia (146070689) Biliary dyskinesia (K82.8) Active confirmed Vital Signs Heart Rate 80 /min 01/31/2025 Temperature 97.8 degrees Fahrenheit 01/31/2025 Blood pressure diastolic 80 mm Hg 01/31/2025 Height 5 ft 4 in in 01/31/2025 Blood pressure systolic 122 mm Hg 01/31/2025 Weight 150.8 lbs 01/31/2025 BMI 25.88 kg/m2 01/31/2025 Encounters Encounter Location Date Provider Diagnosis [facility] [address] [place] [address] [place] [address] 11/20/2024 Provider Migration [facility] [address] [place] [address] [place], [place] [address] 07/29/2024 Saima Chelsea Strep sore throat J02.0 [facility] [address] [place] [address] [place] [address] 09/06/2024 [facility] Strep sore throat J02.0 ; Pain in right hand M79.641 and Pain in left hand M79.642 [facility] [address] [place] [address] [place] [address] [facility] M79.641 ; Recurrent streptococcal pharyngitis J02.0 ; Pain in left hand M79.642 and Mild anemia D64.9 [facility] [address] [place] [address] [place], [place] [address] 11/10/2024 Nolberto Besson Sore throat J02.9 an d Viral pharyngitis J02.9 [facility] [address] [place] [address] [place], [place] [address] 01/31/2025 [facility] Routine medical exam Z00.00 ; Migraine without status migrainosus, not intractable, unspecified migraine type G43.909 ; Hypothyroidism, unspecified E03.9 ; Anxiety F41.9 ; Chronic allergic rhinitis J30.9 ; GERD (gastroesophageal reflux disease) K21.9 ; Mild anemia D64.9 ; Vascular malformation Q27.9 ; BMI 25.0-25.9,adult Z68.25 and Overweight E66.3 [facility] [address] [place] [address] [place], [place] [address] 09/28/2024 Saima Tran Chronic sore throat J31.2 and Multiple joint pain M25.50 [facility] [address] [place] [address] [place] [address] 04/28/2025 Saima Tran Assessments Encounter Date Diagnosis (ICD Code) Assessment Notes Treatment Notes Treatment Clinical Notes Section Notes 07/29/2024 Strep sore throat (ICD-10 - J02.0) Discussed infectious precautions, no school or return to work until afebrile for 24 hours. Encourage oral fluid intake and discussed fever treatment. Discussed importance of completing all antibiotics and reasons for followup. 09/06/2024 Pain in right hand (ICD-10 - M79.641) 09/06/2024 Strep sore throat (ICD-10 - J02.0) 09/28/2024 Chronic sore throat (ICD-10 - J31.2) 09/28/2024 Multiple joint pain (ICD-10 - M25.50) 09/30/2024 Pain in right hand (ICD-10 - M79.641) CTS vs tendonitis vs inflammatory arthritis. Inflammatory markers are normal, RF negative, ISABEL/CCP pending. Continue to monitor for now. Consider night splints for possible CTS if additional blood tests are normal 09/30/2024 Recurrent streptococcal pharyngitis (ICD-10 - J02.0) Completed oral clindamycin. Repeat strep screen negative, culture pending. 11/10/2024 Sore throat (ICD-10 - J02.9) 11/10/2024 Viral pharyngitis (ICD-10 - J02.9) Supportive care, most likely has enterovirus/coxs ackievirus. 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 01/31/2025 Routine medical exam (ICD-10 - Z00.00) Well Visit, Ages 18 to 65: Care Instructions material was published Continue follow-up with gynecology, ENT as needed She will continue to work on weaning her PPI as well as her antihistamine. Otherwise no medication changes recommended at this time 01/31/2025 Migraine without status migrainosus, not intractable, unspecified migraine type (ICD-10 - G43.909) 01/31/2025 Hypothyroidism, unspecified (ICD-10 - E03.9) 09/30/2024 Pain in left hand (ICD-10 - M79.642) 09/06/2024 Pain in left hand (ICD-10 - M79.642) 09/30/2024 Mild anemia (ICD-10 - D64.9) mild normocytic anemia, rec routine MV, monitor 01/31/2025 Anxiety (ICD-10 - F41.9) 01/31/2025 Chronic allergic rhinitis (ICD-10 - J30.9) 01/31/2025 GERD (gastroesophageal reflux disease) (ICD-10 - K21.9) 01/31/2025 Mild anemia (ICD-10 - D64.9) 01/31/2025 Vascular malformation (ICD-10 - Q27.9) 01/31/2025 BMI 25.0-25.9,adult (ICD-10 - Z68.25) 01/31/2025 Overweight (ICD-10 - E66.3) 09/06/2024 Other labs and repea t strep screen 1 week after antibiotics Plan Of Treatment Pending Test Test Name Order Date N-CBC 07/29/2008 N-Monospot 07/29/2008 N-Throat culture 07/29/2008 Urinalysis 11/27/2018 Urinalysis 06/07/2019 N-EBV Titre 07/29/2008 Rapid Strep 04/17/2015 Rapid Strep 11/26/2016 Rapid Strep 04/13/2018 Rapid Strep 03/01/2008 N-CMP 07/29/2008 Venous Doppler : Lower Extremity 015 N-CMV 07/29/2008 Physical Therapy 10/04/2020 N-ASO titer 07/29/2008 Doppler: Venous, L Lower Extremity 09/30 CT Scan : Abdomen and Pelvis with and wi thout contrast 06/28/2010 H-CBC with AUTO DIFF 05/03/2008 H-CBC with AUTO DIFF 05/04/2008 H-URINE CULTURE 12/26/2015 H-THROAT CULTURE 03/01/2008 H-THYROID PANEL 2- (T3 Uptake, T4, Free Thyroxine Index, TSH) 10/31/2017 H-TSH 03/23/2015 H-TSH 12/21/2014 H-FREE T4 12/18/2015 C-URINE CULTURE 06/07/2019 C-MISC CULTURE 11/18/2008 Physical Therapy : Lymphedema 11/12/2021 M-Complete Blood Count Auto Diff 021 M-Comprehensive Metabolic Panel 06/11/20 21 M-Ferritin 04/09/2023 M-Thyroid Stimulating Hormone 11/12/2021 M-Thyroid Stimulating Hormone 06/11/2021 P-Kloj-Ypltcnw Antibody Titer 09/28/2024 M-Diarrhea Panel, PCR 05/17/2022 M-Vitamin B12 04/09/2023 M-Vitamin B12 06/11/2021 M-Vitamin B12 09/28/2024 M-Vitamin D 25 Hydroxy 09/28/2024 M-Folate 04/09/2023 N-Ucjo-Jigusf Citrullinated Pept 025 M-Fecal Fat, Qualitative 05/17/2022 M-H. pylori Stool Ag, EIA 05/17/2022 M-Lactoferrin, Fecal, Quant. 05/17/2022 M-Stool WBC Smear 05/17/2022 M-COVID 19 PCR SEND OUT 03/21/2020 M-COVID PCR SINGLE RAPID 08/28/2020 Physical Therapy Eval and Treat 04/18/20 23 Future Test Test Name Order Date M-Vitamin B12 11/16/2020 Insurance Providers Payer Name Payer Address Payer Phone Subscriber Number Group Number Insured Name Patient Relationship to Insured Coverage Start Date Coverage End Date R [place] [address] [place] [address] [id number] Catherine Pryor Self - patient is the insured Medications Administered Medication Instructions Date of Administration Dosage Notes Ceftriaxone 500 09/26/2014 500 Dexamethasone 4mg Injection 06/11/2021 4 mg Dexamethasone 4mg Injection 07/05/2022 4 mg Dexamethasone 4mg Injection 04/14/2023 4 mg Kenalog 40mg 04/28/2017 40 mg Kenalog 40mg 06/30/2017 40 mg Kenalog 40mg 09/05/2017 40 mg Promethazine 07/31/2018 1 mL Triamcinolone Acetonide 40mg Injection 02/26/2018 1 mL Triamcinolone Acetonide 40mg Injection 07/31/2018 1 mL Triamcinolone Acetonide 40mg Injection 10/15/2018 1 mL Triamcinolone Acetonide 40mg Injection 12/15/2018 1 mL Triamcinolone Acetonide 40mg Injection 09/06/2019 1 mL Triamcinolone Acetonide 40mg Injection 09/19/2020 1 mL Kenalog 09/26/2014 1 Medical (General) History Medical History History ICD Code herpes type II Left leg hemangioma hypothyroidism tonsillar hypertrophy Migraines Depression with anxiety IBS - With normal colonoscopy 11/07 pericarditis Surgical History Surgery Date(Month/Year) wisdom teeth extracted EGD Lap Sophie 12/2019 tonsillectomy uterine ablation 12/2024 Hospitalization History Reason Date(Month/Year) tonsillitis 04/2017 @ [facility]
[2025-05-11 10:05] LABS: Strep Scrn Group A (Rapid) Negative (Negative)
== END 2025-05-11 23:59 | disposition home or self-care (01) ==
PROVIDERS: PCP Internal Medicine Adolescent Medicine; Visit Provider Nurse Practitioner Family
DX: J02.0 Streptococcal pharyngitis (principal); B95.5 Unspecified streptococcus as the cause of diseases classified elsewhere
CPT/HCPCS: 87430

== ENCOUNTER 2025-06-03 15:31 | Outpatient (CLI) | payer OTHER, SELFPAY ==
--- OUTSIDE RECORDS SUMMARY | 2024-11-20 17:30 | XMS_ITS ---
Author Organization [facility] D [place] Address [address] [place] [address] Care Team Providers Care Bobbin Hauler Name Role Phone Nolberto Benavidez Primary Care Provider Saima Tran Unavailable [phone] Nolberto Benavidez Unavailable Unavailable Migration, Provider Unavailable Unavailable Allergies Allergen (clinical drug ingredient) Drug/Non Drug Allergy documented on EMR Reaction Allergy Type Onset Date Status amoxicillin Amoxicillin rash Drug Allergy Act zari [facility]IT [facility] Conversion Encounter Medications Medication SIG (Take, [...] Active Encounters Encounter Location Date Provider Diagnosis [facility] IM [facility] [place] [address] [facility] [address] [place] [address] 11/20/2024 Provider Migration Plan Of Treatment No Information Progress Notes * Catherine PRYOR BDOB: [birth year] (39 yo F)Acc No.[id number]:11/20/2024 Patient: Catherine GARCIA B Provider: Marissa cedeño Migration :1985 A ge:39 Y S ex:Female Date:11/20/2024 Address:[address] [place], [place] [address] [address], [place], [id number] Pcp:Nolberto Benavidez Subjective: * Chief Complaints: * [...] Electronic signature of Tang puga Migration on 06/03/2025 at 09:01 AM EDT Sign off status: Pending * Provider: Marissa cedeño Migration Date: 0 11/20/2024 Generated for Jules melvin/Mainor/Tonya on: 1 09:01 AM EDT
--- OUTSIDE RECORDS SUMMARY | 2025-06-03 08:55 | XMS_ITS | Encounter Summary ---
Author Organization [facility] Address [address] [place] [address] Care Team Providers Care Tool Straightener Name Role Phone Provider, No Known Primary Care Provider Unavail able Reason for Visit * Health Education (Routine) - Pending Review Specialty Diagnoses / Procedures Referred By Jesi dubose Referred To Contact Nutrition Diagnoses Irritable bowel syndrome with constipation Functional dyspepsia Abdominal distention Procedures VT OFFICE/OUTPATIENT NEW MODERATE MDM 45 MINUTES Ivonne Nye APRN [address] [facility] [address] [place] [address] Phone: tel: fax: [facility] [address] [facility] [address] [place] [address] Phone: tel: fax: Referral ID Status Reason Start Date Expiration Date V isits Requested Visits Authorized [id number] Pending Review 05/20/2025 08/19/2026 1 1 Encounter Details Date Type Department Care Team (Late st Contact Info) Description 06/03/2025 8:55 AM EDT Hospital Encounter [facility] [address] [facility] [address] [place] [address] Scooby Jones Social History Tobacco Use Types Packs/Day Years Used Date Smoking Tobacco: Never Assessed Comments Unknown Sex and Gender Information Value Date Recorded Sex Assigned at Not on file Legal Sex Female 9:25 AM EDT Gender Identity Not on file Sexual Orientation Not on file documented as of this encounter Consult Notes * Scooby Jones - 06/03/2025 9:00 AM EDT [facility] Nutrition Services Initial 60 Minute Nutrition Visit Date: 06/03/2025 Patient Name: Catherine Pryor : 1985 Referring Provider: Ivonne Nye APRN Reason for Visit: IBS-C Visit Format: TEAMS Nutrition Assessment Social History: Social History[1] Active Problem List: There are no active problems to display for this patient. Current Medications: Miralax, Metamucil, Beano (known to RD) Labs: No labs available to RD Hunger Vital Sign Food Insecurity Assessment: Within the past 12 months I/we worried whether our food would run out before I/we got money to buy more: No Within the past 12 months the food I/we bought just didn't last and I/we didn't have money to get more: No Use of food assistance programs (WIC, food stamps, food turner) No Food & Nutrition Related History Food Allergies: NKFA Food Intolerances: None indicated Food Behavior: None Nutrition Impact Symptoms: constipation; bloating; abdominal pain; gas Gastrointestinal conditions that impact intake or food choices: GERD; cholecystectomy Details at home: Catherine lives at home with her family and 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 Who prepares most meals: Self Who does grocery shopping: Self How many meals are purchased from fast food/sit down restaurants per week: 3-4 times/week (usually on weekends) Difficulty chewin - Normal Difficulty swallowin - Normal Diet requirement related to personal preference or cultural belief: None indicated History of eating disorder/disordered eating habits: None Language/communication details: Argentine Barriers to learning: No barriers identified at this time 24 Hour Recall: Time Food/beverages consumed Breakfast Usually skips When consuming: One poptart Or Eggs, bai at hospital Snack None Lunch [place] and [place] cheese sandwich on honey wheat bread with chips and mini can of Coke Or Whatever is being served in hospital cafeteria Snack None Dinner Tacos Spaghetti Homemade Chicken Noodle Soup Homemade Ranch dip with raw veggies Snack Gummy candies Beverages 40-60oz water/day 1-2 mini cans of Coke Anthropometrics Height: 66 inches Weight: 151lbs Weight Change: Not discussed Physical Activity Physical activity comments: Not discussed in depth. 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 Will discuss further at time of follow-ups. Estimated Needs Estimated Energy Needs: 1200-1500kcal/day (1.2) Estimated Protein Needs: 75-105g/day (20-30%) Estimated Fluid Needs: Minimum of 64oz/day of water (80oz recommended) Discussion / Education Catherine is a 39 year old female referred for IBS-C who has a history of GERD, hypothyroidism, cholecystectomy and hepatic flexure syndrome. Catherine feels that her biggest nutrition related challenge isnot knowing what foods may be contributing to constipation, abdominal pain, gas and bloating. Her motivation is to find relief from current GI symptoms. Catherine has not tried a low FODMAP diet before;she has received information from her provider but has not thoroughly reviewed it. Catherine describesexperiencing flare ups, roughly 1-2 per month, where she will have severe bloating and abdominal pain. She states that this has become worse and more frequent since having her gallbladder removed three years ago. Catherine reports that, despite success with a combination of Miralax and Metamucil whichpromotes daily bowel movements, she does not feel that she fully evacuates her bowels. She further reports that, if she misses even one day of her Miralax and Metamucil, it will take 2-3 days to return to daily bowel movements. Catherine has found that coffee and tea tend to be triggers for flare ups,so she avoids both. She does not find that her daily Coke intake contributes to GI concerns. Catherine was identified as potentially benefiting from low FODMAP diet due to GI concerns. Catherine's current GI symptoms are bloating, reflux, lower GI pain, constipation, and incomplete BM. Catherine has not attempted a low FODMAP diet before. She has been experiencing symptoms for 5 years, but they have become worse in the past three years, post gallbladder removal. RD reviewed low FODMAP diet guidelines with Catherine and explained the three part low FODMAP diet: elimination, reintroduction, and maintenance. The elimination phase consists of 2-3 weeks of no/low FODMAP foods only, followed by 4-12 week reintroduction phase, eventually leading to terminologist maintenance phase. RD reviewed low FODMAP sources of fiber with Catherine. RD also encouraged Catherine to prioritize adequate hydration to help general GI symptoms. RD encouraged Catherine to maintain a food and symptom log for the duration of the elimination phase and reintroduction of FODMAP containing foods and to bring it to her next appointment to review with RD. She was agreeable to this. RD also provided FODMAP Everyday, [place] and A Little Bit Yummy websites for additional resources and recipes. RD reviewed that high FODMAP foods may not be the source of constipation and further discussed that, if Catherine completes the 2-3 week Elimination Phase and does not find relief, that the next step would be to evaluate lifestyle changes that can be made such as hydration, movement, gradually increasing soluble fiber, cooking techniques, volume/quantity at meal times. RD provided information on Pelvic Floor Therapy, which is showing promise in contributing to the treatment of constipation. Hypothyroidism may also be a contributing factor to constipation; RD to discuss at time of future follow-up. Assessment of patient engagement: Engaged Measurement of understanding: Patient verbalized understanding, Patient able to demonstrate understanding with teach back Resources Provided: FODMAP Elimination Diet Booklet; FODMAP Everday grocery shopping list Goal (s) Goal 1: Increase water intake to a minimum of 64oz/day. Goal 2: FODMAP Elimination for three weeks. Goal 3: Food/symptom journal Plan of Care PES Statement: Altered gastrointestinal motility related to irritable bowel syndrome- constipation type as evidenced by history of constipation and bloating now managed with daily psyllium supplementation and Miralax resulting in regular bowel movements. Follow Up Visit Follow Up: June 24 at 10:15am, TEAMS Total of 60 minutes spent with patient on nutrition counseling. Education based on Academy of Nutrition and Dietetics guidelines. Patient was provided with RD's contact information. Thank you for this referral. [1] Social History Socioeconomic History Marital status: documented in this encounter Plan of Treatment Upcoming Encounters Date Type Department Care Team (Late st Contact Info) Description 06/24/2025 10:15 AM EST Appointment [facility] [address] [facility] [address] [place] [id number] Scooby Jones Scheduled Referrals Name Type Priority Associated Diagnoses Order Schedule Ambulatory Referral to Nutrition Services Outpatient Referral Routine Irritable bowel syndrome with constipation Functional dyspepsia Abdominal distention Ordered: 05/20/2025 documented as of this encounter Visit Diagnoses Not on filedocumented in this encounter Care Teams Tool Straightener Relationship Specialty Start Date End Date Provider, [place] [address] PCP - General 06/03/25 documented as of this encounter
--- OUTSIDE RECORDS SUMMARY | 2025-06-03 15:33 | XMS_ITS | Patient Health Record ---
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 Name Role Phone Nolberto Benavidez Primary Care Provider Saima Tran Unavailable [phone] Nolberto Benavidez Unavailable Unavailable Migration, Provider Unavailable Unavailable Allergies Allergen (clinical drug ingredient) Drug/Non Drug Allergy documented on EMR Reaction Allergy Type Onset Date Status amoxicillin Amoxicillin rash Drug Allergy Act zari Results Component Value Reference Range Notes Rapid Strep Reviewed date:09/06/2024 11:17:21 AM Interpretation:Positive Performing Lab: Notes/Report: Positive M-Complete Blood Count Auto Diff Reviewed date:09/29/2024 [...] 0.1 0.0-0.4 K/mm3 BA# 0.1 0-0.2 K/mm3 M-Erythrocyte Sedimentation Rate Reviewed date:09/29/2024 02:54:28 PM Interpretation: Performing Lab: Notes/Report: ESR 11 0-20 mm/hr M-Comprehensive Metabolic Pa woody Reviewed date:09/29/2024 02:54:28 [...] AGRATIO 1.6 1.1-1.8 ALP 76 38-126 U/L M-Uric Acid Reviewed date:09/29/2024 02:54:28 PM Interpretation: Performing Lab: Notes/Report: URIC 3.9 2.5-6.2 mg/dl F-Q-Ytdiwnax Protein Reviewed date:09/29/2024 02:54:29 PM Interpretation: Performing Lab: Notes/Report: CRP 1.7 0-4 mg/L M-Free T4 (Free Thyroxine) Reviewed date:09/29/2024 02:54:29 PM Interpretation: Performing Lab: Notes/Report: T4F 1.17 0.78-2.19 ng/dl M-Thyroid Stimulating Hormon e Reviewed date:09/29/2024 02:54:29 PM Interpretation: Performing Lab: Notes/Report: TSH 1.77 0.465-4.68 uIU/mL M-Strep Scrn Group A (Rapid) Reviewed date:09/29/2024 02:54:29 PM Interpretation: Performing Lab: Notes/Report: SST Negative Negative M-RA Latex Turbid. Reviewed date:10/01/2024 02:00:40 PM Interpretation: Performing Lab: Notes/Report: RA 10.4 <14.0 IU/mL Performed at: [address] [id number] Chip Tuner: Prabhjot Ruiz PhD, Phone: [phone] M-Antinuclear Antibodies, IF A Reviewed date:10/01/2024 12:07:07 PM Interpretation: Performing Lab: Notes/Report: ANAIFA Negative . Negative <1:80 Borderline 1:80 Positive >1:80 ICAP nomenclature: AC-0 For more information about Hep-2 cell patterns use ANApatterns.org, the official website for the International Consensus on Antinuclear Antibody (ISABEL) Patterns (ICAP). Performed at: [employer] [id number] Chip Tuner: Prabhjot Ruiz PhD, Phone: [phone] M-Strep Screen Confirmation Reviewed date:10/01/2024 11:56:34 AM Interpretation: Performing Lab: Notes/Report: M-Throat Culture Reviewed date:10/01/2024 12:01:20 PM Interpretation: Performing Lab: Notes/Report: CUTC Normal Upper Respiratory Regina H-TVITD Reviewed date:09/29/2024 02:54:00 PM Interpretation: Performing [...] POSITIVE: 40-59 STRONG POSITIVE: >59 Performed at: [address] [id number] Chip Tuner: Prabhjot Ruiz PhD, Phone: [phone] Rapid Strep Reviewed date:07/29/2024 08:23:05 AM Interpretation:Positive Performing Lab: Notes/Report: Positive Rapid Strep Reviewed date:11/10/2024 09:25:44 PM Interpretation:Negative Performing Lab: Notes/Report: Negative Medications Medication SIG (Take, Route, Frequency, Duration) [...] Status W/U Status Risk Notes Problem Hypothyroidism (12031096) Hypothyroidism, unspecified (E03.9) Active confirmed Problem Overweight (086138499) Overweight (E66.3) Active confirmed Problem Irritable bowel syndrome (02986121) Irritable bowel syndrome without diarrhea (K58.9) Active confirmed Problem Wheezing (69614105) Wheezing (R06.2) Active con firmed Problem Gastroesophageal reflux disease (791953079) GERD (gastroesophagea l reflux disease) (K21.9) Active confirmed Problem Sciatica (45816941) Left sciatic nerve pain (M54.32) Active confirmed Problem Anxiety (96889218) Anxiety (F41.9) Active confi rmed Problem Allergic rhinitis (16229766) Chronic allergic rhinitis (J30.9) Active confirmed Problem Tonsillar hypertrophy (48657557) Tonsillar hypertrophy (J35.1) Active confirmed Problem Migraine with aura (0641728) Migraine with aura and without status migrainosus, not intractable (G43.109) Active confirmed Problem Tension headache (903012113) Tension headache (G44.209) Active confirmed Problem Migraine without aura, not refractory (299615001) Migraine without aura and without status migrainosus, not intractable (G43.009) Active confirmed Problem Recurrent sinusitis (400927281) Recurrent sinusitis (J32.9) Active confirmed Problem Bilateral tinnitus (4044485041852) Tinnitus of both ears (H93.13) Active confirmed Problem Migraine (65428955) Migraine wit hout status migrainosus, not intractable, unspecified migraine type (G43.909) Active confirmed Problem Amenorrhea (71121417) Amenorrhea (N91.2) Active confirmed Problem Cervical radiculopathy (43758509) Cervical radiculopathy (M54.12) Active confirmed Problem Depressed mood (077572409) Depressed mood (F32.9) Active confirmed Problem Sciatica (27597692) Acute left-s ided low back pain with left-sided sciatica (M54.42) Active confirmed Problem Chronic sore throat (188751714) Chronic sore throat (J31.2) Active confirmed Problem Vascular malformation (392010796) Vascular malformation (Q27.9) Active confirmed Problem Varicose veins of left lower limb (81855186967740186) Varicose veins of left lower extremity with pain (I83.812) Active confirmed Problem Anemia (761937613) Mild anemia (D64.9) Active confirmed Problem Biliary dyskinesia (594272920) Biliary dyskinesia (K82.8) Active confirmed Vital Signs Heart Rate 80 /min 01/31/2025 Temperature 97.8 degrees Fahrenheit 01/31/2025 Blood pressure diastolic 80 mm Hg 01/31/2025 Height 5 ft 4 in in 01/31/2025 Blood pressure systolic 122 mm Hg 01/31/2025 Weight 150.8 lbs 01/31/2025 BMI 25.88 kg/m2 01/31/2025 Encounters Encounter Location Date Provider Diagnosis [facility] [address] [place] [address] [place] [address] 11/20/2024 Provider Migration [facility] [address] [place] [address] [place], [place] [address] 07/29/2024 Saima Chelsea Strep sore throat J02.0 [facility] [address] [place] [address] [place] [address] 09/06/2024 [facility] Strep sore throat J02.0 ; Pain in right hand M79.641 and Pain in left hand M79.642 [facility] [address] [place] [address] [place] [address] [facility] M79.641 ; Recurrent streptococcal pharyngitis J02.0 ; Pain in left hand M79.642 and Mild anemia D64.9 [facility] [address] [place] [address] [place], [place] [address] 11/10/2024 Nolberto Besson Sore throat J02.9 an d Viral pharyngitis J02.9 [facility] [address] [place] [address] [place], [place] [address] 01/31/2025 [facility] Routine medical exam Z00.00 ; Migraine without status migrainosus, not intractable, unspecified migraine type G43.909 ; Hypothyroidism, unspecified E03.9 ; Anxiety F41.9 ; Chronic allergic rhinitis J30.9 ; GERD (gastroesophageal reflux disease) K21.9 ; Mild anemia D64.9 ; Vascular malformation Q27.9 ; BMI 25.0-25.9,adult Z68.25 and Overweight E66.3 [facility] [address] [place] [address] [place], [place] [address] 09/28/2024 Saima Tran Chronic sore throat J31.2 and Multiple joint pain M25.50 [facility] [address] [place] [address] [place] [address] 04/28/2025 Saima Tran Assessments Encounter Date Diagnosis [...] T4, Free Thyroxine Index, TSH) 10/31/2017 H-TSH 12/21/2014 H-TSH 03/23/2015 H-FREE T4 12/18/2015 C-URINE CULTURE 06/07/2019 C-MISC CULTURE 11/18/2008 Physical Therapy : Lymphedema 11/12/2021 M-Complete Blood Count Auto Diff 021 M-Comprehensive Metabolic Panel 06/11/20 M-Ferritin 04/09/2023 M-Thyroid Stimulating Hormone 11/12/2021 M-Thyroid Stimulating Hormone 06/11/2021 Y-Sfek-Djqrcrx Antibody Titer 09/28/2024 M-Diarrhea Panel, PCR 05/17/2022 M-Vitamin B12 06/11/2021 M-Vitamin B12 09/28/2024 M-Vitamin B12 04/09/2023 M-Vitamin D 25 Hydroxy 09/28/2024 M-Folate 04/09/2023 G-Yubg-Cxfseb Citrullinated Pept 025 M-Fecal Fat, Qualitative 05/17/2022 [...] Coverage End Date R [place] [address] [place] [address] [id number] Catherine Pryor Self - patient is the [...] 04/2017 @ [facility]
--- OUTSIDE RECORDS SUMMARY | 2025-06-03 15:33 | XMS_ITS | Encounter Summary ---
[facility] Address [address] [place] [address] Care Team Providers Care Sales And Marketing Engineer Name Role Phone Provider, No Known Primary Care Provider Unavail able Encounter Details Date Type Department Care Team (Latest Contact Info) Description 06/03/2025 Travel Social History Tobacco Use Types Packs/Day Years Used Date Smoking Tobacco: Never Assessed Comments Unknown Sex and Gender Information Value Date Recorded Sex Assigned at Not on file Legal Sex Female 9:25 AM EDT Gender Identity Not on file Sexual Orientation Not on file documented as of this encounter Plan of Treatment Upcoming Encounters Date Type Department Care Team (Late st Contact Info) Description 06/24/2025 10:15 AM EST Appointment [facility] [address] [facility] [place] [phone] Scooby Jones documented as of this encounter Visit Diagnoses Not on filedocumented in this encounter Care Teams Sales And Marketing Engineer Relationship Specialty Start Date End Date Provider, No Known [facility] [place] [address] PCP - General 06/03/25 documented as of this encounter
--- OUTSIDE RECORDS SUMMARY | 2025-06-03 15:33 | XMS_ITS | Clinical Summary ---
[facility] Address [address] [place] [address] Care Team Providers Care Cable Splicer Apprentice Name Role Phone Provider, No Known Primary Care Provider Unavail able Encounters Date Type Department Care Team Description 06/03/2025 8:55 AM EDT Hospital Encounter [facility] [address] [place] [phone] Scooby Jones 06/03/2025 Travel from Last 3 Months Social History Tobacco Use Types Packs/Day Years Used Date Smoking Tobacco: Never Assessed Comments Unknown Sex and Gender Information Value Date Recorded Sex Assigned at Not on file Legal Sex Female 9:25 AM EDT Gender Identity Not on file Sexual Orientation Not on file Plan of Treatment Upcoming Encounters Date Type Department Care Team (Late st Contact Info) Description 06/24/2025 10:15 AM EST Appointment [facility] [address] [place] [phone] Scooby Jones Health Maintenance Due Date Last Done Comments ANNUAL PHYSICAL 1987 Annual Gynecologic Pelvic an d Breast Exam 1987 HEPATITIS C SCREENING 1987 TDAP/TD VACCINES (1 - Tdap) 2006 INFLUENZA VACCINE 03/18/2025 Pneumococcal Vaccine 0-49 Aged Out No longer eligible based on patient's age to complete this topic Insurance [facility] Care Teams Cable Splicer Apprentice Relationship Specialty Start Date End Date Provider, [place] [address] PCP - General 06/03/25
== END 2025-06-03 23:59 | disposition home or self-care (01) ==
LOC: LAB 15:32
PROVIDERS: PCP Internal Medicine Adolescent Medicine; Visit Provider Nurse Practitioner Family
DX: R14.0 Abdominal distension (gaseous) (principal)
CPT/HCPCS: 82653

== ENCOUNTER 2025-07-26 08:18 | Outpatient (CLI) | payer OTHER, SELFPAY ==
[2025-07-26 08:43] LABS: Hematocrit 36.4 % (37.0-47.0); Hemoglobin 11.5 g/dL (12.2-16.2); Immature Granulocytes % 0.3 %; Mean Corpuscular HGB Conc 31.6 g/dL (31.8-35.4); Mean Corpuscular Hemoglobin 27.3 pg (27.0-31.2); Mean Corpuscular Volume 86.5 fl (81-99); Nucleated Red Blood Cells % 0 %; Platelet Count 330 K/mm3 (142-424); Red Blood Count 4.21 M/mm3 (4.20-5.40); Red Cell Distribution Width-SD 45.4 fL; White Blood Count 6.3 K/mm3 (4.8-10.8)
[2025-07-26 09:38] LABS: Alanine Aminotransferase 12 U/L (12-78); Albumin Level 4.3 g/dl (3.5-5.0); Alkaline Phosphatase 66 U/L (38-126); Anion Gap 13.4 mEq/L (5-15); Aspartate Amino Transferase 26 U/L (14-36); Bilirubin,Direct 0.1 mg/dl (0.0-0.4); Bilirubin,Indirect 0.4 mg/dL (0.0-0.9); Bilirubin,Total 0.5 mg/dl (0.2-1.3); Bilirubin,Unconjugated 0.4 mg/dL (0.0-1.1); Blood Urea Nitrogen 9 mg/dl (7-17); Calcium 9.1 mg/dl (8.4-10.2); Carbon Dioxide 25 mmol/L (22.0-30.0); Chloride 106 mmol/L (98-107); Cholesterol 163 mg/dl (140-200); Creatinine,Serum 0.80 mg/dl (0.52-1.04); Estimated Glomerular Filt Rate 81 ml/min (>60); GFR (African American) 98 ML/MIN (>60); Glucose 87 mg/dl (74-100); HDL Cholesterol 49 mg/dl (40-60); Magnesium 2.0 mg/dl (1.6-2.3); Potassium 4.4 mmoL/L (3.5-5.1); Sodium 140 mmol/L (136-145); Total Protein,Serum 7.0 g/dl (6.3-8.2); Triglycerides 82 mg/dl (30-150)
[2025-07-26 09:53] LABS: Free T4 (Free Thyroxine) 1.29 ng/dl (0.78-2.19)
[2025-07-26 10:06] LABS: Thyroid Stimulating Hormone 2.42 uIU/mL (0.465-4.68)
== END 2025-07-26 23:59 | disposition home or self-care (01) ==
LOC: LAB 08:18
PROVIDERS: PCP Internal Medicine Adolescent Medicine; Visit Provider Physician Assistant
DX: R00.2 Palpitations (principal); R03.0 Elevated blood-pressure reading, without diagnosis of hypertension
CPT/HCPCS: 36415; 80048; 80061; 80076; 83735; 84439; 84443; 85025